=== PATIENT | male | born 1950 | race Caucasian/White ===

== ENCOUNTER 2018-10-15 18:02 | Emergency (ER) | payer OTHER ==
[2018-10-15 19:08] LABS: Absolute Lymphocytes (CBC) 0.5 K/uL (0.7-4.9); Absolute Monocytes 0.1 K/uL (0.1-1.3); Absolute Neutrophil 0.6 K/uL (1.8-8.0); Basophils % 0.6 % (0-1.3); Eosinophils % 4.4 % (0-4.4); Hematocrit 32.3 % (39.6-49.0); Lymphocytes % 41.2 % (15.3-44.8); MPV 9.1 fL (7.6-11.3); RBC Red Blood Cell Count 3.97 M/uL (4.33-5.43)
[2018-10-15 19:16] LABS: Potassium 4.8 mmol/L (3.5-5.1)
--- NOTE | 2018-10-15 20:25 | RAD REPORT ---
EXAM DESCRIPTION: CT - Chest Abdomen Pelvis W Cont - 10/15/2018 7:54 pm CLINICAL HISTORY: Chest and abdominal pain swallowed a toothpick COMPARISON: CT abdomen 2007 TECHNIQUE: Computed axial tomography of the chest, abdomen and pelvis was obtained. 100 cc Isovue-30 0 was administered intravenously. Oral contrast was given All CT scans are performed using dose optimization technique as appropriate and may include automated exposure control or mA/KV adjustment according to patient size. FINDINGS: The lungs are essentially clear. No mediastinal or hilar lymphadenopathy. A pleural effusion is not present. A pericardial effusion is not seen. Contrast is present throughout the thoracic esophagus. A cirrhotic liver with fatty infiltration The spleen measures 18 centimeters. Abdominal varices are present. The pancreas, adrenals and kidneys appear unremarkable. There is no evidence of diverticulitis. Small umbilical hernia contains fat A toothpick is not seen within the lungs. Evaluation for a toothpick within the the esophagus and sto mach is limited since each is opacified with contrast. Toothpick is not seen within duodenum or small bowel or colon Prostate gland moderately enlarged IMPRESSION: A toothpick is not visualized within the chest, abdomen or pelvis
[2018-10-15 20:40] LABS: Blood Morphology Comment NOTED (NOT SEEN); Ovalocytes 2+; Platelet Estimate DECR; Urine White Blood Cell Casts OK
--- NOTE | 2018-10-15 20:46 | ER ---
Nurse's Notes [facility] Name: Vasu Balderas Age: 68 yrs Sex: Male : 1950 Arrival Date: 10/15/2018 Time: 18:04 Bed 27 Private MD: Luis Ruiz Diagnosis: Unspecified cirrhosis of liver;Neutropenia Presentation: 10/15 18:07 Presenting complaint: Patient states: "I believe I swallowed a toothpick yesterday aa5 afternoon around 1pm". Pt states "I fell asleep and I woke up and I felt something going down my throat and I still have the sensation that something is stuck". Pt denies trouble swallowing. Transition of care: patient was not received from another setting of care. Onset of symptoms was October 2018. Risk Assessment: Do you want to hurt yourself or someone else? Patient reports no desire to harm self or others. Initial Sepsis Screen: Does the patient meet any 2 criteria? No. Patient's initial sepsis screen is negative. Does the patient have a suspected source of infection? No. Patient's initial sepsis screen is negative. Care prior to arrival: None. 18:07 Method Of Arrival: Ambulatory aa5 18:07 Acuity: MABEL 3 aa5 Historical: - Allergies: 18:10 No Known Allergies; aa5 - PMHx: 18:10 Asthma; Cirrhosis; Diabetes - NIDDM; Sinusitis; Sleep Apnea; Diverticulitis; prostate aa5 problems; - PSHx: 18:10 TURP; aa5 - Immunization history:: Adult Immunizations up to date. - Social history:: Smoking status: Patient/guardian denies using tobacco. - Ebola Screening: : No symptoms or risks identified at this time. Screenin:27 Abuse screen: Denies threats or abuse. Denies injuries from another. Nutritional mg2 screening: No deficits noted. Tuberculosis screening: No symptoms or risk factors identified. Fall Risk None identified. Assessment: 18:27 General: Appears in no apparent distress. comfortable, Behavior is calm, cooperative. mg2 Pain: Complains of pain in chest Pain does not radiate. Neuro: Level of Consciousness is awake, alert, obeys commands, Oriented to person, place, time, situation. Cardiovascular: Capillary refill < 3 seconds Patient's skin is warm and dry. Respiratory: Reports shortness of breath at rest Airway is patent Respiratory effort is even, unlabored, Respiratory pattern is regular, symmetrical. GI: No signs and/or symptoms were reported involving the gastrointestinal system. : No signs and/or symptoms were reported regarding the genitourinary system. EENT: No signs and/or symptoms were reported regarding the EENT system. Derm: Skin is intact, is healthy with good turgor, Skin is pink, warm \\T\\ dry. normal. Musculoskeletal: Circulation, motion, and sensation intact. Capillary refill < 3 seconds. 21:06 Reassessment: Patient denies pain at this time. mg2 Vital Signs: 18:10 BP 168 / 71; Pulse 84; Resp 16 S; Temp 98.6(TE); Pulse Ox 97% on R/A; Pain 0/10; aa5 20:10 BP 164 / 79; Pulse 86; Resp 18; Temp 98; Pulse Ox 98% on R/A; Pain 0/10; mg2 21:05 BP 145 / 78; Pulse 88; Resp 18; Temp 98; Pulse Ox 100% on R/A; Pain 0/10; mg2 ED Course: 18:04 Patient arrived in ED. mr 18:05 Luis Ruiz MD is Private Physician. mr 18:07 Arm band placed on. aa5 18:08 Triage completed. aa5 18:11 Taurus Taylor MD is Attending Physician. kdr 18:14 Zain Walker, ZI is Primary Nurse. mg2 18:27 No provider procedures requiring assistance completed. mg2 18:28 Patient has correct armband on for positive identification. mg2 18:31 Radiology exam delayed due to lab results not completed at this time. (BUN/Creatinine). vm2 18:50 Radiology exam delayed due to lab results not completed at this time. (BUN/Creatinine). vm2 18:59 Inserted saline lock: 20 gauge in right upper arm, using aseptic technique. Blood mg2 collected. 19:08 Attending Physician role handed off by Taurus Taylor MD [facility] 19:08 Anthony Peace MD is Attending Physician. naya 19:32 Notified ED physician of a critical lab result(s). WBCs of 1.2, Plt 39, Dr Peace bb notified. 19:54 Chest Abdomen Pelvis W Cont In Process Unspecified. EDMS 20:45 Luis Ruiz MD is Referral Physician. naya 20:45 Inocencio Malik MD is Referral Physician. naya 21:05 IV discontinued, intact, bleeding controlled, No redness/swelling at site. Pressure mg2 dressing applied. Administered Medications: No medications were administered Outcome: 20:45 Discharge ordered by . naya 21:06 Discharged to home ambulatory, with family. mg2 21:06 Condition: stable 21:06 Discharge instructions given to patient, family, Instructed on discharge instructions, follow up and referral plans. medication usage, Demonstrated understanding of instructions, follow-up care, medications, Prescriptions given X 1. 21:07 Patient left the ED. mg2 Signatures: Dispatcher [employer] EDMS Anthony Peace MD MD cha Rittger, Kevin, MD MD kdr Rivera, Mary mr Daphne Moss, RN RN Linsey Garcia RN RN aa5 Nelly Escobar [facility] Zain Walker RN RN mg2 Corrections: (The following items were deleted from the chart) 18:11 18:10 BP 168 / 71; Pulse 84bpm; Resp 16bpm; Spontaneous; Pulse Ox 97% RA; Temp 98.6F aa5 Temporal; aa5 18:59 18:27 Patient did not have IV access during this emergency room visit. mg2 mg2
--- NOTE | 2018-10-15 20:46 | EDPHYS ---
Physician Documentation [facility] Name: Vasu Balderas Age: 68 yrs Sex: Male : 1950 Arrival Date: 10/15/2018 Time: 18:04 Bed 27 Private MD: Luis Ruiz ED Physician Anthony Peace HPI: 10/15 18:28 This 68 yrs old Male presents to ER via Ambulatory with complaints of kdr Swallowed Foreign Body. 18:28 The patient or guardian reports the patient has a suspected foreign body, The reported kdr likely foreign body is a toothpick. Onset: The symptoms/episode began/occurred yesterday. Current symptoms: none, Has a "funny" feeling in his chest. Treatment Prior to Arrival: none. The patient has not experienced similar symptoms in the past. The patient has not recently seen a physician. Historical: - Allergies: 18:10 No Known Allergies; aa5 - PMHx: 18:10 Asthma; Cirrhosis; Diabetes - NIDDM; Sinusitis; Sleep Apnea; Diverticulitis; prostate aa5 problems; - PSHx: 18:10 TURP; aa5 - Immunization history:: Adult Immunizations up to date. - Social history:: Smoking status: Patient/guardian denies using tobacco. - Ebola Screening: : No symptoms or risks identified at this time. ROS: 18:28 Constitutional: Negative for fever, chills, and weight loss, Eyes: Negative for injury, kdr pain, redness, and discharge, ENT: Negative for injury, pain, and discharge, Neck: Negative for injury, pain, and swelling, Cardiovascular: Negative for chest pain, palpitations, and edema - he does have a "funny" feelin in his left upper chest Respiratory: Negative for shortness of breath, cough, wheezing, and pleuritic chest pain, Abdomen/GI: Negative for abdominal pain, nausea, vomiting, diarrhea, and constipation, Back: Negative for injury and pain, : Negative for injury, bleeding, discharge, and swelling, MS/Extremity: Negative for injury and deformity, Skin: Negative for injury, rash, and discoloration, Neuro: Negative for headache, weakness, numbness, tingling, and seizure activity. Psych: Negative for depression, anxiety, suicide ideation, homicidal ideation, and hallucinations, Allergy/Immunology: Negative for hives, rash, and allergies, Endocrine: Negative for neck swelling, polydipsia, polyuria, polyphagia, and marked weight changes, Hematologic/Lymphatic: Negative for swollen nodes, abnormal bleeding, and unusual bruising. Exam: 18:31 Constitutional: This is a well developed, well nourished patient who is awake, alert, kdr and in no acute distress. Head/Face: Normocephalic, atraumatic. Eyes: Pupils equal round and reactive to light, extra-ocular motions intact. Lids and lashes normal. Conjunctiva and sclera are non-icteric and not injected. Cornea within normal limits. Periorbital areas with no swelling, redness, or edema. Neck: Trachea midline, no thyromegaly or masses palpated, and no cervical lymphadenopathy. Supple, full range of motion without nuchal rigidity, or vertebral point tenderness. No Meningismus. Chest/axilla: Normal chest wall appearance and motion. Nontender with no deformity. No lesions are appreciated. Cardiovascular: Regular rate and rhythm with a normal S1 and S2. No gallops, murmurs, or rubs. Normal PMI, no JVD. No pulse deficits. Respiratory: Lungs have equal breath sounds bilaterally, clear to auscultation and percussion. No rales, rhonchi or wheezes noted. No increased work of breathing, no retractions or nasal flaring. Abdomen/GI: Soft, non-tender, with normal bowel sounds. No distension or tympany. No guarding or rebound. No evidence of tenderness throughout. Back: No spinal tenderness. No costovertebral tenderness. Full range of motion. Skin: Warm, dry with normal turgor. Normal color with no rashes, no lesions, and no evidence of cellulitis. MS/ Extremity: Pulses equal, no cyanosis. Neurovascular intact. Full, normal range of motion. Neuro: Awake and alert, GCS 15, oriented to person, place, time, and situation. Cranial nerves II-XII grossly intact. Motor strength 5/5 in all extremities. Sensory grossly intact. Cerebellar exam normal. Normal gait. Psych: Awake, alert, with orientation to person, place and time. Behavior, mood, and affect are within normal limits. Vital Signs: 18:10 BP 168 / 71; Pulse 84; Resp 16 S; Temp 98.6(TE); Pulse Ox 97% on R/A; Pain 0/10; aa5 20:10 BP 164 / 79; Pulse 86; Resp 18; Temp 98; Pulse Ox 98% on R/A; Pain 0/10; mg2 21:05 BP 145 / 78; Pulse 88; Resp 18; Temp 98; Pulse Ox 100% on R/A; Pain 0/10; mg2 MDM: 18:31 Data reviewed: vital signs, nurses notes, lab test result(s), EKG, radiologic studies. kdr Counseling: I had a detailed discussion with the patient and/or guardian regarding: the historical points, exam findings, and any diagnostic results supporting the discharge/admit diagnosis, lab results, radiology results, the need for outpatient follow up. 19:08 Patient medically screened. naya 10/15 18:28 Order name: CBC with Diff kdr 10/15 18:28 Order name: Chem 7; Complete Time: 19:49 kdr 10/15 18:29 Order name: CBC with Automated Diff; Complete Time: 20:44 EDMS 10/15 18:30 Order name: Troponin (emerg Dept Use Only); Complete Time: 19:49 kdr 10/15 19:27 Order name: CBC Smear Scan; Complete Time: 20:44 EDMS 10/15 18:30 Order name: EKG Strip; Complete Time: 18:57 kdr 10/15 19:46 Order name: Chest Abdomen Pelvis W Cont; Complete Time: 20:44 EDMS Administered Medications: No medications were administered Disposition: 10/15/18 20:45 Discharged to Home. Impression: Unspecified cirrhosis of liver, Neutropenia. - Condition is Stable. - Discharge Instructions: Diet and Hepatitis, Swallowed Foreign Body, Pediatric, Swallowed Foreign Body, Adult, [id number], Foreign Body. - Prescriptions for Protonix 40 mg Oral Tablet - take 1 tablet by ORAL route once daily; 30 tablet. - Medication Reconciliation Form, Thank You Letter, Antibiotic Education, Prescription Opioid Use form. - Follow up: Luis Ruiz; When: 1 - 2 days; Reason: Recheck today's complaints, Continuance of care, Re-evaluation by your physician. Follow up: Inocencio Malik; When: 2 - 3 days; Reason: Recheck today's complaints, Re-evaluation by your physician. - Problem is new. - Symptoms have improved. Signatures: Dispatcher [employer] EDMS Anthony Peace MD MD cha Rittger, Kevin, MD MD kdr Calderon, Audri, RN RN aa5 Zain Walker, RN RN mg2 Corrections: (The following items were deleted from the chart) 19:46 18:29 Abdomen Pelvis W Con+CT.RAD.BRZ ordered. [facility] 21:07 20:45 10/15/2018 20:45 Discharged to Home. Impression: Unspecified cirrhosis of liver; mg2 Neutropenia. Condition is Stable. Discharge Instructions: Diet and Hepatitis, Swallowed Foreign Body, Pediatric, Swallowed Foreign Body, Adult, [id number], Foreign Body. Prescriptions for Protonix 40 mg Oral Tablet - take 1 tablet by ORAL route once daily; 30 tablet. and Forms are Medication Reconciliation Form, Thank You Letter, Antibiotic Education, Prescription Opioid Use. Follow up: Luis Ruiz; When: 1 - 2 days; Reason: Recheck today's complaints, Continuance of care, Re-evaluation by your physician. Follow up: Inocencio Malik; When: 2 - 3 days; Reason: Recheck today's complaints, Re-evaluation by your physician. Problem is new. Symptoms have improved. naya
[2018-10-15 21:37] VITALS: TEMP 98
[2018-10-15 21:39] VITALS: BP 145/78; O2SAT 100
--- NOTE | 2018-10-16 08:08 | EKG ---
Test Date: 2018-10-15 Test Time: 18:55:38 Business Systems Advisor: MG MEASUREMENT RESULTS: Intervals: Rate: 81 MD: 170 QRSD: 78 QT: 380 QTc: 441 [place]: P: 66 MD: 170 QRS: 54 T: 52 INTERPRETIVE STATEMENTS: Normal sinus rhythm Normal ECG Compared to ECG 03/13/2014 10:58:47 No significant changes Electronically Signed On 10-16-18 08:07:06 CDT by Paul Linn
== END 2018-10-15 21:07 | disposition home or self-care (01) ==
LOC: ER 18:02
DX: D70.9 Neutropenia, unspecified (principal); K74.60 Unspecified cirrhosis of liver
CPT/HCPCS: 93005; 85025; 80048; 36415; 84484; 71260; 74177; 99284; Q9967

== ENCOUNTER 2019-03-17 09:36 | Emergency (ER) | payer OTHER ==
--- OUTSIDE RECORDS SUMMARY | 2019-03-17 09:38 | XMS REPORT ---
:1950 Author Organization e[employer] Care Team Providers Name Role Phone Olimpia Martinezh Provider Role Unavailable Allergies, Adverse Reactions, Alerts Substance Reaction Event Type Sulfa Info Not Available Drug Allergy Problems Problem Type Condition Code Onset Dates Condition Status Problem Erectile dysfunction, unspecified N52.9 Active erectile dysfunction type Problem Thrombocytopenia D69.6 Active Problem Kidney stones N20.0 Active Problem Body mass index (BMI) 30.0-30.9, Z68.30 Active adult Problem GERD without esophagitis K21.9 Active Problem Other obesity due to excess calories E66.09 Active Problem HTN, goal below 130/80 I10 Active Problem Type 2 diabetes mellitus with other E11.69 Active specified complication, unspecified whether intermediate teacher insulin use Problem Hypothyroidism, unspecified type E03.9 Active Problem Benign prostatic hyperplasia with N40.1 Active lower urinary tract symptoms, symptom details unspecified Assessment Thrombocytopenia D69.6 Active Assessment Erectile dysfunction, unspecified N52.9 Active erectile dysfunction type Assessment Body mass index (BMI) 30.0-30.9, Z68.30 Active adult Assessment Other obesity due to excess calories E66.09 Active Assessment Hypothyroidism, unspecified type E03.9 Active Assessment Type 2 diabetes mellitus with other E11.69 Active specified complication, unspecified whether intermediate teacher insulin use Assessment GERD without esophagitis K21.9 Active Assessment HTN, goal below 130/80 I10 Active Assessment Benign prostatic hyperplasia with N40.1 Active lower urinary tract symptoms, symptom details unspecified Medications Medication Code Code Instructions Start End Status Dosage System Date Date Terazosin HCl ND 17301342975 10 MG Orally Active 1 capsule Twice a day at bedtime Metformin HCl ND 19599165541 1000 MG Orally Active 1 tablet Twice a day with a meal Tamsulosin HCl ND 45784107219 0.4 MG Orally Jan 24, Mar 25, Active 1 capsule Once a day 2018 2018 Levothyroxine ND 88850788824 50 MCG Orally Active 1 tablet Sodium Once a day on an empty stomach in the morning Ramipril [facility] 94298447390 5 MG Orally Active 1 capsule Once a day Omeprazole [facility] 06796762073 40 MG Orally Active 1 capsule Once a day Results No Known Results Summary Purpose [employer] Submission
--- OUTSIDE RECORDS SUMMARY | 2019-03-17 09:39 | XMS REPORT ---
:1950 Author Organization [employer] Care Team Providers Name Role Phone Juan Diaz Provider Role Unavailable Allergies No Known Allergies Problems Problem Type Condition Code Onset Dates [...] other E11.69 Active specified complication, unspecified whether halfway insulin use Problem Hypothyroidism, unspecified type E03.9 Active Problem Benign prostatic hyperplasia with N40.1 Active lower urinary tract symptoms, symptom details unspecified Medications No Known Medications Results No Known Results Summary Purpose [employer] Submission
--- NOTE | 2019-03-17 10:49 | RAD REPORT ---
EXAM DESCRIPTION: RAD - Chest Single View - 03/17/2019 10:38 am CLINICAL HISTORY: CHEST PAIN Chest pain. COMPARISON: CHEST PA AND LAT 2 VIEW dated 06/16/2014; CHEST SINGLE VIEW dated 04/18/2014; CHEST PA AN D LAT 2 VIEW dated 05/24/2012; Chest Abdomen Pelvis W Cont dated 10/15/2018 FINDINGS: Portable technique limits examination quality. Emphysematous changes are present throughout the lungs. Vague focal opacity in the left lung base is noted, likely an area of scarring or atelectasis. The heart is normal in size. No displaced fractures .
[2019-03-17 11:00] LABS: Absolute Lymphocytes (CBC) 0.3 K/uL (0.7-4.9); Basophils % 1.1 % (0-1.3); Hematocrit 23.2 % (39.6-49.0); Lymphocytes % 30.6 % (15.3-44.8); MPV 8.2 fL (7.6-11.3); RBC Red Blood Cell Count 2.98 M/uL (4.33-5.43)
[2019-03-17 11:03] LABS: Protime INR 1.31
[2019-03-17 11:31] LABS: ALT/SGPT 20 U/L (12-78); AST/SGOT 17 U/L (15-37); Albumin 3.5 g/dL (3.4-5.0); Alkaline Phosphatase 79 U/L (45-117); BUN Blood Urea Nitrogen 16 mg/dL (7-18); Bicarbonate 24 mmol/L (21-32); Bilirubin Direct 0.2 mg/dL (0-0.2); Bilirubin Total 0.5 mg/dL (0.2-1.0); Glucose Level 194 mg/dL (74-106); Magnesium 1.6 mg/dL (1.8-2.4); NT PRO-BNP 96 pg/mL (<125); Potassium 5.5 mmol/L (3.5-5.1); Protein, Total 7.3 g/dL (6.4-8.2); Sodium Level 140 mmol/L (136-145); Troponin (Emerg Dept Use Only) < 0.02 ng/mL (0.0-0.045)
[2019-03-17 12:54] LABS: Anisocytosis 2+; Blood Morphology Comment NOTED (NOT SEEN); Elliptocytes 1+; Platelet Estimate DECR; Poikilocytosis 2+; Urine White Blood Cell Casts OK
[2019-03-17] MEDS ORDERED: SOD POLYSTYREN SUL 15 GM/60 ML UCUP ONE (13:14)
--- NOTE | 2019-03-17 13:15 | ER ---
Nurse's Notes [facility] Name: Vasu Balderas Age: 69 yrs Sex: Male : 1950 Arrival Date: 03/17/2019 Time: 09:38 Bed 19 Private MD: Diaz Martinez Diagnosis: Anemia, unspecified;Neutropenia, unspecified-chronic;Thrombocytopenia, unspecified-chronic Presentation: 03/17 10:06 Presenting complaint: Patient states: Sent by Dr Martinez for abnormal labs, states, " I'm ph not sure what they said but it was 3 things, something about platelets being low." Pt reports SOB, fatigue and chest pain when walking x "a few months". Transition of care: patient was not received from another setting of care. Onset of symptoms was March 17, 2019. Risk Assessment: Do you want to hurt yourself or someone else? Patient reports no desire to harm self or others. Initial Sepsis Screen: Does the patient meet any 2 criteria? No. Patient's initial sepsis screen is negative. Does the patient have a suspected source of infection? No. Patient's initial sepsis screen is negative. Care prior to arrival: None. 10:06 Method Of Arrival: Ambulatory ph 10:06 Acuity: MABEL 3 ph Historical: - Allergies: 10:16 Sulfa (Sulfonamide Antibiotics); ph - Home Meds: 10:16 metformin 1,000 mg Oral tab 1 tab 2 times per day [Active]; omeprazole 40 mg Oral cpDR ph 1 cap once daily [Active]; levothyroxine 50 mcg tab 1 tab once daily [Active]; ramipril 5 mg Oral cap 1 cap once daily [Active]; - PMHx: 10:16 Asthma; Cirrhosis; Diabetes - NIDDM; Diverticulitis; prostate problems; Sinusitis; ph Sleep Apnea; GERD; - PSHx: 10:16 TURP; Tonsillectomy; Appendectomy; ph - Immunization history:: Adult Immunizations unknown. - Social history:: Smoking status: Patient/guardian denies using tobacco. - Ebola Screening: : No symptoms or risks identified at this time. Screenin:16 Abuse screen: Denies threats or abuse. Denies injuries from another. Nutritional ph screening: No deficits noted. Tuberculosis screening: No symptoms or risk factors identified. Fall Risk None identified. Assessment: 10:18 General: Appears in no apparent distress. comfortable, well groomed, Behavior is calm, ph cooperative, appropriate for age, Reports fatigue for >3 days, Denies fever. Pain: Complains of pain in chest Pain does not radiate. Is intermittent. Neuro: Level of Consciousness is awake, alert, obeys commands, Oriented to person, place, time, situation. Cardiovascular: Reports chest pain, fatigue, lightheadedness, palpitations, shortness of breath, Denies nausea, vomiting, Capillary refill < 3 seconds in bilateral fingers Patient's skin is warm and dry. Rhythm is sinus rhythm Chest pain quality is pressure, is located in right left anterior chest wall episodes are intermittent is aggravated by activity. Respiratory: Reports shortness of breath on exertion Airway is patent Respiratory effort is even, unlabored, Respiratory pattern is regular, symmetrical. GI: Derm: Skin is intact, Skin is pale. Musculoskeletal: Circulation, motion, and sensation intact. Range of motion: intact in all extremities. 11:03 Reassessment: WBC 1, Hgb 7.4, Plt 41, ERP notified. 7 11:10 Reassessment: Patient appears in no apparent distress at this time. No changes from 7 previously documented assessment. Patient and/or family updated on plan of care and expected duration. Pain level reassessed. Patient is alert, oriented x 3, equal unlabored respirations, skin warm/dry/pink. 12:00 Reassessment: Patient appears in no apparent distress at this time. No changes from 7 previously documented assessment. Patient and/or family updated on plan of care and expected duration. Pain level reassessed. Patient is alert, oriented x 3, equal unlabored respirations, skin warm/dry/pink. 13:00 Reassessment: MASSIMO Hoang at bedside discussing results and POC. jl7 Vital Signs: 10:11 BP 138 / 54; Pulse 104; Resp 20; Temp 99.0(TE); Pulse Ox 100% on R/A; Weight 103.87 kg; ph Height 6 ft. 0 in. (182.88 cm); 11:00 BP 113 / 57; Pulse 91; Resp 16; Pulse Ox 100% ; Pain 0/10; jl7 13:00 BP 125 / 58; Pulse 89; Resp 16 S; Pulse Ox 98% on R/A; jl7 10:11 Body Mass Index 31.06 (103.87 kg, 182.88 cm) ph ED Course: 09:38 Patient arrived in ED. mr 09:38 Diaz Martinez DO is Private Physician. mr 09:51 Huyen Aguirre, ZI is Primary Nurse. ph 10:02 Viktor Gardner NP is PHCP. pm1 10:02 Taurus Taylor MD is Attending Physician. pm1 10:11 Triage completed. ph 10:16 Arm band placed on Patient placed in an exam room, on a stretcher, on cafeteria monitor, ph on pulse oximetry. 10:17 Patient has correct armband on for positive identification. Placed in gown. Bed in low ph position. Call light in reach. Side rails up X2. cafeteria monitor on. Pulse ox on. NIBP on. Door closed. Noise minimized. Warm blanket given. Head of bed elevated. 10:43 XRAY Chest (1 view) In Process Unspecified. EDMS 10:52 EKG done, by feed research technician. reviewed by Viktor Gardner NP. at1 13:12 Diaz Martinez DO is Referral Physician. pm1 13:14 Argentina Nelson MD is Referral Physician. pm1 13:15 Brooks Mason MD is Referral Physician. pm1 13:25 No provider procedures requiring assistance completed. IV discontinued, intact, jl7 bleeding controlled, No redness/swelling at site. Pressure dressing applied. Administered Medications: 13:22 Drug: Kayexalate 30 grams Route: PO; jl7 13:22 Follow up: Response: Medication administered at discharge. jl7 Outcome: 13:14 Discharge ordered by . pm1 13:25 Discharged to home ambulatory. jl7 13:25 Condition: stable 13:25 Discharge instructions given to patient, family, Instructed on discharge instructions, follow up and referral plans. Demonstrated understanding of instructions, follow-up care. 13:27 Patient left the ED. jl7 Signatures: Dispatcher [employer] TAINA JhonEkaterina mr Roddy Amanda, audio recording engineer EKG Tat1 Huyen Aguirre, ZI RN ph Viktor Gardner, MASSIMO TANKERMAN pm1 Edwin Ruiz RN RN jl7
--- NOTE | 2019-03-17 13:15 | EDPHYS ---
Physician Documentation [facility] Name: Vasu Balderas Age: 69 yrs Sex: Male : 1950 Arrival Date: 03/17/2019 Time: 09:38 Bed 19 Private MD: [facility] ED Physician Taurus Taylor HPI: 03/17 10:23 This 69 yrs old Male presents to ER via Ambulatory with complaints of pm1 Abnormal Lab Results. 10:23 Patient instructed to report the ER for evaluation of abnormal labs. Patient told that pm1 he has three abnormal lab results that he cannot recall. Thinks that one might be his platelets, has been in the low range for years. Had labs drawn yesterday at [facility] from his first visit with Dr. Martinez. The patient has been recently seen by a physician: the patient's primary care provider, Dr. Martinez yesterday. Patient reports fatigue for years , palpitations and chest pain with over exertion for the past 2-3 months. Walking his dog for at least half a block and he has to sit down to resolve his symptoms. Historical: - Allergies: 10:16 Sulfa (Sulfonamide Antibiotics); ph - Home Meds: 10:16 metformin 1,000 mg Oral tab 1 tab 2 times per day [Active]; omeprazole 40 mg Oral cpDR ph 1 cap once daily [Active]; levothyroxine 50 mcg tab 1 tab once daily [Active]; ramipril 5 mg Oral cap 1 cap once daily [Active]; - PMHx: 10:16 Asthma; Cirrhosis; Diabetes - NIDDM; Diverticulitis; prostate problems; Sinusitis; ph Sleep Apnea; GERD; - PSHx: 10:16 TURP; Tonsillectomy; Appendectomy; ph - Immunization history:: Adult Immunizations unknown. - Social history:: Smoking status: Patient/guardian denies using tobacco. - Ebola Screening: : No symptoms or risks identified at this time. ROS: 10:30 Constitutional: Negative for fever, chills, and weight loss, Eyes: Negative for injury, pm1 pain, redness, and discharge, ENT: Negative for injury, pain, and discharge, Neck: Negative for injury, pain, and swelling, Cardiovascular: Negative for chest pain, palpitations, and edema, Respiratory: Negative for shortness of breath, cough, wheezing, and pleuritic chest pain, Abdomen/GI: Negative for abdominal pain, nausea, vomiting, diarrhea, and constipation, Back: Negative for injury and pain, : Negative for injury, bleeding, discharge, and swelling, MS/Extremity: Negative for injury and deformity, Skin: Negative for injury, rash, and discoloration, Neuro: Negative for headache, weakness, numbness, tingling, and seizure. Exam: 10:30 Constitutional: This is a well developed, well nourished patient who is awake, alert, pm1 and in no acute distress. Head/Face: Normocephalic, atraumatic. Eyes: Pupils equal round and reactive to light, extra-ocular motions intact. Lids and lashes normal. Conjunctiva and sclera are non-icteric and not injected. Cornea within normal limits. Periorbital areas with no swelling, redness, or edema. ENT: Nares patent. No nasal discharge, no septal abnormalities noted. Tympanic membranes are normal and external auditory canals are clear. Oropharynx with no redness, swelling, or masses, exudates, or evidence of obstruction, uvula midline. Mucous membranes moist. Neck: Trachea midline, no thyromegaly or masses palpated, and no cervical lymphadenopathy. Supple, full range of motion without nuchal rigidity, or vertebral point tenderness. No Meningismus. Chest/axilla: Normal chest wall appearance and motion. Nontender with no deformity. No lesions are appreciated. Cardiovascular: Regular rate and rhythm with a normal S1 and S2. No gallops, murmurs, or rubs. Normal PMI, no JVD. No pulse deficits. Respiratory: Lungs have equal breath sounds bilaterally, clear to auscultation and percussion. No rales, rhonchi or wheezes noted. No increased work of breathing, no retractions or nasal flaring. Abdomen/GI: Soft, non-tender, with normal bowel sounds. No distension or tympany. No guarding or rebound. No evidence of tenderness throughout. Back: No spinal tenderness. No costovertebral tenderness. Full range of motion. Skin: Warm, dry with normal turgor. Normal color with no rashes, no lesions, and no evidence of cellulitis. MS/ Extremity: Pulses equal, no cyanosis. Neurovascular intact. Full, normal range of motion. 10:30 Neuro: Orientation: is normal, Motor: is normal, moves all fours. 13:00 Abdomen/GI: Rectal exam: rectal tone normal, Stool: normal, brown, skinner, guaiac pm1 negative, mass, is not appreciated, swelling, is not appreciated, tenderness, is not appreciated. Vital Signs: 10:11 BP 138 / 54; Pulse 104; Resp 20; Temp 99.0(TE); Pulse Ox 100% on R/A; Weight 103.87 kg; ph Height 6 ft. 0 in. (182.88 cm); 11:00 BP 113 / 57; Pulse 91; Resp 16; Pulse Ox 100% ; Pain 0/10; jl7 13:00 BP 125 / 58; Pulse 89; Resp 16 S; Pulse Ox 98% on R/A; jl7 10:11 Body Mass Index 31.06 (103.87 kg, 182.88 cm) ph MDM: 10:03 Patient medically screened. pm1 13:08 Physician consultation: [facility] Juan JAUREGUI was contacted at 13:05, regarding consult, pm1 patient's condition, since patient is hemodynamically stable can be discharged to home. has only seen the patient once so does not know the patient's lab history. Discussed lab results that I have from 2015 and his anemia is new and discussed possible cause of black tarry stool 1 month ago that lasted for 1 day and current negative stool guaiac. thrombocytopenia and leukopenia is chronic. Elevated K likely due to acei/arb. 13:09 Data reviewed: vital signs. Data interpreted: Pulse oximetry: on room air is 100 %. pm1 Interpretation: normal. 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 13:29 ED course: Patient instructed to stop salt substitute. Patient reports craving for pm1 mushrooms and has been putting substitute salt on substitute salt . 13:29 ED course: Patient's hyperkalemia likely due to heavy salt substitute ingestion. pm1 13:29 ED course: Has appointment with PCP in 5 days. pm1 03/17 10:10 Order name: Basic Metabolic Panel; Complete Time: 11:52 pm1 03/17 10:10 Order name: CBC with Diff; Complete Time: 13:11 pm1 03/17 10:10 Order name: LFT's; Complete Time: 11:52 pm1 03/17 10:10 Order name: Magnesium; Complete Time: 11:52 pm1 03/17 10:10 Order name: NT PRO-BNP; Complete Time: 11:52 pm1 03/17 10:10 Order name: PT-INR; Complete Time: 11:06 pm1 03/17 10:10 Order name: Troponin (emerg Dept Use Only); Complete Time: 11:52 pm1 03/17 10:10 Order name: XRAY Chest (1 view); Complete Time: 10:52 pm1 03/17 10:10 Order name: EKG; Complete Time: 10:11 pm1 03/17 10:10 Order name: Cardiac monitoring; Complete Time: 10:21 pm1 03/17 10:10 Order name: EKG - Nurse/Tech; Complete Time: 12:59 pm1 03/17 10:10 Order name: Type And Screen; Complete Time: 11:52 pm1 03/17 12:54 Order name: CBC Smear Scan; Complete Time: 13:11 EDMS 03/17 10:10 Order name: IV Saline Lock; Complete Time: 10:21 pm1 03/17 10:10 Order name: Labs collected and sent; Complete Time: 10:21 pm1 03/17 10:10 Order name: O2 Per Protocol; Complete Time: 10:21 pm1 03/17 10:10 Order name: O2 Sat Monitoring; Complete Time: 10:22 pm1 EC:52 Rate is 100 beats/min. Rhythm is regular, Normal Sinus Rhythm with No ectopy. No Q pm1 waves. T waves are Normal. No ST changes noted. Clinical impression: Normal ECG. Administered Medications: 13:22 Drug: Kayexalate 30 grams Route: PO; jl7 13:22 Follow up: Response: Medication administered at discharge. jl7 Disposition: 03/18 07:26 Co-signature as Attending Physician, Taurus Taylor MD I agree with the assessment and kdr plan of care. Disposition: 03/17/19 13:14 Discharged to Home. Impression: Anemia, unspecified, Neutropenia, unspecified - chronic, Thrombocytopenia, unspecified - chronic. - Condition is Stable. - Discharge Instructions: Anemia, Nonspecific, Thrombocytopenia, Neutropenia. - Medication Reconciliation Form, Thank You Letter, Antibiotic Education, Prescription Opioid Use form. - Follow up: Emergency Department; When: As needed; Reason: Worsening of condition. Follow up: Diaz Martinez DO; When: 5 - 6 days; Reason: Recheck today's complaints, Continuance of care, Re-evaluation by your physician. Follow up: Argentina Nelson MD; When: 2 - 3 days; Reason: Recheck today's complaints, Continuance of care, Re-evaluation by your physician. Follow up: Brooks Mason MD; When: 2 - 3 days; Reason: Recheck today's complaints, Continuance of care, Re-evaluation by your physician. - Problem is new. - Symptoms have improved. Signatures: Dispatcher [employer] EDMS Taurus Taylor MD MD [facility] Huyen Aguirre RN RN Viktor Gardner NP MOLD SANDER pm1 Edwin Ruiz RN RN jl7 Corrections: (The following items were deleted from the chart) 03/17 13:15 13:14 03/17/2019 13:14 Discharged to Home. Impression: Anemia, unspecified; pm1 Neutropenia, unspecified - chronic; Thrombocytopenia, unspecified - chronic. Condition is Stable. Forms are Medication Reconciliation Form, Thank You Letter, Antibiotic Education, Prescription Opioid Use. Follow up: Emergency Department; When: As needed; Reason: Worsening of condition. Follow up: Diaz Martinez; When: 5 - 6 days; Reason: Recheck today's complaints, Continuance of care, Re-evaluation by your physician. Problem is new. Symptoms have improved. pm1 13:27 13:15 03/17/2019 13:14 Discharged to Home. Impression: Anemia, unspecified; jl7 Neutropenia, unspecified - chronic; Thrombocytopenia, unspecified - chronic. Condition is Stable. Discharge Instructions: Anemia, Nonspecific, Thrombocytopenia, Neutropenia. Forms are Medication Reconciliation Form, Thank You Letter, Antibiotic Education, Prescription Opioid Use. Follow up: Emergency Department; When: As needed; Reason: Worsening of condition. Follow up: Diaz Martinez; When: 5 - 6 days; Reason: Recheck today's complaints, Continuance of care, Re-evaluation by your physician. Follow up: Argentina Kolb; When: 2 - 3 days; Reason: Recheck today's complaints, Continuance of care, Re-evaluation by your physician. Follow up: Brooks Mason; When: 2 - 3 days; Reason: Recheck today's complaints, Continuance of care, Re-evaluation by your physician. Problem is new. Symptoms have improved. pm1
--- NOTE | 2019-03-17 14:31 | EKG ---
Test Date: 2019-03-17 Test Time: 10:47:39 Parimutuel Ticket Cashier: RIO MEASUREMENT RESULTS: Intervals: Rate: 100 DC: 166 QRSD: 78 QT: 336 QTc: 433 [place]: P: 73 DC: 166 QRS: 64 T: 68 INTERPRETIVE STATEMENTS: Normal sinus rhythm Normal ECG Compared to ECG 10/15/2018 18:55:38 No significant changes Electronically Signed On 03-17-19 14:30:01 SOCIAL SECRETARY by Jamal Navarro
[2019-03-17 15:53] VITALS: TEMP 99
[2019-03-17 15:56] VITALS: BP 125/58; O2SAT 98
== END 2019-03-17 13:27 | disposition home or self-care (01) ==
LOC: ER 09:36
DX: D64.9 Anemia, unspecified (principal); D70.9 Neutropenia, unspecified; D69.6 Thrombocytopenia, unspecified; E11.9 Type 2 diabetes mellitus without complications; Z88.2 Allergy status to sulfonamides
CPT/HCPCS: 36415; 71045; 80048; 80076; 83735; 83880; 84484; 85025; 85610; 86850; 86900; 86901; 93005; 99284

== ENCOUNTER 2019-08-23 10:26 | Observation (INO) | payer OTHER ==
[2019-08-23 15:07] VITALS: BMI 31.8
[2019-08-24 10:09] VITALS: O2SAT 97
[2019-08-24 16:05] VITALS: BP 149/72; TEMP 98.6
== END 2019-08-24 17:20 | disposition home or self-care (01) ==
LOC: ER 10:26 → ERHOLD 12:57 → 2ND 14:17
PROVIDERS: ADMIT Family Medicine; ATTEND Family Medicine
PROC: 30233R1 Transfusion of Nonautologous Platelets into Peripheral Vein, Percutaneous Approach (ICD-10-PCS; principal; 2019-08-23)
PROC: 30233N1 Transfusion of Nonautologous Red Blood Cells into Peripheral Vein, Percutaneous Approach (ICD-10-PCS; 2019-08-24)
DX: K92.1 Melena (principal); D61.818 Other pancytopenia; K25.9 Gastric ulcer, unspecified as acute or chronic, without hemorrhage or perforation; J45.909 Unspecified asthma, uncomplicated; E11.9 Type 2 diabetes mellitus without complications; K21.9 Gastro-esophageal reflux disease without esophagitis; K74.60 Unspecified cirrhosis of liver; G47.33 Obstructive sleep apnea (adult) (pediatric); D69.6 Thrombocytopenia, unspecified; E03.9 Hypothyroidism, unspecified; E87.5 Hyperkalemia; N40.0 Benign prostatic hyperplasia without lower urinary tract symptoms
CPT/HCPCS: 36415; 36430; 80048; 80053; 82272; 82947; 83735; 85014; 85018; 85025; 85610; 85730; 86850; 86900; 86901; 93005; 96361; 96374; 99285; C9113; G0378; J1940; J2405; J3475; J7030; P9016; P9035

== ENCOUNTER 2021-07-23 07:26 | Day surgery (SDC) | payer OTHER ==
[2021-07-23 08:07] VITALS: TEMP 98.8; BMI 31.6
[2021-07-23 08:27] LABS: Absolute Lymphocytes (CBC) 0.3 K/uL (0.7-4.9); Hematocrit 30.4 % (39.6-49.0); Lymphocytes % 29.1 % (15.3-44.8); MPV 7.8 fL (7.6-11.3); RBC Red Blood Cell Count 3.43 M/uL (4.33-5.43)
[2021-07-23 08:45] LABS: Ferritin 37.9 ng/mL (26-388)
[2021-07-23] MEDS ORDERED: NA CHLORIDE 0.9% 250 ML ONE (08:58)
[2021-07-23 11:44] VITALS: BP 151/73; O2SAT 98
[2021-07-23 11:53] LABS: Absolute Lymphocytes (CBC) 0.4 K/uL (0.7-4.9); Hematocrit 29.6 % (39.6-49.0); Lymphocytes % 27.5 % (15.3-44.8); MPV 7.7 fL (7.6-11.3); RBC Red Blood Cell Count 3.35 M/uL (4.33-5.43)
== END 2021-07-23 11:46 | disposition home or self-care (01) ==
LOC: DS 07:26
PROVIDERS: ATTEND Internal Medicine Gastroenterology
DX: D50.9 Iron deficiency anemia, unspecified (principal); K74.60 Unspecified cirrhosis of liver; K31.7 Polyp of stomach and duodenum; R16.1 Splenomegaly, not elsewhere classified; K31.811 Angiodysplasia of stomach and duodenum with bleeding; D69.6 Thrombocytopenia, unspecified; D70.9 Neutropenia, unspecified
CPT/HCPCS: 85025 ×2; 36415; 86900; 86850; 86901; 82728; 83540; 84466; 36430; P9035; J7050; P9100

== ENCOUNTER 2021-08-01 07:25 | Day surgery (SDC) | payer OTHER ==
[2021-08-01] MEDS ORDERED: NA CHLORIDE 0.9% 250 ML ONE (07:41)
[2021-08-01 07:49] LABS: MPV 7.5 fL (7.6-11.3)
[2021-08-01] MEDS ORDERED: NA CHLORIDE 0.9% 500 ML ONE ×2 (08:00→09:34)
[2021-08-01 09:19] VITALS: BMI 31.6
[2021-08-01] MEDS ORDERED: ONDANSETRON 4 MG/2 ML VIAL ONE (09:53)
[2021-08-01 10:06] LABS: MPV 7.1 fL (7.6-11.3)
[2021-08-01 13:05] VITALS: TEMP 99
[2021-08-01 13:24] VITALS: BP 194/87; O2SAT 94
== END 2021-08-01 09:57 | disposition still patient (30) ==
LOC: DS 07:25
PROVIDERS: ATTEND Internal Medicine Gastroenterology
DX: D50.9 Iron deficiency anemia, unspecified (principal); K74.60 Unspecified cirrhosis of liver; D61.818 Other pancytopenia; K31.811 Angiodysplasia of stomach and duodenum with bleeding
CPT/HCPCS: 36415; 86900; 86850; 85049 ×2; 86901; 82947; 36430; P9035; J7050 ×2; J7040; J2405; P9100; P9073 ×2

== ENCOUNTER 2021-08-01 10:16 | Observation (INO) | payer OTHER ==
--- OUTSIDE RECORDS SUMMARY | 2021-08-01 10:19 | XMS REPORT | Continuity of Care Document ---
:1950 Author Organization [facility] t Address [address] Patel [address] [place] [id number] Care Team Providers Name Role Phone Guanaco Malik Attending Clinician Unavailable Guanaco Martinez Attending Clinician Unavailable Guanaco Martinez Admitting Clinician Unavailable Sara Admitting Clinician Unavailable Payers Payer Name Policy Type Policy Number Effective Date Expiration Date S ource Problems This patient has no known problems. Allergies, Adverse Reactions, Alerts Allergy Allergy Status Severity Reaction(s) Onset Inactive Treating Comm ents Source Name Type Date Date Clinician No Known DA Active [facility]ie 3-21 [place] [facility] 00:00: d 00 [facility] Sulfa Adverse Active Info Not [facility] Reaction Available [facility] ent [facility] Medications Ordered Filled Start Stop Current Ordering Indication Dosage Frequency Signature Comments Components Source Medication Medication Date Date Medication? Clinician (SIG) Name Name Albuterol Albuterol 2018-05 Yes Diaz [address] [facility] Sulfate HFA Sulfate HFA 2-16 Martinez needed [facility] Terazosin Terazosin Yes Diaz [address] [facility] HCl HCl Martinez at bed[facility] ent Clinics Levothyroxi Levothyroxi Yes Diaz [address] [facility] ne Sodium ne Sodium Martinez on an Silke es - empty [facility] stomach in l the Outpati morning ent Clinics Tamsulosin Tamsulosin Yes Diaz [address] [facility] HCl HCl [facility] Ramipril Ramipril Yes Diaz [address] [facility] Pantoprazol Pantoprazol Yes Diaz [address] [facility] e Sodium e Sodium Martinez [facility] Tab-A-Albert/ Tab-A-Albert/ Yes Diaz [address] [facility] Iron Iron [facility] Omeprazole Omeprazole Yes Diaz [address] [facility] Metformin Metformin Yes Diaz [address] [facility] HCl HCl Martinez with a [facility] GlipiZIDE GlipiZIDE Yes Diaz [address] [facility] XL XL Martinez with food [facility] Ramipril Ramipril Yes Diaz [address] [facility] GlipiZIDE GlipiZIDE Yes Diaz [address] [facility] XL XL Martinez with food [facility] Metformin Metformin Yes Diaz [address] [facility] HCl HCl Martinez with a [facility] Omeprazole Omeprazole Yes Diaz TAKE [address] [facility] Martinez CAPSULE BY [facility] EVERY DAY l [facility]pat[facility] ent Clinics Terazosin Terazosin Yes Diaz TAKE [address] HCl HCl Martinez CAPSULE BY [facility] TWICE A l DAY (ONE Outpati DOSE AT ent BEDTIME) Clinics Procedures This patient has no known procedures. Encounters Start End Encounter Admission Attending Care Care Encounter Source Date/Time Date/Time Type Type Clinicians Facility Department ID 2021-08-02 Inpatient Inocencio [facility] [id number] [facility] 08:15:00 [id number] [facility] 2021-07-24 Inpatient Inocencio Garcia [facility] ENDO [id number] [facility] 08:45:00 [id number] [facility] 2021-07-19 Inpatient Inocencio Garcia [facility] [id number] [facility] 15:00:00 [id number] [facility] 2021-07-02 Outpatient Martinez, [facility] [id number] [facility] [address] 11:29[facility]00 [facility] 2021-05-31 Outpatient Martinez, [facility] [id number] [facility] 09:24:01 Diaz [id number] [facility] 2021-05-29 Outpatient Martinez, [facility] [id number] [facility] 14:27:43 Diaz [id number] [facility] 2021-05-29 [facility] [id number] [facility] 14:16:37 Diaz [id number] [facility] 2021-05-29 Outpatient Martinez, [place] [id number] [facility] [address] 14:14:16 Diaz [id number] [facility] 2021-05-29 Outpatient Martinez, [place] [id number] [facility] [address] 13:55:59 Diaz [id number] [facility] 2021-05-29 Outpatient Martinez, [facility] [id number] [facility] 13:17:39 Diaz [id number] [facility] 2021-05-29 Outpatient Martinez, [facility] 13:17:10 Diaz [id number] [facility] 2021-05-29 Outpatient Martinez, [place] [id number] [facility] [address] 12:42:19 Diaz [id number] [facility] 2021-05-29 Outpatient Martinez, [facility] [id number] [facility] 12:40:06 Diaz [id number] [facility] 2021-05-29 Outpatient Martinez, [facility] [id number] [facility] 12:16:45 Diaz [id number] [facility] 2021-05-29 Outpatient Martinez, [facility] [id number] 12:04:48 Diaz [id number] [facility] 2021-05-29 Outpatient Martinez, [facility] [id number] [facility] [address] 11:16:20 Diaz 11025 [facility] 2021-05-29 Outpatient Martinez, [facility] [id number] 11:07:13 Diaz [id number] [facility] 2021-05-29 Outpatient Martinez, [facility] [id number] [facility] [address] 11:02:23 Diaz [id number] [facility] 2021-07-02 2021-07-02 ambulatory [facility] [id number] [facility] 2021-06-12 2021-06-12 ambulatory [facility] [id number] [facility] 2021-06-11 2021-06-11 ambulatory [facility] [id number] [facility] 2021-06-03 2021-06-03 ambulatory [facility] [id number] [facility] 2021-05-30 2021-05-30 ambulatory [facility] [id number] [facility] 2021-05-30 2021-05-30 ambulatory [facility] [id number] [facility] 2021-03-25 2021-03-25 ambulatory [facility] [id number] [facility] 2021-03-22 2021-03-22 ambulatory [facility] [id number] [facility] 2021-03-08 2021-03-08 ambulatory [facility] [id number] [facility] 2021-02-04 2021-02-04 Outpatient [facility] [id number] [facility] 2021-02-04 2021-02-04 Outpatient [facility] [id number] [facility] 2021-01-23 2021-01-23 Outpatient [facility] [id number] [facility] 2021-01-18 2021-01-18 Outpatient [facility] [id number] [facility] 2020-12-06 2020-12-06 Outpatient [facility] [id number] [facility] 2020-11-13 2020-11-13 Outpatient [facility] [id number] [facility] 2020-10-29 2020-10-29 Outpatient [facility] [id number] [facility] 2020-10-29 2020-10-29 Outpatient [facility] [id number] [facility] 2020-10-23 2020-10-23 Outpatient [facility] [id number] [facility] 2020-10-22 2020-10-22 Outpatient [facility] [id number] [facility] 2020-10-16 2020-10-16 Outpatient [facility] [id number] [facility] 2020-10-15 2020-10-15 Outpatient [facility] [id number] [facility] 2020-09-13 2020-09-13 Outpatient [facility] [id number] [facility] 2020-08-07 2020-08-07 Outpatient [facility] [id number] [facility] 2020-07-23 2020-07-23 Outpatient [facility] [id number] [facility] 2020-07-17 2020-07-17 Outpatient [facility] [id number] [facility] 2020-05-28 2020-05-28 Outpatient [facility] [id number] [facility] 2020-05-16 2020-05-16 Outpatient [facility] [id number] [facility] 2020-05-15 2020-05-15 Outpatient [facility] [id number] [facility] 2020-05-09 2020-05-09 Outpatient [facility] [id number] [facility] 2020-04-18 2020-04-18 Outpatient [facility] [id number] [facility] 2020-04-12 2020-04-12 Outpatient [facility] [id number] [facility] 2020-03-20 2020-03-20 Outpatient [facility] [id number] [facility] 2020-03-15 2020-03-15 Outpatient [facility] [id number] [facility] 2020-03-14 2020-03-14 Outpatient [facility] [id number] [facility] 2020-02-27 2020-02-27 Outpatient [facility] [id number] [facility] 2020-01-18 2020-01-18 [facility] [id number] [facility] 14:40:00 14:40:00 [facility] [employer] [facility] l Medicine Outpat[facility] ent Clinics 2020-01-11 2020-01-11 [facility] [id number] [facility] 15:38:00 15:38:00 [facility] [employer] [facility] Medicine l Medicine Outpati ent Clinics 2019-10-18 2019-10-18 [facility] [id number] [facility] 15:00:00 15:00:00 [facility] [employer] [facility] Medicine l Medicine Outpati ent Clinics 2019-09-29 2019-09-29 [facility] [id number] [facility] 08:15:00 08:15:00 t [facility] Medicine l Medicine Outpati ent Clinics 2019-08-26 2019-08-26 [facility] [id number] [facility] 10:43:00 10:43:00 t [employer] [facility] Medicine l Medicine Outpati ent Clinics 2019-07-06 2019-07-06 [facility] [id number] [facility] 14:45:00 14:45:00 t [employer] [facility] - [facility] Medicine l Medicine Outpati ent Clinics 2019-07-06 2019-07-06 [facility] [id number] [facility] 14:00:00 14:00:00 t [place] [facility] - [facility] Medicine l Medicine Outpati ent Clinics 2019-04-18 2019-04-18 [facility] [id number] [address] 11:56:00 11:56:00 [place] - Drive [facility] l Medicine Outpati ent Clinics 2019-03-24 2019-03-24 [facility] [id number] 15:21:00 15:21:00 [place] - Drive [facility] Medicine Outpati ent Clinics 2019-03-24 2019-03-24 [facility] [id number] 15:11:00 15:11:00 [place] - Drive [facility] Medicine Outpati ent Clinics 2019-03-23 2019-03-23 [facility] [id number] 14:29:00 14:29:00 t [place] - Drive [facility] Medicine Outpati ent Clinics 2019-03-22 2019-03-22 [facility] [id number] 16:20:00 16:20:00 [place] - Drive [facility] Medicine Outpati ent Clinics 2019-03-22 2019-03-22 [facility] [id number] [facility] 14:45:00 14:45:00 t [place] - Drive [facility] Medicine Outpati ent Clinics 2019-03-17 2019-03-17 [facility] [id number] [facility] 14:00:00 14:00:00 t Specialty/U Corinne kes - Specialty rology [facility] a [facility] l Clinic Outpati ent Clinics 2019-03-17 2019-03-17 [facility] [id number] 08:44:00 08:44:00 [place] - Drive [facility] Medicine Outpati ent Clinics 2019-03-04 2019-03-04 [facility] [id number] 09:01:00 09:01:00 [place] - Drive [facility] Medicine Outpati ent Clinics 2019-02-21 2019-02-21 [facility] [id number] [facility] 14:30:00 14:30:00 t [place] [facility] Medicine Medicine Outpati ent Clinics Results This patient has no known results.
[2021-08-01] MEDS ORDERED: ONDANSETRON 4 MG/2 ML VIAL ONE (10:40)
[2021-08-01 10:47] LABS: Absolute Lymphocytes (CBC) 0.1 K/uL (0.7-4.9); Lymphocytes % 18.9 % (15.3-44.8); RBC Red Blood Cell Count 3.67 M/uL (4.33-5.43)
[2021-08-01] MEDS ORDERED: MORPHINE 2 MG/ML SYR ONE (11:03)
[2021-08-01 11:23] LABS: Blood Morphology Comment NOT SEEN (NOT SEEN); Platelet Estimate DECR; White Blood Cell Scan OK (OK)
[2021-08-01] MEDS ORDERED: METOCLOPRAMIDE 10 MG/2mL INJ ONE (11:27)
[2021-08-01] MEDS ORDERED: NA CHLORIDE 0.9% 50 ML ONE ×2 (11:27→13:58)
[2021-08-01] MEDS ORDERED: DIPHENHYDRAMINE 50 MG/ML VIAL ONE (11:27)
[2021-08-01] MEDS ORDERED: FAMOTIDINE 20 MG/2 ML VIAL IV ONE (11:27)
--- NOTE | 2021-08-01 11:44 | RAD REPORT ---
EXAM DESCRIPTION: CT - Angio Aorta For Dissection - 08/01/2021 11:26 am CLINICAL HISTORY: . Chest and abd pain COMPARISON: 2019 TECHNIQUE: Computed tomography angiography of the chest, abdomen pelvis were obtained. 100 cc Isovue 370 was administered intravenously. Coronal and sagittal reconstruction were performed. MIP 3D reconstruction was performed All CT scans are performed using dose optimization technique as appropriate and may include automated exposure control or mA/KV adjustment according to patient size. FINDINGS: The examination is limited as the patient had difficulty breathing and difficulty lying s till. An aortic dissection is not seen. An aortic aneurysm is not displayed. Mild plaque within the celiac and SMA. MOE is patent A lung consolidation is not present. A pericardial effusion is not seen. A pleural effusion is not no yvette. The spleen measures 24 centimeters. Gallbladder is distended. A cirrhotic liver with varices No bowel obstruction. No diverticulitis. Small right inguinal hernia contains fat. IMPRESSION: Negative for an aortic aneurysm No gross aortic dissection Marked splenomegaly Gallbladder distention
[2021-08-01] MEDS ORDERED: LABETALOL 20 MG/4ML SYRINGE IV ONE (11:47)
[2021-08-01 11:59] LABS: Potassium 4.2 mmol/L (3.5-5.1); Troponin High Sensitivity 8.2 pg/mL (<58.9)
--- NOTE | 2021-08-01 12:00 | RAD REPORT ---
EXAM DESCRIPTION: Rohit Single View3 10:54 am CLINICAL HISTORY: sob COMPARISON: 2019 FINDINGS: Mild bilateral pulmonary opacities. The heart is normal size IMPRESSION: Mild bilateral pulmonary opacities may represent mild interstitial pulmonary edema
[2021-08-01] MEDS ORDERED: METHYLPREDNISOLONE 125 MG INJ ONE (12:42)
[2021-08-01] MEDS ORDERED: FUROSEMIDE 20 MG/ 2ML VIAL ONE (12:59)
--- NOTE | 2021-08-01 13:17 | EDPHYS ---
Physician Documentation [facility] Name: Vasu Balderas Age: 71 yrs Sex: Male : 1950 Arrival Date: 08/01/2021 Time: 10:11 Bed 8 Private MD: ED Physician Jung Parra HPI: 08/01 10:11 This 71 yrs old Male presents to ER via Stretcher with complaints of jmm Breathing Difficulty. 10:11 The patient has shortness of breath at rest. Onset: The symptoms/episode began/occurred jmm acutely, just prior to arrival. Duration: The symptoms are continuous. The patient's shortness of breath is aggravated by nothing, is alleviated by nothing. Associated signs and symptoms: Pertinent negatives: chest pain. This is a 71-year-old male with a history of asthma, cirrhosis, diabetes mellitus, diverticulitis the presents emerged department with complaints of shortness of breath which began soon after receiving a platelet infusion of the same day surgery. Patient currently denies any chest pain, abdominal pain. States having some swelling to the right leg along with shortness of breath. Denies history of pulmonary embolism.. Historical: - Allergies: 10:15 Sulfa (Sulfonamide Antibiotics); ph - Home Meds: 18:08 omeprazole 40 mg Oral cpDR 1 cap once daily [Active]; levothyroxine 50 mcg tab 1 tab ph once daily [Active]; metformin 1,000 mg Oral tab 1 tab 2 times per day [Active]; ramipril 5 mg Oral cap 1 cap once daily [Active]; - PMHx: 10:15 Asthma; Cirrhosis; Diabetes - NIDDM; Diverticulitis; GERD; prostate problems; ph Sinusitis; Sleep Apnea; - Immunization history:: Adult Immunizations unknown. - Social history:: Smoking status: unknown. ROS: 10:11 Constitutional: Negative for fever, chills, and weight loss, Cardiovascular: Negative jmm for chest pain, palpitations, and edema. 10:11 Respiratory: Positive for shortness of breath. 10:11 All other systems are negative. Exam: 10:11 Constitutional: This is a well developed, well nourished patient who is awake, alert, jmm and in no acute distress. Head/Face: atraumatic. Eyes: EOMI, no conjunctival erythema appreciated Neck: Trachea midline, Supple Chest/axilla: Normal chest wall appearance and motion. 10:11 Back: Normal ROM Skin: General appearance color normal MS/ Extremity: Moves all extremities, no obvious deformities appreciated, no edema noted to the lower extremities Neuro: Awake and alert Psych: Behavior is normal, Mood is normal, Patient is cooperative and pleasant 10:11 Cardiovascular: Rate: tachycardic. 10:11 Respiratory: Respirations: normal, Breath sounds: are clear throughout. 10:11 Abdomen/GI: Inspection: distension, Bowel sounds: normal, Palpation: soft, in all quadrants. 10:11 Musculoskeletal/extremity: right lower leg pedal edema appreciated. 10:11 Skin: Appearance: Color: normal in color. 10:11 Neuro: Motor: is normal. 10:11 Psych: Behavior/mood is pleasant, cooperative. Vital Signs: 10:11 BP 142 / 47; Pulse 126; Resp 32; Temp 98.3; Pulse Ox 88% on R/A; Weight 105.69 kg; ph 11:29 BP 199 / 89; Pulse 135; Resp 27; Pulse Ox 95% on 15% Non-rebreather mask; vg1 11:59 BP 161 / 80; Pulse 115; Resp 28; Pulse Ox 99% on Non-rebreather mask; ph 12:58 BP 124 / 71; Pulse 123; Resp 24; Pulse Ox 97% on Non-rebreather mask; ph 13:08 BP 150 / 75; Pulse 124; Resp 24; Pulse Ox 94% on 4 lpm NC; vg1 13:17 Temp 102.5(O); ph 14:07 BP 128 / 78; Pulse 122; Resp 20; Pulse Ox 94% on 5 lpm NC; ph 15:20 BP 98 / 64; Pulse 111; Resp 22; Temp 99.6; Pulse Ox 96% on 100% Venturi mask; ph 16:48 BP 124 / 72; Pulse 102; Resp 18; Pulse Ox 96% on Venturi mask; ph 18:05 BP 119 / 73; Pulse 105; Resp 22; Pulse Ox 97% on Venturi mask; ph 22:00 BP 124 / 71; Pulse 91; Resp 17 S; Pulse Ox 93% on 2 lpm NC; as6 08/02 00:00 BP 141 / 62; Pulse 102; Resp 17 S; Temp 97.1(TE); Pulse Ox 95% on 3 lpm NC; as6 02:00 BP 121 / 75; Pulse 95; Resp 18 S; Pulse Ox 97% on 2 lpm NC; as6 04:00 BP 132 / 73; Pulse 102; Resp 17; Pulse Ox 96% on 2 lpm NC; as6 06:00 BP 138 / 75; Pulse 100; Resp 13 S; Pulse Ox 97% on 2 lpm NC; as6 MDM: 08/01 10:11 Patient medically screened. [facility] 13:14 Data reviewed: vital signs, nurses notes. Counseling: I had a detailed discussion with gordo the patient and/or guardian regarding: the historical points, exam findings, and any diagnostic results supporting the discharge/admit diagnosis, lab results, radiology results, the need for further work-up and treatment in the hospital. ED course: I discussed the patient with Dr. Ramsey whom accepted the patient to his service. . 08/01 10:12 Order name: Basic Metabolic Panel; Complete Time: 12:02 [facility] 08/01 10:12 Order name: CBC with Diff; Complete Time: 11:24 [facility] 08/01 10:12 Order name: Troponin HS; Complete Time: 12:02 [facility] 08/01 11:16 Order name: SARS-COV-2 RT PCR (Document "Date of Onset" if Symptomatic); Complete Time: [facility] 12:46 08/01 11:24 Order name: CBC Smear Scan; Complete Time: 11:24 [facility] 08/01 11:47 Order name: CREATININE WHOLE BLOOD; Complete Time: 11:47 [facility] 08/01 11:47 Order name: Procalcitonin; Complete Time: 13:36 [facility] 08/01 11:47 Order name: Lactate; Complete Time: 13:17 [facility] 08/01 11:47 Order name: Blood Culture Adult (2) [facility] 08/01 15:59 Order name: CBC with Automated Diff [facility] 08/01 15:59 Order name: CBC with Automated Diff [facility] 08/01 15:59 Order name: Comprehensive Metabolic Panel [facility] 08/01 15:59 Order name: Comprehensive Metabolic Panel [facility] 08/01 16:06 Order name: Lactate Sepsis 2 HR Follow-up; Complete Time: 16:16 [facility] 08/01 10:12 Order name: XRAY Chest (1 view); Complete Time: 12:02 [facility] 08/01 10:45 Order name: CT Aorta for Dissection; Complete Time: 11:47 [facility] 08/02 05:21 Order name: CBC Smear Scan [facility] 08/02 08:39 Order name: Glucose, Ancillary Testing [facility] 08/02 09:02 Order name: CBC without Diff [facility] 08/02 09:19 Order name: Basic Metabolic Panel [facility] 08/02 09:23 Order name: Troponin High Sensitivity [facility] 08/02 10:16 Order name: RAD [facility] 08/02 12:27 Order name: Glucose, Ancillary Testing [facility] 08/01 10:12 Order name: EKG; Complete Time: 10:17 [facility] 08/01 10:12 Order name: Cardiac monitoring; Complete Time: 10:13 [facility] 08/01 10:12 Order name: EKG - Nurse/Tech; Complete Time: 10:19 [facility] 08/01 10:12 Order name: IV Saline Lock; Complete Time: 10:19 [facility] 08/01 10:12 Order name: Labs collected and sent; Complete Time: 10:43 [facility] 08/01 10:12 Order name: O2 Per Protocol; Complete Time: 10:14 [facility] 08/01 10:12 Order name: O2 Sat Monitoring; Complete Time: 10:14 [facility] 08/01 11:47 Order name: EKG - Nurse/Tech; Complete Time: 13:21 [facility] 08/01 15:59 Order name: Heart Healthy [facility] Administered Medications: 10:36 Drug: Zofran (Ondansetron) 4 mg Route: IVP; Site: left hand; ph 19:32 Follow up: Response: No adverse reaction ph 11:01 Drug: morphine 2 mg Route: IVP; Site: left hand; vg1 11:30 Follow up: Response: No adverse reaction; Pain is decreased ph 11:34 Drug: diphenhydrAMINE 25 mg Route: IVP; Site: left hand; ph 19:32 Follow up: Response: No adverse reaction ph 11:34 Drug: Pepcid (famotidine) 20 mg Route: IVP; Site: left hand; ph 19:31 Follow up: Response: No adverse reaction ph 11:34 Drug: Reglan (metoCLOPramide) 10 mg Route: IVP; Site: left hand; ph 19:31 Follow up: Response: No adverse reaction; Vomiting decreased ph 11:48 Drug: Labetalol 5 mg Route: IVP; Site: left hand; ph 12:00 Follow up: Response: No adverse reaction; Blood pressure is lowered ph 13:00 Drug: SOLU-Medrol (methylPrednisoLONE) 125 mg Route: IVP; Site: left hand; vg1 19:31 Follow up: Response: No adverse reaction ph 13:02 Drug: Lasix (furosemide) 20 mg Route: IVP; Site: left hand; vg1 19:31 Follow up: Response: No adverse reaction ph 13:25 Drug: Tylenol 1000 mg Route: PO; vg1 14:00 Follow up: Response: No adverse reaction; Temperature is decreased ph 14:08 Drug: Rocephin (cefTRIAXone) 1 grams Route: IV; Rate: calculated rate; Site: left hand; ph 14:35 Follow up: IV Status: Completed infusion ph Disposition: 08/02 16:31 Co-signature as Attending Physician, Jung Parra MD. rn Disposition Summary: 08/01/21 13:16 Hospitalization Ordered Hospitalization Status: Inpatient Admission [facility] Provider: Jovita Ramsey Condition: Stable jm Problem: new jmm Symptoms: have improved jm Bed/Room Type: Standard [facility] Location: [facility] ER HOLD(08/01/21 19:56) Room Assignment: ERHOLD-(08/01/21 19:56) Diagnosis - Acute respiratory distress syndrome [facility] Forms: - Medication Reconciliation Form jm - SBAR form [facility] Signatures: Dispatcher [employer] EDMS Dickson Castro PA PA danellem Jung Parra MD MD rn Hall, Patricia, RN RN Laly Sanchez RN RN Nelly Sanchez RN RN vg1 Corrections: (The following items were deleted from the chart) 08/01 10:48 10:17 Chest For PE Angio+CT.RAD.BRZ ordered. [facility] 19:56 13:16 Intensive Care Unit [facility] 19:56 13:16 [facility]
--- NOTE | 2021-08-01 13:17 | ER ---
Nurse's Notes [facility] Name: Vasu Balderas Age: 71 yrs Sex: Male : 1950 Arrival Date: 08/01/2021 Time: 10:11 Bed 8 Private MD: Diagnosis: Acute respiratory distress syndrome Presentation: 08/01 10:11 Chief complaint: Day surgery nurse reports that pt was receiving a platelet transfusion ph of 3 units, after transfusion pt became tachypneic and SOB, room air Spo2 88%, also c/o low back pain. Arrived to ED w/ NRB in place, Spo2 95%, denies hx of CHF or heart problems, has had platelet transfusion in the past w/ no issues. Coronavirus screen:. Ebola Screen: No symptoms or risks identified at this time. Initial Sepsis Screen: Does the patient meet any 2 criteria? RR > 20 per min. HR > 90 bpm. Does the patient have a suspected source of infection? No. Patient's initial sepsis screen is negative. Risk Assessment: Do you want to hurt yourself or someone else? Patient reports no desire to harm self or others. Onset of symptoms was August 01, 2021. 10:11 Method Of Arrival: Stretcher ph 10:11 Acuity: MABEL 2 ph Triage Assessment: 10:16 General: Appears uncomfortable, Behavior is cooperative, appropriate for age. Pain: ph Complains of pain in low back area. Neuro: Level of Consciousness is awake, alert, obeys commands, Oriented to person, place, time, situation. Cardiovascular: Reports shortness of breath, Capillary refill < 3 seconds in bilateral fingers Patient's skin is warm and dry. Edema is 1+ to right midcalf and right ankle Rhythm is sinus tachycardia. Respiratory: Reports shortness of breath at rest Airway is patent Respiratory effort is labored, Respiratory pattern is tachypnea Onset: The symptoms/episode began/occurred suddenly, the patient has moderate shortness of breath. GI: No signs and/or symptoms were reported involving the gastrointestinal system. Abdomen is distended. Derm: Skin is fragile, is thin, Skin is pink, warm \\T\\ dry. Musculoskeletal: Circulation, motion, and sensation intact. Historical: - Allergies: 10:15 Sulfa (Sulfonamide Antibiotics); ph - Home Meds: 18:08 omeprazole 40 mg Oral cpDR 1 cap once daily [Active]; levothyroxine 50 mcg tab 1 tab ph once daily [Active]; metformin 1,000 mg Oral tab 1 tab 2 times per day [Active]; ramipril 5 mg Oral cap 1 cap once daily [Active]; - PMHx: 10:15 Asthma; Cirrhosis; Diabetes - NIDDM; Diverticulitis; GERD; prostate problems; ph Sinusitis; Sleep Apnea; - Immunization history:: Adult Immunizations unknown. - Social history:: Smoking status: unknown. Screenin:16 Abuse screen: Denies threats or abuse. Denies injuries from another. Nutritional ph screening: No deficits noted. Tuberculosis screening: No symptoms or risk factors identified. Fall Risk None identified. Assessment: 10:20 General: SEE TRIAGE ASSESSMENT. ph 10:41 Reassessment: Pt actively vomiting, ERP notified, Zofran given, Xray at bedside for CXR.ph 11:08 Reassessment: Patient and/or family updated on plan of care and expected duration. Pain ph level reassessed. Pt taken to CT via stretcher, on monitor, accompanied by ZI Nagy. 11:26 Reassessment: Pt back from CT; pt tolerated CT poorly; pt c/o back pain and vomited vg1 during procedure. 11:28 Reassessment: Pt states, " I feel like this is making my asthma worse." Reports SOB, ph Spo2 98% on NRB. 14:06 Reassessment: Patient appears in no apparent distress at this time. Patient and/or ph family updated on plan of care and expected duration. Pain level reassessed. Patient is alert, oriented x 3, equal unlabored respirations, skin warm/dry/pink. Pt awake and alert, sitting up in bed eating ice chips, reports that he is feeling better than when he arrived to ED, family at bedside. 15:04 Reassessment: Patient appears in no apparent distress at this time. Patient and/or ph family updated on plan of care and expected duration. Pain level reassessed. Pt asleep w/ equal and unlabored respirations, Spo2 low at 88% on 5L NC, pt placed on venti-mask at 15L, Hospitalist at bedside to speak w/ pt, pt awakens easily. 16:00 Reassessment: Patient appears in no apparent distress at this time. Patient and/or ph family updated on plan of care and expected duration. Pain level reassessed. Pt asleep w/ equal and unlabored respirations, venturi mask remains in place. 16:47 Reassessment: Patient appears in no apparent distress at this time. Patient and/or ph family updated on plan of care and expected duration. Pain level reassessed. 17:30 Reassessment: Patient appears in no apparent distress at this time. Patient and/or ph family updated on plan of care and expected duration. Pain level reassessed. Patient is alert, oriented x 3, equal unlabored respirations, skin warm/dry/pink. Pt sitting up in bed eating, placed on NC at 4L, tolerating well w/ Spo2 maintained >93%, no reports of nausea. Vital Signs: 10:11 BP 142 / 47; Pulse 126; Resp 32; Temp 98.3; Pulse Ox 88% on R/A; Weight 105.69 kg; ph 11:29 BP 199 / 89; Pulse 135; Resp 27; Pulse Ox 95% on 15% Non-rebreather mask; vg1 11:59 BP 161 / 80; Pulse 115; Resp 28; Pulse Ox 99% on Non-rebreather mask; ph 12:58 BP 124 / 71; Pulse 123; Resp 24; Pulse Ox 97% on Non-rebreather mask; ph 13:08 BP 150 / 75; Pulse 124; Resp 24; Pulse Ox 94% on 4 lpm NC; vg1 13:17 Temp 102.5(O); ph 14:07 BP 128 / 78; Pulse 122; Resp 20; Pulse Ox 94% on 5 lpm NC; ph 15:20 BP 98 / 64; Pulse 111; Resp 22; Temp 99.6; Pulse Ox 96% on 100% Venturi mask; ph 16:48 BP 124 / 72; Pulse 102; Resp 18; Pulse Ox 96% on Venturi mask; ph 18:05 BP 119 / 73; Pulse 105; Resp 22; Pulse Ox 97% on Venturi mask; ph 22:00 BP 124 / 71; Pulse 91; Resp 17 S; Pulse Ox 93% on 2 lpm NC; as6 04 00:00 BP 141 / 62; Pulse 102; Resp 17 S; Temp 97.1(TE); Pulse Ox 95% on 3 lpm NC; as6 02:00 BP 121 / 75; Pulse 95; Resp 18 S; Pulse Ox 97% on 2 lpm NC; as6 04:00 BP 132 / 73; Pulse 102; Resp 17; Pulse Ox 96% on 2 lpm NC; as6 06:00 BP 138 / 75; Pulse 100; Resp 13 S; Pulse Ox 97% on 2 lpm NC; as6 ED Course: 08/01 10:11 Patient arrived in ED. ph 10:11 Dickson Castro PA is PHCP. jmm 10:11 Jung Parra MD is Attending Physician. jmm 10:15 Triage completed. ph 10:15 Arm band placed on Patient placed in an exam room, on a stretcher, on oxygen, on ph secured entrance monitor, on pulse oximetry. 10:16 Patient has correct armband on for positive identification. Placed in gown. Bed in low ph position. Call light in reach. cafeteria monitor on. Pulse ox on. NIBP on. Door closed. Noise minimized. Pillow given. 10:19 Huyen Aguirre, RN is Primary Nurse. ph 10:30 Initial lab(s) drawn, by pr, sent to lab. Inserted saline lock: 20 gauge in left iw antecubital area, using aseptic technique. Blood collected. 10:51 Maintain EMS IV. Dressing intact. Good blood return noted. Site clean \\T\\ dry. Gauge \\T\\ iw site: 20 left hand. 10:56 XRAY Chest (1 view) In Process Unspecified. EDMS 11:28 CT Aorta for Dissection In Process Unspecified. EDMS 12:26 First set of blood cultures drawn. wm 12:37 Lactate Sent. wm 12:37 Procalcitonin Sent. wm 12:37 Blood Culture Adult (2) Sent. wm 13:15 Jovita Ramsey MD is Hospitalizing Provider. jmm 13:17 Notified Nurse Practitioner and/or Physician [facility] [employer] of a critical lab result(s), ph lactate 5.6. 13:28 Second set of blood cultures drawn. kj1 16:52 No provider procedures requiring assistance completed. Patient admitted, IV remains in ph place. Administered Medications: 10:36 Drug: Zofran (Ondansetron) 4 mg Route: IVP; Site: left hand; ph 19:32 Follow up: Response: No adverse reaction ph 11:01 Drug: morphine 2 mg Route: IVP; Site: left hand; vg1 11:30 Follow up: Response: No adverse reaction; Pain is decreased ph 11:34 Drug: diphenhydrAMINE 25 mg Route: IVP; Site: left hand; ph 19:32 Follow up: Response: No adverse reaction ph 11:34 Drug: Pepcid (famotidine) 20 mg Route: IVP; Site: left hand; ph 19:31 Follow up: Response: No adverse reaction ph 11:34 Drug: Reglan (metoCLOPramide) 10 mg Route: IVP; Site: left hand; ph 19:31 Follow up: Response: No adverse reaction; Vomiting decreased ph 11:48 Drug: Labetalol 5 mg Route: IVP; Site: left hand; ph 12:00 Follow up: Response: No adverse reaction; Blood pressure is lowered ph 13:00 Drug: SOLU-Medrol (methylPrednisoLONE) 125 mg Route: IVP; Site: left hand; vg1 19:31 Follow up: Response: No adverse reaction ph 13:02 Drug: Lasix (furosemide) 20 mg Route: IVP; Site: left hand; vg1 19:31 Follow up: Response: No adverse reaction ph 13:25 Drug: Tylenol 1000 mg Route: PO; vg1 14:00 Follow up: Response: No adverse reaction; Temperature is decreased ph 14:08 Drug: Rocephin (cefTRIAXone) 1 grams Route: IV; Rate: calculated rate; Site: left hand; ph 14:35 Follow up: IV Status: Completed infusion ph Outcome: 13:16 Decision to Hospitalize by Provider. [facility] 19:30 Admitted to ER Hold. Please see [facility] for further documentation. ph 19:30 Condition: stable 19:30 Instructed on the need for admit. 08/02 12:53 Patient left the ED. [email or web address] Signatures: Dispatcher [employer] EDMS Dickson Castro PA PA jmm Williams, Irene, RN RN iw Hall, Patricia, RN RN ph Leal, Jahala, RN RN jl7 Jackson, Kandis kj1 Garcia, Victoria, RN RN vg1 Blank Olivares Ashby, RN RN as6 Corrections: (The following items were deleted from the chart) 08/01 10:18 10:16 Cardiovascular: Reports shortness of breath, Capillary refill < 3 seconds in ph bilateral fingers Patient's skin is warm and dry. Rhythm is sinus tachycardia ph
[2021-08-01] MEDS ORDERED: ACETAMINOPHEN 500 MG TAB ONE (13:25)
[2021-08-01] MEDS ORDERED: CEFTRIAXONE 1000 MG/VIAL ONE (13:58)
--- NOTE | 2021-08-01 15:51 | P.HP ---
Certification for Inpatient With expected LOS: >2 Midnights Patient will require the following post-hospital care: None Practitioner: I am a practitioner with admitting privileges, knowledge of patient current condition, hospital course, and medical plan of care. Services: Services provided to patient in accordance with Admission requirements found in Title 42 Section 412.3 of the Code of Federal Regulations Patient History Date of Service: 08/01/21 Reason for admission: Shortness of breath History of Present Illness: 71-year-old male with history of liver cirrhosisdue to JORDAN, pancytopenia, diabetes mellitus, on regular every 6 months PRBC and platelet transfusion admitted from the transfusion unit after developing shortness of breath while undergoing 3 unit platelet transfusion today. Patient denies any chest pain. He was noted with wheezing on arrival in the ED his O2 sat was in the low 80s requiring supplemental oxygen with gradual escalation to facemask. He is satting at 94% now on 10 L nonrebreather mask. His blood pressure was initially elevated at 190s but have trended down to the low 90s now. states his blood pressure normally runs in the low 100s. Patient feels much better now he denies any headache dizziness. He denies any cough. He denies any previous similar reactions in the past. He admits to intermittent lower extremity swelling but states he has been worked up for heart failure in the past and work-up was negative. He has been admitted for presumed platelet transfusion reaction Allergies Sulfa (Sulfonamide Antibiotics) Allergy (Verified 07/23/21 07:42) Nausea/Vomiting Home Medications: Glipizide [Glipizide ER] 10 mg PO DAILY 03/13/14 Metformin HCl [Glucophage] 1,000 mg PO BID 03/13/14 Terazosin HCl [Hytrin] 10 mg PO BID 03/13/14 ramipriL [Altace*] 5 mg PO DAILY WITH BREAKFAST 03/13/14 Levothyroxine [Synthroid*] 50 mcg PO [id number] 08/23/19 Albuterol Sulfate [Proair Respiclick] 1 inh PO DAILY 07/23/21 Ferrous Sulfate [Iron] 1 tab PO DAILY 07/23/21 Fluticasone/Vilanterol [Breo Ellipta 200-25 Mcg INH] 1 inh PO DAILY 07/23/21 Omeprazole [Prilosec] 40 mg PO BID 07/23/21 - Past Medical/Surgical History Diabetic: Yes -: Diabetes mellitus type 2 [id number] -: Obstructive sleep apnea -: GERD with gastric varices -: Liver cirrhosis -: BPH -: Hypertension -: Ankle surgery -: Appendectomy -: Tonsillectomy -: TURP Psychosocial/ Personal History: Patient lives at home. He has a girlfriend. - Family History Sister -: Diabetes - Social History Smoking Status: Never smoker Alcohol use: No CD- Drugs: No Caffeine use: No Place of Residence: Home Review of Systems 10-point ROS is otherwise unremarkable Physical Examination - Physical Exam General: Alert, In no apparent distress, Oriented x3, Obese HEENT: Atraumatic, Normocephalic, PERRLA Neck: Supple, 2+ carotid pulse no bruit, JVD not distended Respiratory: Clear to auscultation bilaterally, Diminished Cardiovascular: No edema, Regular rate/rhythm, Normal S1 S2 Capillary refill: <2 Seconds Gastrointestinal: Normal bowel sounds, Soft and benign, Non-distended Musculoskeletal: No clubbing, No swelling Integumentary: No rashes, No breakdown, No significant lesion Neurological: Normal speech, Normal strength at 5/5 x4 extr, Sensation intact, Cranial nerves 3-12 intact - Studies Laboratory Data (last 24 hrs) 08/01/21 10:30: WBC 0.7 L* D, Hgb 10.8 L, Hct 32.0 L, Plt Count 63 L 08/01/21 10:30: Sodium 141, Potassium 4.2, BUN 17, Creatinine 1.29, Glucose 187 H Assessment and Plan - Problems (Diagnosis) (1) Transfusion reaction due to platelet antibody Current Visit: Yes Status: Acute - Plan Platelet transfusion reaction with acute lung injury History of pancytopenia Diabetes mellitus Hypertension Liver cirrhosis History of asthma/sleep apnea Plan We will admit patient to the ICU Continue supplemental oxygen, will increase if worsening shortness of breath on BiPAP possible intubation if needed Start IV Solu-Medrol every 6 Dose antihistamine now Monitor vitals closely Hold further transfusion We do low-dose Lasix to keep him volume depleted state although pulmonary edema not due to fluid overload Might benefit from echocardiogram prior to discharge SCDs for DVT prophylaxis No heparin given significant thrombocytopenia Advance directivediscussed with patientfull code Start PPI Discharge Plan: Home Plan to discharge in: 48 Hours - Advance Directives Does patient have a Living Will: Yes Does patient have a Durable POA for Healthcare: Yes - Code Status/Comfort Care Code Status Assessed: No Code Status: Full Code Physician Review: Patient Assessed, Agree with Above Assessment and Plan Time Spent Managing Pts Care (In Minutes): 60
[2021-08-01] MEDS ORDERED: ALBUTEROL 2.5 MG/3 ML NEB SOL NEB PRN (15:52)
[2021-08-01] MEDS ORDERED: ACETAMINOPHEN 500 MG TAB PO PRN (15:52)
[2021-08-01] MEDS ORDERED: MORPHINE 2 MG/ML SYR IV PRN (15:52)
[2021-08-01] MEDS ORDERED: ONDANSETRON 4 MG/2 ML VIAL IV PRN (15:52)
[2021-08-01] MEDS ORDERED: HYDRALAZINE HCL 20 MG/ML VIAL IV PRN (15:56)
[2021-08-01] MEDS ORDERED: guaiFENesin 100 MG/5 ML UCUP PO PRN (15:56)
[2021-08-01] MEDS ORDERED: BENZONATATE 100 MG CAP PO PRN (15:56)
[2021-08-01] MEDS: INSULIN -REGULAR HUMAN 50 UNIT/0.5 ML ML SQ SCH ×2 (16:30→21:00)
[2021-08-01] MEDS: FUROSEMIDE 40 MG TABLET PO SCH (17:00)
[2021-08-01] MEDS: METHYLPREDNISOLONE 125 MG INJ IV SCH (18:00)
[2021-08-01] MEDS ORDERED: IPRATROPIUM BROM 0.5MG/2.5ML ONE (20:00)
[2021-08-01] MEDS: IPRATROPIUM BROM 0.5MG/2.5ML NEB SCH (20:32)
[2021-08-01] MEDS: FAMOTIDINE 20 MG TAB PO SCH (21:00)
[2021-08-01] MEDS: INSULIN GLARGINE 100 UNIT/ML SQ SCH (21:00)
[2021-08-01 22:14] VITALS: O2SAT 98
[2021-08-02] MEDS ORDERED: IPRATROPIUM BROM 0.5MG/2.5ML ONE ×2 (01:00→08:47)
[2021-08-02] MEDS: IPRATROPIUM BROM 0.5MG/2.5ML NEB SCH ×2 (01:20→09:04)
[2021-08-02 03:57] LABS: Absolute Lymphocytes (CBC) 0.2 K/uL (0.7-4.9); Hematocrit 33.5 % (39.6-49.0); Lymphocytes % 4.9 % (15.3-44.8); MPV 8.6 fL (7.6-11.3); RBC Red Blood Cell Count 3.76 M/uL (4.33-5.43)
[2021-08-02 04:22] LABS: Albumin 3.1 g/dL (3.4-5.0); Bilirubin Total 1.1 mg/dL (0.2-1.0); Potassium 5.4 mmol/L (3.5-5.1)
[2021-08-02 05:21] LABS: Blood Morphology Comment NOT SEEN (NOT SEEN); Platelet Estimate DECR; Platelets, Giant OCC; White Blood Cell Scan OK (OK)
[2021-08-02] MEDS: METHYLPREDNISOLONE 125 MG INJ IV SCH ×2 (06:00)
[2021-08-02] MEDS: INSULIN -REGULAR HUMAN 50 UNIT/0.5 ML ML SQ SCH ×2 (07:30→11:30)
[2021-08-02] MEDS ORDERED: FUROSEMIDE 40 MG TABLET ONE (08:41)
[2021-08-02] MEDS ORDERED: ZINC SULFATE 220 MG CAP ONE (08:41)
[2021-08-02] MEDS ORDERED: FAMOTIDINE 20 MG TAB ONE (08:41)
[2021-08-02] MEDS ORDERED: INSULIN -REGULAR HUMAN 50 UNIT/0.5 ML ML ONE ×2 (08:42→12:33)
[2021-08-02 08:58] LABS: Hematocrit 32.1 % (39.6-49.0); MPV 8.2 fL (7.6-11.3); RBC Red Blood Cell Count 3.66 M/uL (4.33-5.43)
[2021-08-02] MEDS ORDERED: ZINC SULFATE 220 MG CAP PO SCH (09:00)
[2021-08-02] MEDS: FAMOTIDINE 20 MG TAB PO SCH (09:00)
[2021-08-02] MEDS: FUROSEMIDE 40 MG TABLET PO SCH (09:00)
[2021-08-02] MEDS: INSULIN GLARGINE 100 UNIT/ML SQ SCH (09:00)
[2021-08-02 09:19] LABS: Potassium 4.8 mmol/L (3.5-5.1)
[2021-08-02 10:06] VITALS: BP 126/88
--- NOTE | 2021-08-02 10:16 | RAD REPORT ---
EXAM DESCRIPTION: Rohit Single View4 10:07 am CLINICAL HISTORY: Shortness of breath COMPARISON: August 01, 2020 FINDINGS: The lungs appear clear of acute infiltrate. The heart is normal size IMPRESSION: No acute abnormalities displayed
[2021-08-02 11:08] VITALS: BMI 31.6
[2021-08-02 11:10] VITALS: TEMP 97.8
--- NOTE | 2021-08-02 12:07 | P.DS ---
Admission Date: 08/01/21 (Hospitalist discharge) Discharge Date: 08/02/21 Disposition: ROUTINE DISCHARGE Discharge Condition: FAIR Reason for Admission: Shortness of breath Brief History of Present Illness: Patient is 71 years of age with chronic liver disease thrombocytopenia but after platelet transfusion reaction is admitted with shortness of breath Hospital Course: Patient did well during the course of his stay at the time of discharge alert oriented responsive cooperative vitals all stable EKG showed right bundle branch block compared to last year discussed with Dr. Guillaume cardiology No intervention needed at this point patient has chronic thrombocytopenia aspirated count is 32,[address] Smith is stable to be discharged oxygenation satisfactory room air sat is 98% no change in medication CT dissection of the chest and the chest x-ray did not show any acute changes Vital Signs/Physical Exam: Temp Pulse Resp BP Pulse Ox 97.8 F 98 H 126/88 94 08/02/21 08:00 08/02/21 09:00 08/02/21 09:00 08/02/21 08:00 Laboratory Data at Discharge: WBC 2.9 K/uL (4.3-10.9) L D 08/02/21 08:28 Hgb 10.8 g/dL (13.6-17.9) L 08/02/21 08:28 Hct 32.1 % (39.6-49.0) L 08/02/21 08:28 Plt Count 32 K/uL (152-406) L* 08/02/21 08:28 Sodium 134 mmol/L (136-145) L 08/02/21 08:28 Potassium 4.8 mmol/L (3.5-5.1) 08/02/21 08:28 BUN 30 mg/dL (7-18) H 08/02/21 08:28 Creatinine 1.92 mg/dL (0.55-1.3) H 08/02/21 08:28 Glucose 206 mg/dL (74-106) H 08/02/21 08:28 Total Bilirubin 1.1 mg/dL (0.2-1.0) H 08/02/21 03:15 AST 30 U/L (15-37) 08/02/21 03:15 ALT 28 U/L (12-78) 08/02/21 03:15 Alkaline Phosphatase 56 U/L (45-117) 08/02/21 03:15 Home Medications: Glipizide [Glipizide ER] 10 mg PO DAILY 03/13/14 Metformin HCl [Glucophage] 1,000 mg PO BID 03/13/14 Terazosin HCl [Hytrin] 10 mg PO BID 03/13/14 ramipriL [Altace*] 5 mg PO DAILY WITH BREAKFAST 03/13/14 Levothyroxine [Synthroid*] 50 mcg PO [id number] 08/23/19 Albuterol Sulfate [Proair Respiclick] 1 inh PO DAILY 07/23/21 Ferrous Sulfate [Iron] 1 tab PO DAILY 07/23/21 Fluticasone/Vilanterol [Breo Ellipta 200-25 Mcg INH] 1 inh PO DAILY 07/23/21 Omeprazole [Prilosec] 40 mg PO BID 07/23/21 Physician Discharge Instructions: Patient to follow-up with Dr. Malik Diet: Regular Followup: CORTNEY BARR [Primary Care Provider] -
[2021-08-02] MEDS ORDERED: INSULIN GLARGINE 100 UNIT/ML SQ ONE (12:33)
--- NOTE | 2021-08-05 11:25 | EKG ---
Test Date: 2021-08-01 Test Time: 13:18:48 Glass Vial Filler: LAMINE MEASUREMENT RESULTS: Intervals: Rate: 125 IN: 132 QRSD: 116 QT: 326 QTc: 470 Moore: P: 41 IN: 132 QRS: 140 T: 52 INTERPRETIVE STATEMENTS: Sinus tachycardia Right bundle branch block Abnormal ECG Compared to ECG 08/01/2021 10:19:30 No significant changes Electronically Signed On 08-05-21 11:14:09 CDT by Jamal Navarro
--- NOTE | 2021-08-05 11:26 | EKG ---
Test Date: 2021-08-01 Test Time: 08:40:18 Car Customizer: SANDRITAOT MEASUREMENT RESULTS: Intervals: Rate: 124 NC: 144 QRSD: 120 QT: 372 QTc: 534 Smoot: P: 75 NC: 144 QRS: 109 T: 62 INTERPRETIVE STATEMENTS: Sinus tachycardia Right bundle branch block Abnormal ECG Compared to ECG 08/23/2019 12:20:00 Right bundle-branch block now present Sinus rhythm no longer present Electronically Signed On 08-05-21 11:14:19 CDT by Jamal Navarro
--- NOTE | 2021-08-06 08:35 | EKG ---
Test Date: 2021-08-01 Test Time: 10:19:30 Bender Machine: LAMINE MEASUREMENT RESULTS: Intervals: Rate: 123 AK: 136 QRSD: 116 QT: 336 QTc: 481 Gamerco: P: 75 AK: 136 QRS: 110 T: 47 INTERPRETIVE STATEMENTS: Sinus tachycardia Right bundle branch block Abnormal ECG Compared to ECG 08/01/2021 08:40:18 No significant changes Electronically Signed On 08-06-21 08:28:37 CDT by Jamal Navarro
== END 2021-08-02 12:55 | disposition home health service (06) ==
LOC: ER 10:16 → ERHOLD 15:53 → INTOOBSV 15:53
PROVIDERS: ADMIT Internal Medicine; ATTEND Internal Medicine
DX: T80.89XA Other complications following infusion, transfusion and therapeutic injection, initial encounter (principal); R06.02 Shortness of breath; J95.84 Transfusion-related acute lung injury (TRALI); E11.9 Type 2 diabetes mellitus without complications; K21.9 Gastro-esophageal reflux disease without esophagitis; G47.33 Obstructive sleep apnea (adult) (pediatric); N40.0 Benign prostatic hyperplasia without lower urinary tract symptoms; Z88.2 Allergy status to sulfonamides; Z20.822 Contact with and (suspected) exposure to COVID-19
CPT/HCPCS: 96365; 93005 ×2; 87040 ×2; 85025 ×2; 80048 ×2; 36415; 87205; 82565; 82947 ×2; 83605 ×2; 85027; 84484 ×2; 80053; 84145; 71275; 74175; 71045 ×2; 94640; 94760 ×2; 96375; 99285; U0003; Q9967; J1940; J2765; J1200; J2270; J2930; J2405; G0378 ×3

== ENCOUNTER 2021-10-02 19:16 | Inpatient (IN) | payer OTHER ==
--- OUTSIDE RECORDS SUMMARY | 2021-10-02 19:20 | XMS REPORT | Continuity of Care Document ---
:1950 Author Organization [facility] t Address [address] Patel [address] [place] [id number] Care Team Providers Name Role Phone Guanaco Martinez Attending Clinician Unavailable Guanaco Malik Attending Clinician Unavailable Sara Admitting Clinician Unavailable Guanaco Martinez Admitting Clinician Unavailable Payers Payer Name Policy Type Policy Number Effective Date Expiration Date S ource Problems This patient has no known problems. Allergies, Adverse Reactions, Alerts Allergy Allergy Status Severity Reaction(s) Onset Inactive Treating Comm ents Source Name Type Date Date Clinician No Known DA Active U [facility] Allergie 3-21 [facility] s 00:00: d 00 [facility] Sulfa Adverse Active Info Not Common Reaction Available Spiri t [facility] Medications Ordered Filled Start Stop Current Ordering Indication Dosage Frequency Signature Comments Components Source Medication Medication Date Date Medication? Clinician (SIG) Name Name Albuterol Albuterol 2019 Yes Idaz 2 puffs as Common Sulfate HFA Sulfate HFA 2-16 Martinez needed Spirit 00:00: - [facility] 00 [facility] Terazosin Terazosin Yes Diaz 1 capsule Common HCl HCl Martinez at bedtime [facility] Levothyroxi Levothyroxi Yes Diaz 1 tablet Common ne Sodium ne Sodium Martinez on an Spi rit empty - [facility] stomach in [facility] Tamsulosin Tamsulosin Yes Diaz 1 capsule Common HCl HCl Martinez [facility] Ramipril Ramipril Yes Diaz 1 capsule Common Martinez [facility] Pantoprazol Pantoprazol Yes Diaz 1 tablet Common e Sodium e Sodium Martinez [facility] Tab-A-Albert/ Tab-A-Albert/ Yes Diaz 1 tablet Common Iron Iron Martinez [facility] Omeprazole Omeprazole Yes Diaz 1 capsule Common Martinez [facility] Metformin Metformin Yes Diaz 1 tablet Common HCl HCl Martinez with a Spirit meal [facility] GlipiZIDE GlipiZIDE Yes Diaz 1 tablet Common XL XL Martinez with food [facility] Ramipril Ramipril Yes Diaz 1 capsule Common Martinez [facility] GlipiZIDE GlipiZIDE Yes Diaz 1 tablet Common XL XL Martinez with food [facility] Metformin Metformin Yes Diaz 1 tablet Common HCl HCl Martinez with a Spirit meal [facility] Omeprazole Omeprazole Yes Diaz TAKE 1 Common Martinez CAPSULE BY Spirit MOUTH - [facility] EVERY DAY [facility] Terazosin Terazosin Yes Diaz TAKE 1 C ommon HCl HCl Martinez CAPSULE BY [facility] MOUTH - [facility] TW[facility] BED[facility] Center Procedures This patient has no known procedures. Encounters Start End Encounter Admission Attending Care Care Encounter Source Date/Time Date/Time Type Type Clinicians Facility Department ID 2021-08-[address] [facility] [id number] Common 14:09:01 Diaz [facility] 2021-07-24 Inpatient Inocencio Garcia [facility] [id number] [facility] 08:45:00 [id number] [facility] 2021-07-19 Inpatient Inocencio Garcia [facility] [id number] [facility] 15:00:00 [id number] [facility] 2021-07-02 [facility] [id number] Common 11:29:00 Diaz [facility] 2021-05-31 Outpatient Martinez, STLMLC STLMLC [id number] Common 09:24:01 Diaz 28842 [facility] 2021-05-29 Outpatient Martinez, STLMLC STLMLC [id number] Common 14:27:43 Diaz 25148 [facility] 2021-05-29 Outpatient Martinez, STLMLC STLMLC [id number] Common 14:16:37 Diaz 98574 [facility] 2021-05-29 Outpatient Martinez, STLMLC STLMLC [id number] Common 14:14:16 Diaz 44150 [facility] 2021-05-29 Outpatient Martinez, STLMLC STLMLC [id number] Common 13:55:59 Diaz 88035 [facility] 2021-05-29 Outpatient Martinez, STLMLC STLMLC [id number] Common 13:17:39 Diaz 17464 [facility] 2021-05-29 Outpatient Martinez, STLMLC STLMLC [id number] Common 13:17:10 Diaz 68580 [facility] 2021-05-29 Outpatient Martinez, STLMLC STLMLC [id number] Common 12:42:19 Diaz 74107 [facility] 2021-05-29 Outpatient Martinez, STLMLC STLMLC [id number] Common 12:40:06 Diaz 28660 [facility] 2021-05-29 Outpatient Martinez, STLMLC STLMLC [id number] Common 12:16:45 Diaz [id number] [facility] 2021-05-29 Outpatient Martinez, STLMLC STLMLC [id number] Common 12:04:48 Diaz 68857 [facility] 2021-05-29 Outpatient Martinez, STLMLC STLMLC [id number] Common 11:16:20 Diaz 12028 [facility] 2021-05-29 Outpatient Martinez, STLMLC STLMLC [id number] Common 11:07:13 Diaz 32073 [facility] 2021-05-29 Outpatient Martinez, STLMLC STLMLC [id number] Common 11:02:23 [facility] 9[address]69 [facility] 2021-08-22 2021-08-22 ambulatory STLMLC STLMLC [id number] Common 00:00:00 00:00:00 [facility] 2021-08-19 2021-08-19 ambulatory STLMLC STLMLC [id number] Common 00:00:00 00:00:00 [facility] 2021-08-02 2021-08-02 ambulatory STLMLC STLMLC [id number] Common 00:00:00 00:00:00 [facility] 2021-08-02 2021-08-02 ambulatory STLMLC STLMLC [id number] Common 00:00:00 00:00:00 [facility] 2021-08-02 2021-08-02 ambulatory STLMLC STLMLC [id number] Common 00:00:00 00:00:00 [facility] 2021-07-02 2021-07-02 ambulatory STLMLC STLMLC [id number] Common 00:00:00 00:00:00 [facility] 2021-06-12 2021-06-12 ambulatory STLMLC STLMLC [id number] Common 00:00:00 00:00:00 [facility] 2021-06-11 2021-06-11 ambulatory STLMLC STLMLC [id number] Common 00:00:00 00:00:00 [facility] 2021-06-03 2021-06-03 ambulatory STLMLC STLMLC [id number] Common 00:00:00 00:00:00 [facility] 2021-05-30 2021-05-30 ambulatory STLMLC STLMLC [id number] Common 00:00:00 00:00:00 [facility] 2021-05-30 2021-05-30 ambulatory STLMLC STLMLC [id number] Common 00:00:00 00:00:00 [facility] 2021-03-25 2021-03-25 ambulatory STLMLC STLMLC [id number] Common 00:00:00 00:00:00 [facility] 2021-03-22 2021-03-22 ambulatory STLMLC STLMLC [id number] Common 00:00:00 00:00:00 [facility] 2021-03-08 2021-03-08 ambulatory STLMLC STLMLC [id number] Common 00:00:00 00:00:00 [facility] 2021-02-04 2021-02-04 Outpatient STLMLC STLMLC [id number] Common 00:00:00 00:00:00 [facility] 2021-02-04 2021-02-04 Outpatient STLMLC STLMLC [id number] Common 00:00:00 00:00:00 [facility] 2021-01-23 2021-01-23 Outpatient STLMLC STLMLC [id number] Common 00:00:00 00:00:00 [facility] 2021-01-18 2021-01-18 Outpatient STLMLC STLMLC [id number] Common 00:00:00 00:00:00 [facility] 2020-12-06 2020-12-06 Outpatient STLMLC STLMLC [id number] Common 00:00:00 00:00:00 [facility] 2020-11-13 2020-11-13 Outpatient STLMLC STLMLC [id number] Common 00:00:00 00:00:00 [facility] 2020-10-29 2020-10-29 Outpatient STLMLC STLMLC [id number] Common 00:00:00 00:00:00 [facility] 2020-10-29 2020-10-29 Outpatient STLMLC STLMLC [id number] Common 00:00:00 00:00:00 [facility] 2020-10-23 2020-10-23 Outpatient STLMLC STLMLC [id number] Common 00:00:00 00:00:00 [facility] 2020-10-22 2020-10-22 Outpatient STLMLC STLMLC [id number] Common 00:00:00 00:00:00 [facility] 2020-10-16 2020-10-16 Outpatient STLMLC STLMLC [id number] Common 00:00:00 00:00:00 [facility] 2020-10-15 2020-10-15 Outpatient STLMLC STLMLC [id number] Common 00:00:00 00:00:00 [facility] 2020-09-13 2020-09-13 Outpatient STLMLC STLMLC [id number] Common 00:00:00 00:00:00 [facility] 2020-08-07 2020-08-07 Outpatient STLMLC STLMLC [id number] Common 00:00:00 00:00:00 [facility] 2020-07-23 2020-07-23 Outpatient STLMLC STLMLC [id number] Common 00:00:00 00:00:00 [facility] 2020-07-17 2020-07-17 Outpatient STLMLC STLMLC [id number] Common 00:00:00 00:00:00 [facility] 2020-05-28 2020-05-28 Outpatient STLMLC STLMLC [id number] Common 00:00:00 00:00:00 [facility] 2020-05-16 2020-05-16 Outpatient STLMLC STLMLC [id number] Common 00:00:00 00:00:00 [facility] 2020-05-15 2020-05-15 Outpatient STLMLC STLMLC [id number] Common 00:00:00 00:00:00 [facility] 2020-05-09 2020-05-09 Outpatient STLMLC STLMLC [id number] Common 00:00:00 00:00:00 [facility] 2020-04-18 2020-04-18 Outpatient STLMLC STLMLC [id number] Common 00:00:00 00:00:00 [facility] 2020-04-12 2020-04-12 Outpatient STLMLC STLMLC [id number] Common 00:00:00 00:00:00 [facility] 2020-03-20 2020-03-20 Outpatient STLMLC STLMLC [id number] Common 00:00:00 00:00:00 [facility] 2020-03-15 2020-03-15 Outpatient STLMLC STLMLC [id number] Common 00:00:00 00:00:00 [facility] 2020-03-14 2020-03-14 Outpatient STLMLC STLMLC [id number] Common 00:00:00 00:00:00 [facility] 2020-02-27 2020-02-27 Outpatient STLMLC STLMLC [id number] Common 00:00:00 00:00:00 [facility] 2020-01-18 2020-01-18 [facility] [id number] Common 14:40:00 14:40:[address] [facility] 2020-01-11 2020-01-11 [facility] [id number] Common 15:38:00 15:38:[address] [facility] 2019-10-18 2019-10-18 [facility] [id number] Common 15:00:00 15:00:[address] [facility] 2019-09-29 2019-09-29 [facility] [id number] Common 08:15:00 08:15:00 [facility] [address] [facility] 2019-08-26 2019-08-26 [facility] [id number] Common 10:43:00 10:43:[address] [facility] 2019-07-06 2019-07-06 [facility] [id number] Common 14:45:00 14:45:[address] [facility] 2019-07-06 2019-07-06 [facility] [id number] Common 14:00:00 14:00:[address] [facility] 2019-04-18 2019-04-18 [facility] [id number] Common 11:56:00 11:56:[address] [facility] 2019-03-24 2019-03-24 [facility] [id number] Common 15:21:00 15:21:[address] [facility] 2019-03-24 2019-03-24 [facility] [id number] Common 15:11:00 15:11:[address] [facility] 2019-03-23 2019-03-23 [facility] [id number] Common 14:29:00 14:29:[address] [facility] 2019-03-22 2019-03-22 [facility] [id number] Common 16:20:00 16:20:[address] [facility] 2019-03-22 2019-03-22 [facility] [id number] Common 14:45:00 14:45:[address] [facility] 2019-03-17 2019-03-17 [facility] [id number] Common 14:00:00 14:00:00 t Specialty/U Sp silvia Specialty rology - [facility] 2019-03-17 2019-03-17 [facility] [id number] Common 08:44:00 08:44:[address] [facility] 2019-03-04 2019-03-04 [facility] [id number] Common 09:01:00 09:01:[address] [facility] 2019-02-21 2019-02-21 [facility] [id number] Common 14:30:00 14:30:[address] [facility] Results This patient has no known results.
[2021-10-02 20:18] LABS: Urine Blood 3+ (Negative); Urine Glucose Negative (Negative); Urine Protein 3+ (Negative); Urine Specific Gravity >=1.030 (1.005-1.030); Urine pH 5.5 (5.0-7.0)
[2021-10-02] MEDS ORDERED: ONDANSETRON 4 MG/2 ML VIAL ONE (20:25)
[2021-10-02 20:44] LABS: Absolute Lymphocytes (CBC) 0.3 K/uL (0.7-4.9); Hematocrit 38.6 % (39.6-49.0); Lymphocytes % 11.1 % (15.3-44.8); MPV 8.2 fL (7.6-11.3); RBC Red Blood Cell Count 4.31 M/uL (4.33-5.43)
[2021-10-02 20:55] LABS: Urine Bacteria <20 /HPF (NONE SEEN)
[2021-10-02 20:56] LABS: Urine Mucus 2+ /HPF (NONE SEEN)
[2021-10-02 21:02] LABS: Bilirubin Total 2.4 mg/dL (0.2-1.0)
[2021-10-02 21:03] LABS: Albumin 3.4 g/dL (3.4-5.0); Protein, Total 7.7 g/dL (6.4-8.2)
[2021-10-02] MEDS ORDERED: NA CHLORIDE 0.9% 100 ML ONE (22:44)
[2021-10-02] MEDS ORDERED: CLINDAMYCIN 600MG/D5W 600 MG/50 ML BAG IV ONE (22:44)
[2021-10-02] MEDS ORDERED: CEFTRIAXONE 1000 MG/VIAL ONE (22:44)
[2021-10-02] MEDS ORDERED: NA CHLORIDE 0.9% 1,000 ML ONE (23:20)
[2021-10-03] MEDS ORDERED: NA CHLORIDE 0.9% 1,000 ML ONE ×2 (00:57→03:43)
--- NOTE | 2021-10-03 01:41 | EDPHYS ---
Physician Documentation [facility] Name: Vasu Balderas Age: 71 yrs Sex: Male : 1950 Arrival Date: 10/02/2021 Time: 19:20 Bed 18 Private MD: ED Physician Luis Hatfield HPI: 10/02 22:00 This 71 yrs old Male presents to ER via Ambulatory with complaints of Vomiting, Fever. mh7 22:00 The patient presents to the emergency department with nausea, that is moderate, mh7 vomiting, that is intermittent, described as clear fluid, abdominal pain, of the right lower quadrant and left lower quadrant, described as intermittent, vague,\\E\\ waxing and waning, and does not radiate, right foot redness, pain, swelling. Onset: The symptoms/episode began/occurred yesterday. Possible causes: unknown. The symptoms are aggravated by nothing. The symptoms are alleviated by nothing. Associated signs and symptoms: Pertinent positives: fever, Pertinent negatives: anorexia, belching, constipation, diarrhea, dysuria, flatulence, GI bleeding, hematuria. Severity of symptoms: At their worst the symptoms were moderate last night, in the emergency department the symptoms are unchanged. Historical: - Allergies: 19:45 Sulfa (Sulfonamide Antibiotics); ld1 - PMHx: 19:45 Asthma; Cirrhosis; Diabetes - NIDDM; Diverticulitis; GERD; prostate problems; ld1 Sinusitis; Sleep Apnea; - PSHx: 19:45 Appendectomy; Tonsillectomy; ld1 - Immunization history:: Adult Immunizations up to date, Client reports receiving the 2nd dose of the Covid vaccine. - Social history:: Smoking status: Patient denies any tobacco usage or history of. Patient/guardian denies using alcohol. ROS: 22:00 Eyes: Negative for injury, pain, redness, and discharge, ENT: Negative for injury, mh7 pain, and discharge, Neck: Negative for injury, pain, and swelling, Cardiovascular: Negative for chest pain, palpitations, and edema, Respiratory: Negative for shortness of breath, cough, wheezing, and pleuritic chest pain, Back: Negative for injury and pain, : Negative for injury, bleeding, discharge, and swelling, Neuro: Negative for headache, weakness, numbness, tingling, and seizure, Psych: Negative for depression, anxiety, suicide ideation, homicidal ideation, and hallucinations, Allergy/Immunology: Negative for hives, rash, and allergies, Endocrine: Negative for neck swelling, polydipsia, polyuria, polyphagia, and marked weight changes, Hematologic/Lymphatic: Negative for swollen nodes, abnormal bleeding, and unusual bruising. Exam: 22:00 Head/Face: Normocephalic, atraumatic. Eyes: Pupils equal round and reactive to light, mh7 extra-ocular motions intact. Lids and lashes normal. Conjunctiva and sclera are non-icteric and not injected. Cornea within normal limits. Periorbital areas with no swelling, redness, or edema. Neck: Trachea midline, no thyromegaly or masses palpated, and no cervical lymphadenopathy. Supple, full range of motion without nuchal rigidity, or vertebral point tenderness. No Meningismus. Chest/axilla: Normal chest wall appearance and motion. Nontender with no deformity. No lesions are appreciated. 22:00 Respiratory: Lungs have equal breath sounds bilaterally, clear to auscultation and percussion. No rales, rhonchi or wheezes noted. No increased work of breathing, no retractions or nasal flaring. Back: No spinal tenderness. No costovertebral tenderness. Full range of motion. Neuro: Awake and alert, GCS 15, oriented to person, place, time, and situation. Cranial nerves II-XII grossly intact. Motor strength 5/5 in all extremities. Sensory grossly intact. Cerebellar exam normal. Normal gait. Psych: Awake, alert, with orientation to person, place and time. Behavior, mood, and affect are within normal limits. 22:00 Constitutional: The patient appears in no acute distress, alert, awake, uncomfortable. 22:00 Cardiovascular: Rate: tachycardic, Rhythm: regular, Pulses: no pulse deficits are appreciated, Heart sounds: normal, normal S1and S2, Edema: is not appreciated, JVD: is not appreciated. Vital Signs: 19:44 BP 135 / 63; Pulse 113; Resp 18; Temp 99.0(O); Pulse Ox 96% on R/A; Weight 105.69 kg; ld1 Height 6 ft. 0 in. (182.88 cm); Pain 6/10; 21:51 BP 106 / 50; Pulse 114; Resp 19; Temp 98.8; Pulse Ox 94% on R/A; lj 23:04 BP 113 / 49; Pulse 118; Resp 18; Temp 99.1; Pulse Ox 98% on R/A; lj 23:43 BP 115 / 42; Pulse 116; Resp 18; Temp 98.8; Pulse Ox 97% on R/A; lj 10/03 00:43 BP 120 / 48; Pulse 118; Resp 20; Temp 98.8; Pulse Ox 97% on R/A; lj 01:23 BP 106 / 55; Pulse 116; Resp 20; Pulse Ox 95% on R/A; lj 10/02 19:44 Body Mass Index 31.60 (105.69 kg, 182.88 cm) ld1 MDM: 01:37 Differential diagnosis: Nonspecific abd pain, appendicitis, diverticulitis, viral mh7 gastroenteritis. Data reviewed: vital signs, nurses notes, lab test result(s), CBC, electrolytes, Flu: negative urinalysis, EKG, radiologic studies, CT scan, plain films, ultrasound. Data interpreted: Pulse oximetry: on room air is 95 %. Interpretation: normal. Counseling: I had a detailed discussion with the patient and/or guardian regarding: the historical points, exam findings, and any diagnostic results supporting the discharge/admit diagnosis, lab results, radiology results, the need for further work-up and treatment in the hospital. Response to treatment: the patient's symptoms have mildly improved after treatment. 01:41 Patient medically screened. [facility] 10/02 19:42 Order name: COVID-19 SARS RT PCR (Document "Date of Onset" if Symptomatic); Complete ld1 Time: 20:50 10/02 19:42 Order name: Flu; Complete Time: 20:50 1 10/02 19:43 Order name: CBC with Diff; Complete Time: 20:50 [facility] 10/02 19:43 Order name: CMP; Complete Time: 22:20 [facility] 10/02 19:43 Order name: Lipase; Complete Time: 22:20 1 10/02 19:51 Order name: Urine Microscopic Only; Complete Time: 22:20 ld1 10/02 19:51 Order name: Urine Culture [facility] 10/02 20:19 Order name: Urine Dipstick-Ancillary; Complete Time: 20:50 [facility] 10/02 20:20 Order name: Urine Dipstick-Ancillary [facility] 10/02 22:21 Order name: Blood Culture Adult (2) [facility] 10/02 22:21 Order name: Lactate; Complete Time: 00:48 [facility] 10/03 03:25 Order name: Lactate Sepsis 2 HR Follow-up; Complete Time: 08:55 [facility] 10/03 07:31 Order name: Glucose, Ancillary Testing; Complete Time: 08:55 [facility] 10/03 11:42 Order name: Glucose, Ancillary Testing [facility] 10/02 19:43 Order name: IV Saline Lock; Complete Time: 20:22 [facility] 10/02 19:43 Order name: Labs collected and sent; Complete Time: 20:22 [facility] 10/02 19:51 Order name: Urine Dipstick-Ancillary (obtain specimen); Complete Time: 20:22 [facility] 10/02 22:21 Order name: US Extremity Venous Unilateral Ltd [facility] 10/02 22:21 Order name: Chest Single View XRAY [facility] 10/02 22:21 Order name: Foot Right 3 View XRAY [facility] 10/02 23:07 Order name: CT Abd/Pelvis - Without Contrast [facility] 10/02 23:18 Order name: EKG; Complete Time: 23:18 [facility] 10/02 23:18 Order name: EKG - Nurse/Tech; Complete Time: 23:23 [facility] Administered Medications: 10/02 20:22 Drug: Zofran (Ondansetron) 4 mg Route: IVP; Site: left antecubital; ld1 22:51 Drug: Rocephin (cefTRIAXone) 1 grams Route: IV; Rate: per protocol; Site: left lj antecubital; 23:39 Follow up: Response: No adverse reaction; IV Status: Completed infusion; IV Intake: lj 100ml 23:23 Drug: NS 0.9% 1000 ml Route: IV; Rate: 1000 ml; Site: left antecubital; 10/03 01:44 Follow up: IV Status: Completed infusion; IV Intake: 1000ml 10/02 23:40 Drug: Clindamycin 600 mg Route: IVPB; Infused Over: 30 mins; Site: left antecubital; 10/03 01:45 Follow up: Response: No adverse reaction; IV Status: Completed infusion lj 01:45 Follow up: Response: No adverse reaction; IV Status: Completed infusion lj 01:44 Drug: NS 0.9% 1000 ml Route: IV; Rate: 1000 ml; Site: left antecubital; lj Disposition Summary: 10/03/21 01:41 Hospitalization Ordered Hospitalization Status: Inpatient Admission [facility] Provider: Lisa Jeong Condition: Stable [facility] Problem: new mh7 Symptoms: have improved mh7 Bed/Room Type: Standard [facility] Location: Telemetry/MedSurg (Inpatient)(10/03/21 12:11) dw Room Assignment: [facility](10/03/21 12:11) Diagnosis - Pyelonephritis acute 7 - Cellulitis, Right Foot 7 - Sepsis, unspecified organism [facility] Forms: - Medication Reconciliation Form mh7 - SBAR form 7 Signatures: Dispatcher [employer] EDCheri Plata RN RN Laly Barr RN RN Viktor Sherwood, DIRECTOR OF CATERING SALES DIRECTOR OF CATERING SALES pm1 Luis Hatfield MD MD mh7 Dibbern, Lauren, RN RN ld1 Daphne Chi RN RN bo Brown, Sophia, PA PA sb3 Krista Lara, SINGER AND UNLOADER SINGER AND UNLOADER 7 Corrections: (The following items were deleted from the chart) 01:52 01:41 Telemetry/MedSurg (Inpatient) 7 cg 01:52 01:41 mh7 cg 12:11 01:52 [facility] dw 12:11 01:52 ERHOLD- cg dw
--- NOTE | 2021-10-03 01:41 | ER ---
Nurse's Notes [facility] Name: Vasu Balderas Age: 71 yrs Sex: Male : 1950 Arrival Date: 10/02/2021 Time: 19:20 Bed 18 Private MD: Diagnosis: Pyelonephritis acute;Cellulitis, Right Foot;Sepsis, unspecified organism Presentation: 10/02 19:44 Chief complaint: Patient states: N/V/ABD pain X 2 days. Right foot pain - swollen and ld1 painful (last time I needed a diuretic). Urine is extremely dark. Coronavirus screen: At this time, the client does not indicate any symptoms associated with coronavirus-19. Ebola Screen: No symptoms or risks identified at this time. Initial Sepsis Screen: Does the patient meet any 2 criteria? No. Patient's initial sepsis screen is negative. Does the patient have a suspected source of infection? No. Patient's initial sepsis screen is negative. Risk Assessment: Do you want to hurt yourself or someone else? Patient reports no desire to harm self or others. Onset of symptoms was October 02, 2021. 19:44 Method Of Arrival: Ambulatory ld1 19:44 Acuity: MABEL 3 ld1 Triage Assessment: 19:45 General: Appears in no apparent distress. comfortable, Behavior is calm, cooperative, ld1 appropriate for age. Pain: Complains of pain in right foot Pain does not radiate. Pain currently is 8 out of 10 on a pain scale. Quality of pain is described as throbbing. EENT: No signs and/or symptoms were reported regarding the EENT system. Neuro: Level of Consciousness is awake, alert, obeys commands, Oriented to person, place, time, situation, Appropriate for age. Cardiovascular: Capillary refill < 3 seconds Patient's skin is warm and dry. Respiratory: Airway is patent Respiratory effort is even, unlabored. GI: Abdomen is round non-distended, Reports lower abdominal pain, upper abdominal pain, nausea, vomiting. : Reports Dark urine. Historical: - Allergies: 19:45 Sulfa (Sulfonamide Antibiotics); ld1 - PMHx: 19:45 Asthma; Cirrhosis; Diabetes - NIDDM; Diverticulitis; GERD; prostate problems; ld1 Sinusitis; Sleep Apnea; - PSHx: 19:45 Appendectomy; Tonsillectomy; ld1 - Immunization history:: Adult Immunizations up to date, Client reports receiving the 2nd dose of the Covid vaccine. - Social history:: Smoking status: Patient denies any tobacco usage or history of. Patient/guardian denies using alcohol. Screenin:53 Abuse screen: Denies threats or abuse. Denies injuries from another. Nutritional lj screening: No deficits noted. Tuberculosis screening: No symptoms or risk factors identified. Fall Risk None identified. Assessment: 21:35 Reassessment: The pt was brought back via , with his , at this time. I have him jl still sitting in the , outside the room, as the housekeeper cleaning cooking just mopped and the floor is very wet. He is in NAD. 21:54 Reassessment: Patient appears in no apparent distress at this time. No changes from lj previously documented assessment. The pt was recv'd to the room \\T\\2145 and placed on the monitor. He reports that he had a fever yesterday, but not today and was found to be afebrile, as well. His left foot is swollen and he has a hx of the same, but oddly, reports that he was told that unilateral swelling may be CHF. The pt is obese, but is able to transfer from the to the bed, without assist. 21:57 Reassessment: It should be noted that swabs were sent, blood drawn and sent, as well lj as, urine, prior to coming to the room. The pt reports that they did not do an EKG. 23:04 Reassessment: US is at bedside performing the exam. lj 10/03 00:05 Reassessment: The additional labs were sent. The x-ray has been done. lj 00:17 Reassessment: The pt was taken to CT via . lj 00:40 Reassessment: It should be noted, the entry at 2154, states "left foot", but it is his lj right foot. 00:42 Reassessment: The pt's lactate is 5.2, as I read in the results section. is aware. lj 01:46 Reassessment: The pt is to be admitted and his is heading home. The pt is sleeping lj with clear, even breaths and he remains on the bedside monitor. Vital Signs: 10/02 19:44 BP 135 / 63; Pulse 113; Resp 18; Temp 99.0(O); Pulse Ox 96% on R/A; Weight 105.69 kg; ld1 Height 6 ft. 0 in. (182.88 cm); Pain 6/10; 21:51 BP 106 / 50; Pulse 114; Resp 19; Temp 98.8; Pulse Ox 94% on R/A; lj 23:04 BP 113 / 49; Pulse 118; Resp 18; Temp 99.1; Pulse Ox 98% on R/A; lj 23:43 BP 115 / 42; Pulse 116; Resp 18; Temp 98.8; Pulse Ox 97% on R/A; lj 10/03 00:43 BP 120 / 48; Pulse 118; Resp 20; Temp 98.8; Pulse Ox 97% on R/A; lj 01:23 BP 106 / 55; Pulse 116; Resp 20; Pulse Ox 95% on R/A; lj 10/02 19:44 Body Mass Index 31.60 (105.69 kg, 182.88 cm) ld1 ED Course: 10/02 19:20 Patient arrived in ED. ag3 19:45 Triage completed. ld1 19:45 Arm band placed on right wrist. ld1 19:50 COVID-19 SARS RT PCR (Document "Date of Onset" if Symptomatic) Sent. ld1 19:50 Flu Sent. ld1 20:22 Urine Microscopic Only Sent. ld1 20:22 Urine Culture Sent. ld1 20:22 COVID-19 SARS RT PCR (Document "Date of Onset" if Symptomatic) Sent. ld1 20:22 Flu Sent. ld1 20:22 Inserted saline lock: 20 gauge in left antecubital area, using aseptic technique. Blood ld1 collected. 20:49 Notified ED physician of a critical lab result(s). plat [id number]. tw5 21:35 Daphne Chi, ZI is Primary Nurse. lj 21:42 Luis Hatfield MD is Attending Physician. 7 21:53 Bed in low position. Call light in reach. Adult w/ patient. campus monitor on. Pulse lj ox on. NIBP on. Warm blanket given. 21:53 No provider procedures requiring assistance completed. lj 22:12 Client placed on continuous cardiac and pulse oximetry monitoring. NIBP monitoring wm applied. 22:12 EKG done, by ED staff, reviewed by Luis Hatfield MD. wm 22:33 Urine Culture Sent. lj 22:33 Urine Dipstick-Ancillary Sent. lj 23:21 US Extremity Venous Unilateral Ltd In Process Unspecified. EDMS 23:59 Chest Single View XRAY In Process Unspecified. EDMS 23:59 Foot Right 3 View XRAY In Process Unspecified. EDMS 0602 00:05 Blood Culture Adult (2) Sent. lj 00:05 Lactate Sent. lj 00:09 Blood Culture Adult (2) Sent. lj 00:34 CT Abd/Pelvis - Without Contrast In Process Unspecified. EDMS 01:38 Lisa Jeong MD is Hospitalizing Provider. mh7 01:47 Patient admitted, IV remains in place. lj Administered Medications: 10/02 20:22 Drug: Zofran (Ondansetron) 4 mg Route: IVP; Site: left antecubital; ld1 22:51 Drug: Rocephin (cefTRIAXone) 1 grams Route: IV; Rate: per protocol; Site: left lj antecubital; 23:39 Follow up: Response: No adverse reaction; IV Status: Completed infusion; IV Intake: lj 100ml 23:23 Drug: NS 0.9% 1000 ml Route: IV; Rate: 1000 ml; Site: left antecubital; lj 10/03 01:44 Follow up: IV Status: Completed infusion; IV Intake: 1000ml lj 10/02 23:40 Drug: Clindamycin 600 mg Route: IVPB; Infused Over: 30 mins; Site: left antecubital; lj 10/03 01:45 Follow up: Response: No adverse reaction; IV Status: Completed infusion lj 01:45 Follow up: Response: No adverse reaction; IV Status: Completed infusion lj 01:44 Drug: NS 0.9% 1000 ml Route: IV; Rate: 1000 ml; Site: left antecubital; lj Medication: 10/02 21:54 VIS not applicable for this client. lj Intake: 23:39 IV: 100ml; Total: 100ml. lj 10/03 01:44 IV: 1000ml; Total: 1100ml. lj Outcome: 10/02 21:53 Condition: stable lj 10/03 01:41 Decision to Hospitalize by Provider. mh7 01:47 Admitted to ER Hold. Please see [facility] for further documentation. lj 13:41 Patient left the ED. jd3 Signatures: Dispatcher [employer] Joe Barragan RN RN jd3 Kay Hernandez 3 Luis Hatfield MD MD mh7 Erica Serrano RN RN oral1 Blank Olivares Tiffany tw5 Daphne Chi RN RN lj
[2021-10-03] MEDS ORDERED: MORPHINE 2 MG/ML SYR IV PRN (02:23)
--- NOTE | 2021-10-03 02:23 | P.HP ---
Certification for Inpatient Patient admitted to: Inpatient With expected LOS: <2 Midnights Patient will require the following post-hospital care: None Practitioner: I am a practitioner with admitting privileges, knowledge of patient current condition, hospital course, and medical plan of care. Services: Services provided to patient in accordance with Admission requirements found in Title 42 Section 412.3 of the Code of Federal Regulations Patient History Date of Service: 10/03/21 Reason for admission: Pyelo, Sepsis, Cellulitus RLE History of Present Illness: Patient is a 71-year-old male with past medical history of liver cirrhosisdue to JORDAN, NIDDM, pancytopenia (on regular every 6 months PRBC and platelet transfusion) who presented to the ED with complaints of nausea, vomiting, and generalized abdominal pain for 2 days along with dark urine. He also reports swelling and pain to his right foot that began about 24 hours ago (he denies trauma). Work-up in the ED revealed WBC 3, hemoglobin 12.6, RBC 4, platelets 24, sodium 132, creatinine 1.48, BUN 21, lactic acid 5.2, urine positive for UTI. CT abdomen pelvis showed moderate perinephric stranding bilaterally suggesting pyelonephritis. Foot x-ray and venous ultrasound negative. Chest x- ray showed mildly prominent interstitial markings without consolidation. He was given Rocephin, clindamycin, and 2 L of fluid in the ED. upon my assessment, patient states that his pain has improved but is feeling nauseous. He is tachycardic. He reports that his baseline platelet count is around 30-50. Per chart review, last transfusion was 2 months ago and patient had a reaction requiring hospitalization. He sees Dr. Latif, will consult and admit patient for further evaluation and treatment. Allergies Sulfa (Sulfonamide Antibiotics) Allergy (Verified 07/23/21 07:42) Nausea/Vomiting Home Medications: Glipizide [Glipizide ER] 10 mg PO DAILY 03/13/14 Metformin HCl [Glucophage] 1,000 mg PO BID 03/13/14 Terazosin HCl [Hytrin] 10 mg PO BID 03/13/14 ramipriL [Altace*] 5 mg PO DAILY WITH BREAKFAST 03/13/14 Levothyroxine [Synthroid*] 50 mcg PO [id number] 08/23/19 Albuterol Sulfate [Proair Respiclick] 1 inh PO DAILY 07/23/21 Ferrous Sulfate [Iron] 1 tab PO DAILY 07/23/21 Fluticasone/Vilanterol [Breo Ellipta 200-25 Mcg INH] 1 inh PO DAILY 07/23/21 Omeprazole [Prilosec] 40 mg PO BID 07/23/21 - Past Medical/Surgical History Diabetic: Yes -: Diabetes mellitus type 2 [id number] -: Obstructive sleep apnea -: GERD with gastric varices -: Liver cirrhosis -: BPH -: Hypertension -: Pancytopenia -: Ankle surgery -: Appendectomy -: Tonsillectomy -: TURP Psychosocial/ Personal History: Patient lives at home. He has a girlfriend. - Family History Sister -: Diabetes - Social History Smoking Status: Never smoker Alcohol use: No CD- Drugs: No Caffeine use: No Place of Residence: Home Review of Systems General: Fever Gastrointestinal: Nausea, Vomiting, Abdominal Pain Musculoskeletal: Foot Pain Physical Examination - Physical Exam General: Alert, In no apparent distress HEENT: Atraumatic, PERRLA, EOMI, Sclerae nonicteric Neck: Supple, 2+ carotid pulse no bruit, No LAD, Without JVD or thyroid abnormality Respiratory: Clear to auscultation bilaterally, Normal air movement Cardiovascular: Regular rate/rhythm, Normal S1 S2 Gastrointestinal: Normal bowel sounds, No tenderness Musculoskeletal: No tenderness Integumentary: Tenderness/swelling, Warmth, Other (Cellulitis right foot and ankle, no abscess) Neurological: Normal gait, Normal speech, Normal strength at 5/5 x4 extr, Normal affect - Studies Laboratory Data (last 24 hrs) 10/02/21 20:21: Sodium 132 L, Potassium 4.0, BUN 21 H, Creatinine 1.48 H, Glucose 185 H, Total Bilirubin 2.4 H, AST 24, ALT 25, Alkaline Phosphatase 63, Lipase 108 10/02/21 20:21: WBC 3.0 L, Hgb 12.6 L, Hct 38.6 L, Plt Count 24 L* Microbiology Data (last 24 hrs): 10/02/21 19:48 Nasopharnyx Influenza Type A Antigen Screen - Final 10/02/21 19:48 Nasopharnyx Influenza Type B Antigen Screen - Final Assessment and Plan - Problems (Diagnosis) (1) Pancytopenia Current Visit: Yes Status: Chronic (2) Pyelonephritis Current Visit: Yes Status: Acute (3) Cellulitis of foot without toes, right Current Visit: Yes Status: Acute (4) Sepsis Current Visit: Yes Status: Acute Qualifiers: Sepsis type: sepsis due to unspecified organism Sepsis acute organ dysfunction status: without acute organ dysfunction Qualified Code(s): A41.9 - Sepsis, unspecified organism (5) Cirrhosis Current Visit: No Status: Chronic Qualifiers: Hepatic cirrhosis type: unspecified hepatic cirrhosis Ascites presence: without ascites Qualified Code(s): K74.60 - Unspecified cirrhosis of liver (6) Type 2 diabetes mellitus Current Visit: Yes Status: Chronic Qualifiers: 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 2 hour repeat pending. Patient is tachycardic and states he had a fever of 103F at home but is 99F here. Given 2L fluid in ED. Cont IVF. Blood cultures drawn. Pyelonephritis: Continue rocephin and IVF. Morphine PRN pain Cellulitus RLE: Continue clindamycin. US negative for DVT. Xray negative for osteomyelitis. Pancytopenia: Patient requires PRBC and platelet transfusion every 6 months, managed by Dr. Latif. Last transfusion 2 months ago was stopped prematurely because of transfusion reaction. Lowest recorded platelet count of [address] Latif for further recommendation Type 2 Diabetes: ACHS accu checks with mild sliding scale insulin and diabetic diet VTE ppx: SCDs Full Code Discharge Plan: Home Plan to discharge in: 48 Hours - Advance Directives Does patient have a Living Will: Yes Does patient have a Durable POA for Healthcare: Yes - Code Status/Comfort Care Code Status Assessed: Yes (Full) Critical Care: No Time Spent Managing Pts Care (In Minutes): 70
[2021-10-03 02:51] VITALS: BMI 30.2
[2021-10-03] MEDS: NA CHLORIDE 0.9% 1,000 ML IV SCH ×2 (03:40→17:49)
[2021-10-03] MEDS: INSULIN -REGULAR HUMAN 50 UNIT/0.5 ML ML SQ SCH ×4 (07:20→20:44)
[2021-10-03] MEDS ORDERED: CEFTRIAXONE 1000 MG/VIAL ONE (08:33)
[2021-10-03] MEDS ORDERED: NA CHLORIDE 0.9% 50 ML ONE (08:33)
[2021-10-03] MEDS: CEFTRIAXONE 1,000 MG in NA CHLORIDE 0.9% 50 ML IVPB SCH (08:38)
[2021-10-03] MEDS: CLINDAMYCIN INJ 600 MG in NA CHLORIDE 0.9% 50 ML IV SCH ×2 (09:18→17:50)
--- NOTE | 2021-10-03 12:12 | RAD REPORT ---
EXAM DESCRIPTION: RAD - Foot Right 3 View - 10/02/2021 11:57 pm CLINICAL HISTORY: 71 years Male, Pain COMPARISON: None. FINDINGS: No evidence of acute fracture. No dislocation. Hallux valgus demonstrated. There are erosi ve changes involving the medial base of the first proximal phalanx. Subcortical cystic change within the medial head of the first metatarsal noted. Surrounding soft tissues are unremarkable. IMPRESSION: 1. No evidence of an acute fracture of the right foot. 2. Hallux valgus. Erosive changes involving the medial base of the first proximal phalanx. Electronically signed by: Danie Brooks MD 10/03/2021 12:13 AM CDT Due to temporary technical issues with the PACS/Fluency reporting system, reports are being signed by the in house radiologist without review as a courtesy to ensure prompt reporting. The interpreting r adiologist is fully responsible for the content of the report.
--- NOTE | 2021-10-03 12:15 | RAD REPORT ---
EXAM DESCRIPTION: RAD - Chest Single View - 10/02/2021 11:57 pm CLINICAL HISTORY: The patient is 71 years old and is Male; FEVER TECHNIQUE: Frontal view of the chest. COMPARISON: No relevant prior studies available. FINDINGS: Lungs: Mildly prominent interstitial markings. No consolidation. Pleural space: Unremarkable. No pneumothorax. Heart: Unremarkable. Mediastinum: Unremarkable. Bones/joints: Unremarkable. IMPRESSION: Mildly prominent interstitial markings. No consolidation. Electronically signed by: Chi Brice MD 10/03/2021 12:07 AM CDT Due to temporary technical issues with the PACS/Fluency reporting system, reports are being signed by the in house radiologist without review as a courtesy to ensure prompt reporting. The interpreting r adiologist is fully responsible for the content of the report.
--- NOTE | 2021-10-03 12:18 | RAD REPORT ---
EXAM DESCRIPTION: US - Extremity Venous Uni Ltd - 10/02/2021 11:57 pm CLINICAL HISTORY: Pain. COMPARISON: None. TECHNIQUE: Survey ultrasound imaging of the deep venous system of the right lower extremity was perf ormed including color and spectral Doppler evaluation with sales representative graphic art images obtained. Segmental venous compression and calf vein augmentation were performed. FINDINGS: Common femoral vein: Patent without thrombus. Normal respiratory phasicity is indirect e vidence of central patency. Cephalad greater saphenous vein: Patent without thrombus. Femoral vein: Patent without thrombus. Popliteal vein: Patent without thrombus. Normal response to augmentation. Calf veins: Patent without thrombus. IMPRESSION: Negative for right lower extremity deep venous thrombosis. Electronically signed by: Donna Mccormick MD 10/02/2021 11:35 PM CDT Due to temporary technical issues with the PACS/Fluency reporting system, reports are being signed by the in house radiologist without review as a courtesy to ensure prompt reporting. The interpreting r adiologist is fully responsible for the content of the report.
--- NOTE | 2021-10-03 12:34 | RAD REPORT ---
EXAM DESCRIPTION: CT - Abdomen Pelvis Wo Contrast - 10/03/2021 6:39 am CLINICAL HISTORY: 71 years Male Abdominal pain, acute, nonlocalized COMPARISON: None TECHNIQUE: Images were obtained in axial, sagittal, and coronal planes. Intravenous contrast was adm inistered. This exam was performed according to our departmental dose-optimization program which includes use of Automated Exposure Control, adjustment of the mA and/or kV according to patient size and/or use of i terative reconstruction technique. FINDINGS: Mildly nodular hepatic contour indicating cirrhotic change. Spleen is enlarged measuring 2 3 cm in anterior posterior dimension. Varices epigastric region, portal region, left upper abdomen, l eft retroperitoneum and left inguinal region. Recanalization umbilical vein. Unremarkable pancreas, g allbladder, and adrenal glands bilaterally. No obstructing renal or ureteral calculi bilaterally. No hydronephrosis bilaterally. Unremarkable jose alejandro dder. Moderate perinephric stranding bilaterally. Mildly enlarged prostate gland. Appendix not well identified however no secondary signs for appendicitis. No bowel obstruction, perfo ration, or inflammation. Calcification abdominal aorta with no dilatation seen. No abnormal fluid collections seen. Evaluation for adenopathy limited in the absence of intravenous contrast. Small periumbilical hernia which cont ains mesenteric fat and likely vascular structure. No abnormalities lower lungs bilaterally. No acute osseous abnormality. IMPRESSION: Cirrhotic change involving the liver. Marked splenomegaly. Extensive varices. No ascites . Moderate perinephric stranding bilaterally possibly inflammatory change. Electronically signed by: Alba Geller MD 10/03/2021 12:53 AM CDT Due to temporary technical issues with the PACS/Fluency reporting system, reports are being signed by the in house radiologist without review as a courtesy to ensure prompt reporting. The interpreting r adiologist is fully responsible for the content of the report.
--- NOTE | 2021-10-03 13:44 | P.PN ---
Date of Service: 10/03/21 Patient seen and examined. He is complaining of nausea and vomiting. No recorded fever. Diagnosis: UTI Cellulitis Sepsis Pancytopenia with thrombocytopenia and leukopenia. Acute renal failure Plan: High risk for immunosuppression Aggressive antibiotics-currently on IV Rocephin and clindamycin. We will monitor for response to antibiotics. Supportive measures-pain management as needed, antiemetics. Follow blood cultures and urine culture. Monitor CBC to follow leukopenia and thrombocytopenia. IV hydration and monitor renal function.
--- NOTE | 2021-10-03 13:45 | EKG ---
Test Date: 2021-10-02 Test Time: 22:04:50 Contact Centre Supervisor: MEASUREMENT RESULTS: Intervals: Rate: 115 CT: 142 QRSD: 130 QT: 372 QTc: 514 [place]: P: 74 CT: 142 QRS: 230 T: 59 INTERPRETIVE STATEMENTS: Sinus tachycardia Right bundle branch block Abnormal ECG Compared to ECG 08/01/2021 13:18:48 No significant changes Electronically Signed On 10-03-21 13:44:37 CDT by Nadeem Mojica
--- NOTE | 2021-10-03 13:45 | EKG ---
Test Date: 2021-10-02 Test Time: 22:05:26 Eyelet Riveter: MEASUREMENT RESULTS: Intervals: Rate: 116 UT: 142 QRSD: 128 QT: 372 QTc: 517 [place]: P: 74 UT: 142 QRS: 227 T: 61 INTERPRETIVE STATEMENTS: Sinus tachycardia Right bundle branch block Abnormal ECG Electronically Signed On 10-03-21 13:44:31 CDT by Nadeem Mojica
[2021-10-03] MEDS: ONDANSETRON 4 MG/2 ML VIAL IV PRN (17:19)
[2021-10-03] MEDS ORDERED: ALBUTEROL 2.5 MG/3 ML NEB SOL NEB PRN (20:27)
[2021-10-03] MEDS: TERAZOSIN HCL 5 MG CAP PO SCH (20:49)
[2021-10-03] MEDS: METFORMIN HCL 500 MG TAB PO SCH (20:57)
[2021-10-04] MEDS: CLINDAMYCIN INJ 600 MG in NA CHLORIDE 0.9% 50 ML IV SCH ×2 (00:34→08:49)
[2021-10-04 04:14] LABS: Absolute Lymphocytes (CBC) 0.4 K/uL (0.7-4.9); Hematocrit 30.1 % (39.6-49.0); Lymphocytes % 17.8 % (15.3-44.8); MPV 7.8 fL (7.6-11.3); RBC Red Blood Cell Count 3.39 M/uL (4.33-5.43)
[2021-10-04 04:37] LABS: Albumin 2.6 g/dL (3.4-5.0); Phosphorus 2.1 mg/dL (2.5-4.9); Potassium 3.6 mmol/L (3.5-5.1); Protein, Total 6.3 g/dL (6.4-8.2)
[2021-10-04 04:39] LABS: Magnesium 1.3 mg/dL (1.8-2.4)
[2021-10-04] MEDS ORDERED: Magnesium Sulfate 2gm IVPB 2 G/50 ML BAG IV ONE (04:51)
[2021-10-04] MEDS: NA CHLORIDE 0.9% 1,000 ML IV SCH ×2 (05:02→16:59)
[2021-10-04] MEDS: LEVOTHYROXINE SOD 0.05 MG TABLET PO SCH (05:04)
[2021-10-04] MEDS: PANTOPRAZOLE 40MG TABLET PO SCH (05:30)
[2021-10-04] MEDS: INSULIN -REGULAR HUMAN 50 UNIT/0.5 ML ML SQ SCH ×4 (07:30→20:38)
[2021-10-04] MEDS ORDERED: GLIPIZIDE S.A. 5 MG TAB PO SCH (08:00)
[2021-10-04] MEDS: METFORMIN HCL 500 MG TAB PO SCH ×2 (08:50→20:38)
[2021-10-04] MEDS: CEFTRIAXONE 1,000 MG in NA CHLORIDE 0.9% 50 ML IVPB SCH (08:50)
[2021-10-04] MEDS: ACETAMINOPHEN 500 MG TAB PO PRN (08:53)
[2021-10-04] MEDS: TERAZOSIN HCL 5 MG CAP PO SCH ×2 (08:56→20:38)
--- NOTE | 2021-10-04 11:44 | P.PN ---
Subjective Date of Service: 10/04/21 Chief Complaint: Pyelo, Sepsis, Cellulitus RLE Patient complaining of persistent pain in the left foot and leg. The foot is still significantly swollen and tender. The erythema has improved 2 out of 4 blood culture bottles, 1 from each set growing gram-positive cocci. Patient has been afebrile. Physical Examination - Vital Signs Temperature: 98.4 F Blood Pressure: 119/70 Pulse: 90 Respirations: 20 Pulse Ox (%): 97 - Physical Exam General: Alert, In no apparent distress, Oriented x3 HEENT: Mucous membr. moist/pink Neck: Supple, JVD not distended Respiratory: Clear to auscultation bilaterally, Normal air movement Cardiovascular: Regular rate/rhythm, Normal S1 S2 Gastrointestinal: Normal bowel sounds, Soft and benign, Non-distended Musculoskeletal: Swelling (Right foot and leg), Tenderness (Right foot) Integumentary: Erythema (Right foot) Neurological: Normal strength at 5/5 x4 extr, Cranial nerves 3-12 intact Assessment And Plan - Current Problems (Diagnosis) (1) Cellulitis of foot without toes, right Current Visit: Yes Status: Acute (2) Sepsis Current Visit: Yes Status: Acute Qualifiers: Sepsis type: sepsis due to unspecified organism Sepsis acute organ dysfunction status: without acute organ dysfunction Qualified Code(s): A41.9 - Sepsis, unspecified organism (3) Pancytopenia Current Visit: Yes Status: Chronic (4) Type 2 diabetes mellitus Current Visit: Yes Status: Chronic Qualifiers: 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 Discontinue clindamycin. Keep right lower extremity elevated. Pain management as needed. Repeat blood cultures. PICC line for outpatient IV antibiotics. Consult infectious disease. Diet as tolerated Pain management. Insulin sliding scale for glucose management. Hold glipizide. Resume metformin today.
[2021-10-04] MEDS: Levofloxacin 750mg IV 750 MG/150 ML BAG IV SCH (12:58)
[2021-10-04] MEDS ORDERED: VANCOMYCIN 2.5 GM in NA CHLORIDE 0.9% 500 ML IVPB ONE (13:00)
[2021-10-04] MEDS: HYDROCODONE/APAP 5/325 MG TAB PO PRN (20:37)
[2021-10-05] MEDS: NA CHLORIDE 0.9% 1,000 ML IV SCH ×2 (05:47→21:40)
[2021-10-05] MEDS: ACETAMINOPHEN 500 MG TAB PO PRN ×3 (05:50→21:19)
[2021-10-05] MEDS: LEVOTHYROXINE SOD 0.05 MG TABLET PO SCH (05:50)
[2021-10-05] MEDS: PANTOPRAZOLE 40MG TABLET PO SCH (05:50)
[2021-10-05 06:13] LABS: Absolute Lymphocytes (CBC) 0.3 K/uL (0.7-4.9); Hematocrit 30.2 % (39.6-49.0); Lymphocytes % 21.9 % (15.3-44.8); MPV 8.3 fL (7.6-11.3); RBC Red Blood Cell Count 3.41 M/uL (4.33-5.43)
[2021-10-05 06:28] LABS: Albumin 2.5 g/dL (3.4-5.0); Bilirubin Total 0.9 mg/dL (0.2-1.0); Potassium 3.9 mmol/L (3.5-5.1); Protein, Total 6.3 g/dL (6.4-8.2)
[2021-10-05] MEDS: INSULIN -REGULAR HUMAN 50 UNIT/0.5 ML ML SQ SCH ×4 (07:30→21:14)
[2021-10-05] MEDS: TERAZOSIN HCL 5 MG CAP PO SCH ×2 (08:18→21:14)
[2021-10-05] MEDS: METFORMIN HCL 500 MG TAB PO SCH (08:19)
[2021-10-05] MEDS: Levofloxacin 750mg IV 750 MG/150 ML BAG IV SCH (12:18)
--- NOTE | 2021-10-05 12:59 | P.PN ---
Subjective Date of Service: 10/05/21 Chief Complaint: Pyelo, Sepsis, Cellulitus RLE Patient complaining of persistent pain and swelling in the left foot and leg. He is also complaining of abdominal distention. He reports melena. 2 out of 4 blood culture bottles, 1 from each set growing coagulase-negative staph. Patient has been afebrile. He stated he is eating better today. Physical Examination - Vital Signs Temperature: 98.4 F Blood Pressure: 146/71 Pulse: 93 Respirations: 16 Pulse Ox (%): 97 - Physical Exam General: Alert, In no apparent distress, Oriented x3 HEENT: Mucous membr. moist/pink Neck: Supple, JVD not distended Respiratory: Clear to auscultation bilaterally, Normal air movement Cardiovascular: Regular rate/rhythm, Normal S1 S2, Edema (Right leg) Gastrointestinal: Normal bowel sounds, No tenderness, Distended Musculoskeletal: Swelling (Right leg) Integumentary: Erythema (Right foot) Neurological: Normal strength at 5/5 x4 extr - Studies Microbiology Data (last 24 hrs): 10/02/21 20:15 Clean Catch Urine [place] Count - Final BETWEEN 10,000 & 100,000 CFU/ML 10/02/21 20:15 Clean Catch Urine - Final MIXED ZACHARY. 10/02/21 23:30 Blood - Blood Blood Culture Gram Stain - Final 10/02/21 23:30 Blood - Blood Gram Stain - Final Assessment And Plan - Current Problems (Diagnosis) (1) Cellulitis of foot without toes, right Current Visit: Yes Status: Acute (2) Sepsis Current Visit: Yes Status: Acute Qualifiers: Sepsis type: sepsis due to unspecified organism Sepsis acute organ dysfunction status: without acute organ dysfunction Qualified Code(s): A41.9 - Sepsis, unspecified organism (3) Pancytopenia Current Visit: Yes Status: Chronic (4) Type 2 diabetes mellitus Current Visit: Yes Status: Chronic Qualifiers: Diabetes mellitus resizer operator insulin use: without resizer operator use Diabetes mellitus complication status: with kidney complications Diabetes mellitus complication detail: with chronic kidney disease Chronic kidney disease stage 3 subtype: stage 3a (GFR 45-59) (5) Pyelonephritis Current Visit: Yes Status: Acute - Plan Repeat blood culture shows no growth. Coagulase-negative staph could be a skin contaminant but patient has neutropenia and therefore likely immunosuppressed making staph bacteremia and high possibility. Continue IV Rocephin to vancomycin and add IV Levaquin. Infectious disease consulted Keep right lower extremity elevated. Pain management as needed. PICC line for outpatient IV antibiotics contraindicated given significant thrombocytopenia. I suspect patient now has ascites. He also has melena. History of gastric varices. Hemoglobin has been stable since yesterday. Continue to monitor. Start nadolol/propranolol for portal hypertension IV Protonix. IV Lasix and Aldactone for ascites. Diet as tolerated Pain management. Insulin sliding scale for glucose management. Hold glipizide. Hold metformin.
[2021-10-05] MEDS ORDERED: SODIUM CHLORIDE 0.9% 10ML INJ IV PRN (13:03)
[2021-10-05] MEDS: VANCOMYCIN 1.75 GM in NA CHLORIDE 0.9% 500 ML IVPB SCH (14:12)
[2021-10-05] MEDS: FUROSEMIDE 40 MG/4 ML VIAL IV SCH (16:53)
[2021-10-05] MEDS: PANTOPRAZOLE 40 MG INJ IVP SCH (21:14)
[2021-10-05] MEDS ORDERED: VANCOMYCIN 500 MG/VIAL ONE (21:43)
[2021-10-05] MEDS ORDERED: VANCOMYCIN 1 GM/VIAL ONE (21:43)
[2021-10-05] MEDS ORDERED: NA CHLORIDE 0.9% 0 ML ONE (21:43)
[2021-10-06 04:01] LABS: Absolute Lymphocytes (CBC) 0.3 K/uL (0.7-4.9); Hematocrit 28.2 % (39.6-49.0); Lymphocytes % 27.4 % (15.3-44.8); MPV 8.5 fL (7.6-11.3); RBC Red Blood Cell Count 3.22 M/uL (4.33-5.43)
[2021-10-06 04:13] LABS: Albumin 2.6 g/dL (3.4-5.0); Potassium 3.6 mmol/L (3.5-5.1); Protein, Total 6.3 g/dL (6.4-8.2)
[2021-10-06 04:54] LABS: Blood Morphology Comment NOT SEEN (NOT SEEN); Platelet Estimate DECR
[2021-10-06] MEDS: LEVOTHYROXINE SOD 0.05 MG TABLET PO SCH (05:54)
[2021-10-06] MEDS: INSULIN -REGULAR HUMAN 50 UNIT/0.5 ML ML SQ SCH ×4 (07:30→20:09)
[2021-10-06] MEDS: ACETAMINOPHEN 500 MG TAB PO PRN ×2 (08:16→21:52)
[2021-10-06] MEDS: TERAZOSIN HCL 5 MG CAP PO SCH ×2 (08:16→20:09)
[2021-10-06] MEDS: SPIRONOLACTONE 25 MG TABLET PO SCH (08:17)
[2021-10-06] MEDS: PANTOPRAZOLE 40 MG INJ IVP SCH ×2 (08:17→20:09)
[2021-10-06] MEDS: FUROSEMIDE 40 MG/4 ML VIAL IV SCH ×2 (08:17→17:14)
[2021-10-06] MEDS: nadoloL 40 MG TAB PO SCH (08:28)
[2021-10-06] MEDS: Levofloxacin 750mg IV 750 MG/150 ML BAG IV SCH (11:58)
--- NOTE | 2021-10-06 13:28 | P.PN ---
Subjective Date of Service: 10/06/21 Chief Complaint: Pyelo, Sepsis, Cellulitus RLE Patient complaining of persistent pain and swelling in the left foot and leg. No major change in the foot from yesterday. His abdominal distention is better. No melena today. Physical Examination - Vital Signs Temperature: 98 F Blood Pressure: 125/57 Pulse: 73 Respirations: 20 Pulse Ox (%): 97 - Physical Exam General: Alert, In no apparent distress, Oriented x3 HEENT: Mucous membr. moist/pink Neck: Supple, JVD not distended Respiratory: Clear to auscultation bilaterally, Normal air movement Cardiovascular: Regular rate/rhythm, Normal S1 S2, Edema (Right leg) Gastrointestinal: Normal bowel sounds, Soft and benign, Distended Musculoskeletal: Swelling (Right leg and foot) Integumentary: Erythema (Right ankle) Neurological: Normal strength at 5/5 x4 extr Assessment And Plan - Current Problems (Diagnosis) (1) Cellulitis of foot without toes, right Current Visit: Yes Status: Acute (2) Sepsis Current Visit: Yes Status: Acute Qualifiers: Sepsis type: sepsis due to unspecified organism Sepsis acute organ dysfunction status: without acute organ dysfunction Qualified Code(s): A41.9 - Sepsis, unspecified organism (3) Pancytopenia Current Visit: Yes Status: Chronic (4) Type 2 diabetes mellitus Current Visit: Yes Status: Chronic Qualifiers: Diabetes mellitus senior care insulin use: without senior care use Diabetes mellitus complication status: with kidney complications Diabetes mellitus complication detail: with chronic kidney disease Chronic kidney disease stage 3 subtype: stage 3a (GFR 45-59) (5) Pyelonephritis Current Visit: Yes Status: Acute - Plan Repeat blood culture shows no growth. Coagulase-negative staph could be a skin contaminant but patient has neutropenia and therefore likely immunosuppressed making staph bacteremia a high possibility. IV Levaquin and vancomycin Infectious disease consulted Keep right lower extremity elevated. Pain management as needed. PICC line for outpatient IV antibiotics contraindicated given significant thrombocytopenia. Ascites improving with IV Lasix and Aldactone. Not much improvement in right lower extremity edema. He also has melena. History of gastric varices. Hemoglobin has been stable since yesterday. Continue to monitor. Continue nadolol/propranolol for portal hypertension IV Protonix. Continue IV Lasix and Aldactone for ascites. Diet as tolerated Pain management. Insulin sliding scale for glucose management. Metformin and glipizide on hold.
[2021-10-06] MEDS: VANCOMYCIN 1.75 GM in NA CHLORIDE 0.9% 500 ML IVPB SCH (13:40)
[2021-10-06 17:30] LABS: Hematocrit 30.6 % (39.6-49.0)
[2021-10-07 05:51] LABS: Absolute Lymphocytes (CBC) 0.4 K/uL (0.7-4.9); Hematocrit 29.1 % (39.6-49.0); Lymphocytes % 23.7 % (15.3-44.8); MPV 8.5 fL (7.6-11.3); RBC Red Blood Cell Count 3.36 M/uL (4.33-5.43)
[2021-10-07] MEDS: LEVOTHYROXINE SOD 0.05 MG TABLET PO SCH (05:55)
[2021-10-07 06:03] LABS: Potassium 3.5 mmol/L (3.5-5.1)
[2021-10-07] MEDS: HYDROCODONE/APAP 5/325 MG TAB PO PRN (06:26)
[2021-10-07] MEDS: INSULIN -REGULAR HUMAN 50 UNIT/0.5 ML ML SQ SCH ×4 (07:30→21:48)
[2021-10-07] MEDS: nadoloL 40 MG TAB PO SCH (08:59)
[2021-10-07] MEDS: SPIRONOLACTONE 25 MG TABLET PO SCH (09:01)
[2021-10-07] MEDS: TERAZOSIN HCL 5 MG CAP PO SCH ×2 (09:01→21:47)
[2021-10-07] MEDS: FUROSEMIDE 40 MG/4 ML VIAL IV SCH ×2 (09:02→17:50)
[2021-10-07] MEDS: PANTOPRAZOLE 40 MG INJ IVP SCH ×2 (09:03→21:47)
[2021-10-07] MEDS: ACETAMINOPHEN 500 MG TAB PO PRN ×2 (12:16→23:10)
[2021-10-07] MEDS: Levofloxacin 750mg IV 750 MG/150 ML BAG IV SCH (12:19)
[2021-10-07] MEDS: VANCOMYCIN 1.75 GM in NA CHLORIDE 0.9% 500 ML IVPB SCH (13:40)
--- NOTE | 2021-10-07 16:35 | P.PN ---
Subjective Date of Service: 10/07/21 Chief Complaint: Pyelo, Sepsis, Cellulitus RLE Patient states his abdominal distention is better but no change in the right foot swelling or erythema. He denies melena. He is tolerating food. Physical Examination - Vital Signs Temperature: 97.1 F Blood Pressure: 133/66 Pulse: 72 Respirations: 18 Pulse Ox (%): 98 - Physical Exam General: Alert, In no apparent distress, Obese HEENT: Sclerae nonicteric Neck: Supple, JVD not distended Respiratory: Clear to auscultation bilaterally, Normal air movement Cardiovascular: Regular rate/rhythm, Normal S1 S2, Edema (More edema on the right.) Gastrointestinal: Normal bowel sounds, Soft and benign, No tenderness, Distended Musculoskeletal: Swelling (Right leg) Integumentary: Erythema (Right foot and ankle) Neurological: Normal strength at 5/5 x4 extr - Studies Microbiology Data (last 24 hrs): 10/02/21 23:45 Blood - Blood Aerobic Blood Culture - Final Staph Epidermidis 10/02/21 23:45 Blood - Blood Blood Culture Gram Stain - Final 10/02/21 23:45 Blood - Blood Anaerobic Blood Culture - Final Staph Epidermidis 10/02/21 23:45 Blood - Blood Gram Stain - Final 10/02/21 23:30 Blood - Blood Aerobic Blood Culture - Final Staphylococcus Capitis 10/02/21 23:30 Blood - Blood Blood Culture Gram Stain - Final 10/02/21 23:30 Blood - Blood Anaerobic Blood Culture - Final Staphylococcus Capitis 10/02/21 23:30 Blood - Blood Gram Stain - Final Assessment And Plan - Current Problems (Diagnosis) (1) Cellulitis of foot without toes, right Current Visit: Yes Status: Acute (2) Sepsis Current Visit: Yes Status: Acute Qualifiers: Sepsis type: sepsis due to unspecified organism Sepsis acute organ dysfunction status: without acute organ dysfunction Qualified Code(s): A41.9 - Sepsis, unspecified organism (3) Pancytopenia Current Visit: Yes Status: Chronic (4) Type 2 diabetes mellitus Current Visit: Yes Status: Chronic Qualifiers: Diabetes mellitus intermission coordinator insulin use: without senior care use Diabetes mellitus complication status: with kidney complications Diabetes mellitus complication detail: with chronic kidney disease Chronic kidney disease stage 3 subtype: stage 3a (GFR 45-59) (5) Pyelonephritis Current Visit: Yes Status: Acute - Plan Repeat blood culture shows no growth. Staph capitis and staph epidermidis could be a skin contaminant but patient has neutropenia and therefore likely immunosuppressed making staph bacteremia a high possibility. No significant response of cellulitis to antibiotics. Continue vancomycin. Change IV Levaquin to IV Rocephin Infectious disease consulted Keep right lower extremity elevated. Pain management as needed. PICC line for outpatient IV antibiotics contraindicated given significant thrombocytopenia. Ascites improving with IV Lasix and Aldactone. Not much improvement in right lower extremity edema. He also has melena. History of gastric varices. Hemoglobin has been stable since yesterday. Continue to monitor. Continue nadolol/propranolol for portal hypertension IV Protonix. Continue IV Lasix and Aldactone for ascites. Diet as tolerated Pain management. Insulin sliding scale for glucose management. Metformin and glipizide on hold. Outpatient antibiotics recommendation per infectious disease.
[2021-10-08] MEDS: LEVOTHYROXINE SOD 0.05 MG TABLET PO SCH (05:08)
[2021-10-08 06:08] LABS: Absolute Lymphocytes (CBC) 0.4 K/uL (0.7-4.9); Hematocrit 31.9 % (39.6-49.0); Lymphocytes % 21.1 % (15.3-44.8); MPV 8.1 fL (7.6-11.3); RBC Red Blood Cell Count 3.67 M/uL (4.33-5.43)
--- NOTE | 2021-10-08 06:19 | P.PN ---
Date of Service: 10/08/21 Subjective: feeling better with exception of R foot - less swollen, but still painful and red no new symptoms ROS: 10 point ROS as noted above, otherwise negative Physical exam GEN: Alert, oriented, NAD HEENT: Normal conjunctiva, sclera anicteric CV: Regular rate and rhythm, RLE: 2+ edema Pulm: Nonlabored respirations on room air ABD: Soft, nontender, nondistended Integumentary: R dorsum of foot / ankle: erythema, tender, warm Neuro: Normal speech, normal affect Problem List Sepsis secondary to pyelonephritis R foot Cellulitis GPC bacteremia leukopenia, thrombocytopenia, chronic NIDDM2 h/o liver cirrhosis staph capitis and epidermidis on blood cultures; possible skin contaminant, possible true infection; pt with neutropenia /immunosuppressed No significant change of right foot cellulitis Continue vancomycin, Rocephin (switched from levaquin) ID consulted PICC line - will need plt > 50k; transfuse today, plan for PICC tomorrow pt will need to be premedicated, had transfusion reaction last time, likely related to speed of transfusion/possible reaction to protein continue diuresis, edema improving h/o gastric varices and melena, improved, hgb stable continue BB for portal hypertension IV protonix Pain meds PRN Premedicate with 25 mg IV Benadryl and 50 mg IV Solu-Cortef 30 minutes prior to platelet Code: full Dispo: would likely benefit most from SNF, given IV antibiotics, cellulitis, pyelonephritis patient agreeable Time Spent Managing Pts Care (In Minutes): 35
[2021-10-08 06:21] LABS: Potassium 3.4 mmol/L (3.5-5.1)
[2021-10-08] MEDS: INSULIN -REGULAR HUMAN 50 UNIT/0.5 ML ML SQ SCH ×4 (07:30→22:27)
[2021-10-08] MEDS ORDERED: CEFTRIAXONE 2,000 MG in NA CHLORIDE 0.9% 100 ML IV SCH (09:00)
[2021-10-08] MEDS: PANTOPRAZOLE 40 MG INJ IVP SCH ×2 (09:40→22:30)
[2021-10-08] MEDS: FUROSEMIDE 40 MG/4 ML VIAL IV SCH ×2 (09:40→17:21)
[2021-10-08] MEDS: nadoloL 40 MG TAB PO SCH (09:41)
[2021-10-08] MEDS: TERAZOSIN HCL 5 MG CAP PO SCH ×2 (09:41→22:27)
[2021-10-08] MEDS: SPIRONOLACTONE 25 MG TABLET PO SCH (09:42)
[2021-10-08] MEDS: ACETAMINOPHEN 500 MG TAB PO PRN (10:03)
--- NOTE | 2021-10-08 13:26 | P.CNS ---
Date of Consult: 10/08/21 Chief Complaint: Pyelo, Sepsis, Cellulitus RLE History of Present Illness: The patient is a 71-year-old male with a past medical history of liver cirrhosis secondary to nonalcoholic fatty liver disease, diabetes, and pancytopenia who receives packed red blood cells and platelets every 6 months per chart review who presented to the emergency department due to nausea, vomiting, chills, subjective fevers, abdominal pain with dark urine, and pain/swelling/erythema/purple discoloration to right foot/ankle. Patient states his symptoms began approximately 24 hours prior to admission. Denies any recent trauma to his right foot. Blood cultures obtained on 10/02 grew staph capitis in 2 out of 2 bottles, and staph epidermis in 2 out of 2 bottles. Repeat blood cultures obtained on 10/31 are pending. Urine analysis nitrite positive, leukoesterase positive, back. Positive. Urine culture showed mixed temo. CT abdomen and pelvis showed bilateral perinephritic stranding concerning for pyelonephritis. Venous Doppler negative for DVT. Chest x-ray showed interstitial markings with no consolidation. CT foot pending. Patient was empirically placed on Levaquin and vancomycin. Antibiotics switched to monotherapy with IV Rocephin based off blood culture susceptibility reports. Allergies Sulfa (Sulfonamide Antibiotics) Allergy (Verified 07/23/21 07:42) Nausea/Vomiting Home Medications: Glipizide [Glipizide ER] 10 mg PO DAILY 03/13/14 Metformin HCl [Glucophage] 1,000 mg PO BID 03/13/14 Terazosin HCl [Hytrin] 10 mg PO BID 03/13/14 ramipriL [Altace*] 5 mg PO DAILY WITH BREAKFAST 03/13/14 Levothyroxine [Synthroid*] 50 mcg PO [id number] 08/23/19 Albuterol Sulfate [Proair Respiclick] 1 inh PO DAILY 07/23/21 Fluticasone/Vilanterol [Breo Ellipta 200-25 Mcg INH] 1 inh PO DAILY 07/23/21 Omeprazole [Prilosec] 40 mg PO DAILY 07/23/21 - Past Medical/Surgical History Diabetic: Yes -: Diabetes mellitus type 2 [id number] -: Obstructive sleep apnea -: GERD with gastric varices -: Liver cirrhosis -: BPH -: Hypertension -: Pancytopenia -: Ankle surgery -: Appendectomy -: Tonsillectomy -: TURP Psychosocial/ Personal History: Patient lives at home. He has a girlfriend. - Family History Sister Medical History: Diabetes - Social History Smoking Status: Former smoker Alcohol use: No CD- Drugs: No Caffeine use: No Place of Residence: Home Review of Systems 10-point ROS is otherwise unremarkable Physical Examination Temp Pulse Resp BP Pulse Ox 98.8 F 71 16 133/61 94 10/08/21 12:00 10/08/21 12:00 10/08/21 12:00 10/08/21 12:00 10/08/21 12:00 General: Alert, Obese HEENT: Atraumatic, Normocephalic Neck: Supple, 2+ carotid pulse no bruit Respiratory: Clear to auscultation bilaterally, Normal air movement Cardiovascular: Normal pulses, Regular rate/rhythm Capillary refill: <2 Seconds Gastrointestinal: Normal bowel sounds, Distended Musculoskeletal: No clubbing Integumentary: Other (Right foot/ankle cellulitis: 4+ pedal edema, purple/red discoloration centered around ankle. No obvious signs of trauma such as open skin lesions/cuts.) Conclusions/Impression: Antibiotics: Rocephin: 7current Vancomycin: Levaquin: 10/04-10/07 Assessment/plan Bilateral pyelonephritis CT abdomen pelvis showed bilateral para Fendick stranding concerning for pyelonephritis Urine analysis nitrite, urine culture showed mixed temo. Recommend continuing with Rocephin to complete a 14-day course CoNs bacteremia -Blood cultures obtained on 10/02 grew staph capitis in 2 out of 2 bottles and staph epi in 2 out of 2 bottles Repeat blood cultures pending Recommend continuing with Rocephin at this time Right foot/ankle cellulitis Recommend continuing Rocephin, venous Doppler negative for DVT. CT pending. Diabetes Continue sliding scale insulin Pancytopenia Heme-onc consult in place -continue to monitor closely Liver cirrhosis -Medical management per primary team Plan of care discussed Dr. Harris Thank you for consultation
--- NOTE | 2021-10-08 14:34 | RAD REPORT ---
EXAM DESCRIPTION: CT - Foot Right Wo Con - 10/08/2021 2:20 pm CLINICAL HISTORY: cellulitis Pain swelling, cellulitis COMPARISON: No comparisons FINDINGS: Moderate soft tissue swelling, skin thickening and subcutaneous edema is seen involving th e foot and ankle. No subcutaneous gas or localized fluid collection evident. No CT osteomyelitis find ings seen. Large calcaneal spurs. IMPRESSION: Cellulitis findings seen throughout the foot and ankle without osteomyelitis identified.
[2021-10-08] MEDS ORDERED: NA CHLORIDE 0.9% 250 ML IV SCH (16:00)
[2021-10-08] MEDS ORDERED: HYDROCORTISONE SUC 100 MG INJ IV ONE (17:00)
[2021-10-08] MEDS ORDERED: DIPHENHYDRAMINE 50 MG/ML VIAL IV ONE (17:00)
[2021-10-08] MEDS ORDERED: CEFAZOLIN 2 GM in NA CHLORIDE 0.9% 100 ML IVPB SCH (17:00)
[2021-10-08] MEDS ORDERED: WATER FOR INJ,STERILE 10 ML IV SCH (17:00)
[2021-10-09] MEDS: ACETAMINOPHEN 500 MG TAB PO PRN ×2 (01:37→20:32)
[2021-10-09] MEDS: LEVOTHYROXINE SOD 0.05 MG TABLET PO SCH (05:30)
[2021-10-09 05:57] LABS: MPV 8.1 fL (7.6-11.3); RBC Red Blood Cell Count 3.51 M/uL (4.33-5.43)
[2021-10-09 06:21] LABS: Albumin 2.8 g/dL (3.4-5.0); Bilirubin Total 0.7 mg/dL (0.2-1.0); Potassium 4.3 mmol/L (3.5-5.1); Protein, Total 6.9 g/dL (6.4-8.2)
[2021-10-09 06:23] LABS: Magnesium 1.4 mg/dL (1.8-2.4)
[2021-10-09] MEDS ORDERED: Magnesium Sulfate 2gm IVPB 2 G/50 ML BAG IV ONE (06:36)
[2021-10-09] MEDS: SPIRONOLACTONE 25 MG TABLET PO SCH (08:19)
[2021-10-09] MEDS: nadoloL 40 MG TAB PO SCH (08:19)
[2021-10-09] MEDS: CEFTRIAXONE 2,000 MG in NA CHLORIDE 0.9% 100 ML IV SCH (08:20)
[2021-10-09] MEDS: LACTOBACILLUS/ACIDOPHILUS TAB PO SCH ×2 (08:20→20:33)
[2021-10-09] MEDS: FUROSEMIDE 40 MG/4 ML VIAL IV SCH ×2 (08:20→18:07)
[2021-10-09] MEDS: TERAZOSIN HCL 5 MG CAP PO SCH ×2 (08:20→20:50)
[2021-10-09] MEDS: PANTOPRAZOLE 40 MG INJ IVP SCH ×2 (08:20→20:35)
[2021-10-09] MEDS: INSULIN GLARGINE 100 UNIT/ML SQ SCH (08:21)
[2021-10-09] MEDS: INSULIN -REGULAR HUMAN 50 UNIT/0.5 ML ML SQ SCH ×4 (08:21→20:34)
[2021-10-09 16:08] LABS: UR PROTEIN 9.5 mg/dL (<11.9); Urine Protein/Creatinine Ratio 0.5 ratio (<0.15)
[2021-10-09] MEDS ORDERED: DIPHENHYDRAMINE 50 MG/ML VIAL IV ONE (17:00)
[2021-10-09] MEDS ORDERED: NA CHLORIDE 0.9% 250 ML IV SCH (17:00)
[2021-10-09] MEDS ORDERED: HYDROCORTISONE SUC 100 MG INJ IV ONE (17:00)
--- NOTE | 2021-10-09 17:11 | P.PN ---
Subjective Date of Service: 10/09/21 Chief Complaint: Pyelo, Sepsis, Cellulitus RLE Patient seen and examined at bedside, states pain to right lower extremity is improving. Per nursing staff, the patient states that he had about 6 watery bowel movements. Stool sample was collected, C. difficile test pending. Review of Systems 10-point ROS is otherwise unremarkable Physical Examination - Vital Signs Temperature: 98.3 F Blood Pressure: 139/63 Pulse: 76 Respirations: 16 Pulse Ox (%): 96 - Studies Laboratory Last Values WBC 3.0 K/uL (4.3-10.9) L 10/02/21 20:21 RBC 4.31 M/uL (4.33-5.43) L 10/02/21 20:21 Hgb 12.6 g/dL (13.6-17.9) L 10/02/21 20:21 Hct 38.6 % (39.6-49.0) L 10/02/21 20:21 MCV 89.5 fL (80-100) 10/02/21 20:21 MCH 29.2 pg (27.0-35.0) 10/02/21 20:21 MCHC 32.6 g/dL (32.0-36.0) 10/02/21 20:21 RDW 17.9 % (12.1-15.2) H 10/02/21 20:21 Plt Count 24 K/uL (152-406) L* 10/02/21 20:21 MPV 8.2 fL (7.6-11.3) 10/02/21 20:21 Neutrophils % 82.7 % (41.7-73.7) H 10/02/21 20:21 Lymphocytes % 11.1 % (15.3-44.8) L 10/02/21 20:21 Monocytes % 5.9 % (3.3-12.3) 10/02/21 20:21 Eosinophils % 0.1 % (0-4.4) 10/02/21 20:21 Basophils % 0.2 % (0-1.3) 10/02/21 20:21 Absolute Neutrophils 2.5 K/uL (1.8-8.0) 10/02/21 20:21 Absolute Lymphocytes 0.3 K/uL (0.7-4.9) L 10/02/21 20:21 Absolute Monocytes 0.2 K/uL (0.1-1.3) 10/02/21 20:21 Absolute Eosinophils 0.0 K/uL (0-0.5) 10/02/21 20:21 Absolute Basophils 0.0 K/uL (0-0.5) 10/02/21 20:21 Sodium 132 mmol/L (136-145) L 10/02/21 20:21 Potassium 4.0 mmol/L (3.5-5.1) 10/02/21 20:21 Chloride 99 mmol/L (98-107) 10/02/21 20:21 Carbon Dioxide 24 mmol/L (21-32) 10/02/21 20:21 Anion Gap 13.0 mEq/L (5.0-15.0) 10/02/21 20:21 BUN 21 mg/dL (7-18) H 10/02/21 20:21 Creatinine 1.48 mg/dL (0.55-1.3) H 10/02/21 20:21 Est GFR (CKD-EPI) 50 ml/min (=/>90) L 10/02/21 20:21 Glucose 185 mg/dL (74-106) H 10/02/21 20:21 Lactic Acid 5.2 mmol/L (0.4-2.0) H* 10/02/21 22:21 Calcium 9.0 mg/dL (8.5-10.1) 10/02/21 20:21 Total Bilirubin 2.4 mg/dL (0.2-1.0) H 10/02/21 20:21 AST 24 U/L (15-37) 10/02/21 20:21 ALT 25 U/L (12-78) 10/02/21 20:21 Alkaline Phosphatase 63 U/L (45-117) 10/02/21 20:21 Serum Total Protein 7.7 g/dL (6.4-8.2) 10/02/21 20:21 Albumin 3.4 g/dL (3.4-5.0) 10/02/21 20:21 Globulin 4.3 g/dL (2.3-3.5) H 10/02/21 20:21 Albumin/Globulin Ratio 0.8 (1.1-1.8) L 10/02/21 20:21 Lipase 108 U/L (73-393) 10/02/21 20:21 Urine pH 5.5 (5.0-7.0) 10/02/21 20:16 Ur Specific [place] >=1.030 (1.005-1.030) 10/02/21 20:16 Glucose (UA)(Auto) Negative (Negative) 10/02/21 20:16 Urine Ketones Negative (Negative) 10/02/21 20:16 Urine Blood 3+ (Negative) H 10/02/21 20:16 Urine Nitrite Positive (Negative) H 10/02/21 20:16 Ur Leukocyte Esterase Negative (Negative) 10/02/21 20:16 Urine RBC 5-10 /HPF (NONE SEEN) H 10/02/21 20:15 Urine WBC <5 /HPF (<5) 10/02/21 20:15 Ur Squamous Epith Cells <5 /HPF (NONE SEEN) 10/02/21 20:15 Urine Bacteria <20 /HPF (NONE SEEN) 10/02/21 20:15 Urine Mucus 2+ /HPF (NONE SEEN) 10/02/21 20:15 Urine Culture Reflexed Not needed 10/02/21 20:15 Urine Total Protein 3+ (Negative) H 10/02/21 20:16 SARS-CoV-2 Rap RNA(RT-PCR) Negative (NEGATIVE) 10/02/21 19:48 Assessment And Plan - Plan Physical exam: General: Alert, Obese HEENT: Atraumatic, Normocephalic Neck: Supple, 2+ carotid pulse no bruit Respiratory: Clear to auscultation bilaterally, Normal air movement Cardiovascular: Normal pulses, Regular rate/rhythm Capillary refill: <2 Seconds Gastrointestinal: Normal bowel sounds, Distended Musculoskeletal: No clubbing Integumentary: Other (Right foot/ankle cellulitis: 4+ pedal edema, purple/red discoloration centered around ankle. No obvious signs of trauma such as open skin lesions/cuts.) Conclusions/Impression: Antibiotics: Rocephin: urrent Vancomycin: Levaquin: 10/04-10/07 Assessment/plan Bilateral pyelonephritis CT abdomen pelvis showed bilateral paranephritic stranding concerning for pyelonephritis Urine analysis nitrite, urine culture showed mixed temo. Recommend continuing with Rocephin to complete a 14-day course CoNs bacteremia -Blood cultures obtained on 10/02 grew staph capitis in 2 out of 2 bottles and staph epi in 2 out of 2 bottles Repeat blood cultures obtained on 10/04 showed no growth Recommend continuing with Rocephin at this time Right foot/ankle cellulitis Recommend continuing Rocephin, venous Doppler negative for DVT. -CT findings consistent with cellulitis. Diabetes Continue sliding scale insulin Pancytopenia -Dr. Latif following -Patient states that he has never been diagnosed with neutropenia in the past. Does suffer from thrombocytopenia/anemia. States he gets infusions every 3 to 6 months. -Absolute neutrophil count 1.1, minimal infectious risk. Patient is on isolation precautions. -continue to monitor closely Liver cirrhosis -Medical management per primary team Diarrhea -C. difficile test pending -Isolation contact in place Plan of care discussed Dr. Harris Thank you for consultation
--- NOTE | 2021-10-09 17:12 | P.PN ---
Date of Service: 10/09/21 Subjective: overall feeling better swelling and pain of r foot better continues with diarrhea, watery / more yesterday, sent for c dif ROS: 10 point ROS as noted above, otherwise negative Physical exam GEN: Alert, oriented, NAD HEENT: Normal conjunctiva, sclera anicteric CV: Regular rate and rhythm, RLE: trace-1+ edema Pulm: Nonlabored respirations on room air ABD: Soft, nontender, nondistended Integumentary: R dorsum of foot / ankle: erythema, mild tenderness Neuro: Normal speech, normal affect Problem List Sepsis secondary to pyelonephritis R foot Cellulitis GPC bacteremia leukopenia, thrombocytopenia, chronic watery diarrhea NIDDM2 h/o liver cirrhosis SAM staph capitis and epidermidis on blood cultures; possible skin contaminant, possible true infection; pt with neutropenia /immunosuppressed R foot cellulitis/swelling improved Continue vancomycin, Rocephin (switched from levaquin) ID consulted PICC line - will need plt > 50k Plt: 50k this morning, tentatively will have PICC placed this evening, will transfuse more platelets tolerated transfusion well, premedicated continue diuresis, edema improving; nephro consulted; may need to decrease diuretics h/o gastric varices and melena, improved, hgb stable continue BB for portal hypertension IV protonix Pain meds PRN Premedicate with 25 mg IV Benadryl and 50 mg IV Solu-Cortef 30 minutes prior to platelet Code: full Dispo: SNF, IV antibiotics Time Spent Managing Pts Care (In Minutes): 35
[2021-10-09] MEDS ORDERED: NA CHLORIDE 0.9% 250 ML ONE (18:31)
[2021-10-09] MEDS ORDERED: MAGNESIUM SULFATE 1 gm IVPB 1 GM/100 ML BAG IV ONE (20:30)
[2021-10-09 22:39] LABS: MPV 8.2 fL (7.6-11.3)
--- NOTE | 2021-10-10 05:01 | P.CNS ---
Date of Consult: 10/09/21 Reason for Consult: renal failure Requesting Physician: Michael Parra Chief Complaint: Pyelo, Sepsis, Cellulitus RLE History of Present Illness: 71M with past medical history of JORDAN liver cirrhosis, DM2, & pancytopenia who p/w abdominal pain, nausea, & vomiting, found to have bilat pyelonephritis & CoNS bacteremia, referred to Nephrology for SAM. SCr at baseline is 0.9-1.1 as of 10/07/2021, increased to 1.5 today. He is receiving abx. Urine chem pending. Ramipril on hold. Allergies Sulfa (Sulfonamide Antibiotics) Allergy (Verified 07/23/21 07:42) Nausea/Vomiting Home Medications: Glipizide [Glipizide ER] 10 mg PO DAILY 03/13/14 Metformin HCl [Glucophage] 1,000 mg PO BID 03/13/14 Terazosin HCl [Hytrin] 10 mg PO BID 03/13/14 ramipriL [Altace*] 5 mg PO DAILY WITH BREAKFAST 03/13/14 Levothyroxine [Synthroid*] 50 mcg PO [id number] 08/23/19 Albuterol Sulfate [Proair Respiclick] 1 inh PO DAILY 07/23/21 Fluticasone/Vilanterol [Breo Ellipta 200-25 Mcg INH] 1 inh PO DAILY 07/23/21 Omeprazole [Prilosec] 40 mg PO DAILY 07/23/21 - Past Medical/Surgical History Diabetic: Yes -: Diabetes mellitus type 2 [id number] -: Obstructive sleep apnea -: GERD with gastric varices -: Liver cirrhosis -: BPH -: Hypertension -: Pancytopenia -: Ankle surgery -: Appendectomy -: Tonsillectomy -: TURP Psychosocial/ Personal History: Patient lives at home. He has a girlfriend. - Family History Sister Medical History: Diabetes - Social History Smoking Status: Former smoker Alcohol use: No CD- Drugs: No Caffeine use: No Place of Residence: Home Physical Examination Temp Pulse Resp BP Pulse Ox 97.6 F 74 18 118/56 L 93 10/10/21 00:00 10/10/21 00:00 10/10/21 00:00 10/10/21 00:00 10/10/21 00:00 Conclusions/Impression: # SAM 2/2 ATN + bilateral pyelonephritis + ramipril use SCr at baseline is 0.9-1.1 as of 10/07/2021, increased to 1.5 today Urinalysis +bld, + hematuria, no pyuria, S.G. elevated Urine chem non-prerenal +Mild proteinuria, 0.5g on random UPCR Abx F/u cultures Ramipril on hold, avoid ACEI or ARB [place] po fluid intake Monitor renal panel # Bilateral pyelonephritis CT abdomen pelvis showed bilateral paranephritic stranding concerning for pyelonephritis +CoNS bacteremia Abx F/u repeat BCx # R foot/ankle cellulitis Abx as above # BPH Switch Terazosin to qHS Start Finasteride qHS # Diarrhea F/u c diff testing # Pseudohyponatremia D/t hyperglycemia Glycemic control [place] po fluid intake # HypoMg Monitor/replete prn # JORDAN liver cirrhosis Decompensated, +portal Htn Cont lasix + mitesh Low Na diet < 2g/d [place] po fluid intake as above # DM2 Mngt per primary team # Pancytopenia On regular every 6 months PRBC and platelet transfusion)
--- NOTE | 2021-10-10 06:19 | P.PN ---
Date of Service: 10/10/21 Subjective: improving picc placed last night diarrhea slowing down ROS: 10 point ROS as noted above, otherwise negative Physical exam GEN: Alert, oriented, NAD HEENT: Normal conjunctiva, sclera anicteric CV: Regular rate and rhythm, RLE: trace-1+ edema Pulm: Nonlabored respirations on room air ABD: Soft, nontender, nondistended Integumentary: R dorsum of foot / ankle: erythema, mild tenderness, no purulent drainage, no palpable abscess Neuro: Normal speech, normal affect Problem List Sepsis secondary to pyelonephritis R foot Cellulitis GPC bacteremia leukopenia, thrombocytopenia, chronic watery diarrhea NIDDM2 h/o liver cirrhosis SAM staph capitis and epidermidis on blood cultures; possible skin contaminant, possible true infection; pt with neutropenia /immunosuppressed R foot cellulitis/swelling improved slightly ID consulted - continue rocephin, added doxy 10/10 for added coverage for R foot cellulitis - slow improvement PICC line placed last night tolerated transfusion well, premedicated - steroids caused hyperglycemia continue diuresis, edema improving; nephro consulted h/o gastric varices and melena, improved, hgb stable continue BB for portal hypertension IV protonix Pain meds PRN PT consult Code: full Dispo: SNF, IV antibiotics, dc 1-2 days Time Spent Managing Pts Care (In Minutes): 35
[2021-10-10] MEDS: LEVOTHYROXINE SOD 0.05 MG TABLET PO SCH (06:25)
[2021-10-10 06:54] LABS: Hematocrit 29.8 % (39.6-49.0); MPV 7.6 fL (7.6-11.3); RBC Red Blood Cell Count 3.48 M/uL (4.33-5.43)
[2021-10-10 07:07] LABS: Magnesium 1.8 mg/dL (1.8-2.4); Potassium 3.4 mmol/L (3.5-5.1)
[2021-10-10 07:08] LABS: Creatine Phosphokinase 23 U/L (39-308); NT PRO-BNP 395 pg/mL (<125)
[2021-10-10] MEDS ORDERED: MAGNESIUM SULFATE 1 gm IVPB 1 GM/100 ML BAG IV ONE (08:00)
[2021-10-10] MEDS: INSULIN -REGULAR HUMAN 50 UNIT/0.5 ML ML SQ SCH ×4 (08:30→21:31)
[2021-10-10] MEDS: PANTOPRAZOLE 40 MG INJ IVP SCH ×2 (08:31→21:24)
[2021-10-10] MEDS: CEFTRIAXONE 2,000 MG in NA CHLORIDE 0.9% 100 ML IV SCH (08:31)
[2021-10-10] MEDS: nadoloL 40 MG TAB PO SCH (08:31)
[2021-10-10] MEDS: LACTOBACILLUS/ACIDOPHILUS TAB PO SCH ×2 (08:31→21:25)
[2021-10-10] MEDS: SPIRONOLACTONE 25 MG TABLET PO SCH (08:31)
[2021-10-10] MEDS: INSULIN GLARGINE 100 UNIT/ML SQ SCH (08:32)
[2021-10-10] MEDS: FUROSEMIDE 40 MG/4 ML VIAL IV SCH ×2 (09:51→17:15)
--- NOTE | 2021-10-10 11:17 | RAD REPORT ---
EXAM DESCRIPTION: RAD - Chest Single View - 10/10/2021 4:59 am CLINICAL HISTORY: 71 years Male, picc insertion COMPARISON: 10/02/2021 TECHNIQUE: Single portable x-ray view of the chest performed on 10/10/2021 at 4:53 AM FINDINGS: The lungs are well expanded and are grossly clear. Again demonstrated is very mild promine nce of the interstitial markings. There is no evidence of a pneumothorax. The cardiac silhouette is normal in size and configuration. The mediastinal contours are normal. No acute osseous abnormality is identified. No acute soft tissue abnormalities are seen. Lines and tubes: A right upper extremity PICC line catheter is present. The tip overlies the region of the superior vena cava. Free air: None IMPRESSION: 1. The tip of the right upper extremity PICC line catheter overlies the region of the nam perior vena cava. 2. No evidence of acute intrathoracic disease. There is stable mild, nonspecific prominence of the in terstitial markings. Electronically signed by: Georgia Alonso DO 10/10/2021 5:54 AM CDT Due to temporary technical issues with the PACS/Fluency reporting system, reports are being signed by the in house radiologists without review as a courtesy to insure prompt reporting. The interpreting radiologist is fully responsible for the content of the report.
--- NOTE | 2021-10-10 12:34 | P.PN ---
Subjective Date of Service: 10/10/21 Chief Complaint: Pyelo, Sepsis, Cellulitus RLE Subjective: No new changes Physical Examination - Vital Signs Temperature: 97.9 F Blood Pressure: 133/65 Pulse: 71 Respirations: 16 Pulse Ox (%): 98 - Physical Exam General: In no apparent distress HEENT: Atraumatic, Normocephalic Neck: Supple, JVD not distended Respiratory: Other (symmetric chest expansion) Cardiovascular: No rubs, No murmurs Gastrointestinal: No rebound Musculoskeletal: No clubbing Integumentary: No warmth Neurological: Normal speech, Normal tone Urinary: Other (no bladder distention) External genitalia: Deferred Rectal: Deferred Assessment And Plan - Plan # SAM 2/2 ATN + bilateral pyelonephritis + ramipril use SCr at baseline is 0.9-1.1 as of 10/07/2021, increased to 1.5, improved to 1.3 Urinalysis +bld, + hematuria, no pyuria, S.G. elevated Urine chem non-prerenal +Mild proteinuria, 0.5g on random UPCR Abx F/u cultures Ramipril on hold, avoid ACEI or ARB [place] po fluid intake Monitor renal panel # Bilateral pyelonephritis CT abdomen pelvis showed bilateral paranephritic stranding concerning for pyelonephritis +CoNS bacteremia Abx F/u repeat BCx # R foot/ankle cellulitis Abx as above # BPH Switch Terazosin to qHS Start Finasteride qHS # Diarrhea F/u c diff testing # Pseudohyponatremia D/t hyperglycemia Glycemic control [place] po fluid intake # HypoMg Monitor/replete prn # JORDAN liver cirrhosis Decompensated, +portal Htn Cont lasix + mitesh Low Na diet < 2g/d [place] po fluid intake as above # DM2 Mngt per primary team # Pancytopenia On regular every 6 months PRBC and platelet transfusion
--- NOTE | 2021-10-10 16:26 | P.PN ---
Subjective Date of Service: 10/10/21 Chief Complaint: Pyelo, Sepsis, Cellulitus RLE Patient seen and examined at bedside, states diarrhea has worsened. C. difficile still pending. Stool lactoferrin also pending. Patient remains afebrile, leukopenia is stable. Review of Systems 10-point ROS is otherwise unremarkable Physical Examination - Vital Signs Temperature: 97.9 F Blood Pressure: 133/65 Pulse: 71 Respirations: 16 Pulse Ox (%): 98 - Studies Laboratory Last Values WBC 3.0 K/uL (4.3-10.9) L 10/02/21 20:21 RBC 4.31 M/uL (4.33-5.43) L 10/02/21 20:21 Hgb 12.6 g/dL (13.6-17.9) L 10/02/21 20:21 Hct 38.6 % (39.6-49.0) L 10/02/21 20:21 MCV 89.5 fL (80-100) 10/02/21 20:21 MCH 29.2 pg (27.0-35.0) 10/02/21 20:21 MCHC 32.6 g/dL (32.0-36.0) 10/02/21 20:21 RDW 17.9 % (12.1-15.2) H 10/02/21 20:21 Plt Count 24 K/uL (152-406) L* 10/02/21 20:21 MPV 8.2 fL (7.6-11.3) 10/02/21 20:21 Neutrophils % 82.7 % (41.7-73.7) H 10/02/21 20:21 Lymphocytes % 11.1 % (15.3-44.8) L 10/02/21 20:21 Monocytes % 5.9 % (3.3-12.3) 10/02/21 20:21 Eosinophils % 0.1 % (0-4.4) 10/02/21 20:21 Basophils % 0.2 % (0-1.3) 10/02/21 20:21 Absolute Neutrophils 2.5 K/uL (1.8-8.0) 10/02/21 20:21 Absolute Lymphocytes 0.3 K/uL (0.7-4.9) L 10/02/21 20:21 Absolute Monocytes 0.2 K/uL (0.1-1.3) 10/02/21 20:21 Absolute Eosinophils 0.0 K/uL (0-0.5) 10/02/21 20:21 Absolute Basophils 0.0 K/uL (0-0.5) 10/02/21 20:21 Sodium 132 mmol/L (136-145) L 10/02/21 20:21 Potassium 4.0 mmol/L (3.5-5.1) 10/02/21 20:21 Chloride 99 mmol/L (98-107) 10/02/21 20:21 Carbon Dioxide 24 mmol/L (21-32) 10/02/21 20:21 Anion Gap 13.0 mEq/L (5.0-15.0) 10/02/21 20:21 BUN 21 mg/dL (7-18) H 10/02/21 20:21 Creatinine 1.48 mg/dL (0.55-1.3) H 10/02/21 20:21 Est GFR (CKD-EPI) 50 ml/min (=/>90) L 10/02/21 20:21 Glucose 185 mg/dL (74-106) H 10/02/21 20:21 Lactic Acid 5.2 mmol/L (0.4-2.0) H* 10/02/21 22:21 Calcium 9.0 mg/dL (8.5-10.1) 10/02/21 20:21 Total Bilirubin 2.4 mg/dL (0.2-1.0) H 10/02/21 20:21 AST 24 U/L (15-37) 10/02/21 20:21 ALT 25 U/L (12-78) 10/02/21 20:21 Alkaline Phosphatase 63 U/L (45-117) 10/02/21 20:21 Serum Total Protein 7.7 g/dL (6.4-8.2) 10/02/21 20:21 Albumin 3.4 g/dL (3.4-5.0) 10/02/21 20:21 Globulin 4.3 g/dL (2.3-3.5) H 10/02/21 20:21 Albumin/Globulin Ratio 0.8 (1.1-1.8) L 10/02/21 20:21 Lipase 108 U/L (73-393) 10/02/21 20:21 Urine pH 5.5 (5.0-7.0) 10/02/21 20:16 Ur Specific [place] >=1.030 (1.005-1.030) 10/02/21 20:16 Glucose (UA)(Auto) Negative (Negative) 10/02/21 20:16 Urine Ketones Negative (Negative) 10/02/21 20:16 Urine Blood 3+ (Negative) H 10/02/21 20:16 Urine Nitrite Positive (Negative) H 10/02/21 20:16 Ur Leukocyte Esterase Negative (Negative) 10/02/21 20:16 Urine RBC 5-10 /HPF (NONE SEEN) H 10/02/21 20:15 Urine WBC <5 /HPF (<5) 10/02/21 20:15 Ur Squamous Epith Cells <5 /HPF (NONE SEEN) 10/02/21 20:15 Urine Bacteria <20 /HPF (NONE SEEN) 10/02/21 20:15 Urine Mucus 2+ /HPF (NONE SEEN) 10/02/21 20:15 Urine Culture Reflexed Not needed 10/02/21 20:15 Urine Total Protein 3+ (Negative) H 10/02/21 20:16 SARS-CoV-2 Rap RNA(RT-PCR) Negative (NEGATIVE) 10/02/21 19:48 Assessment And Plan - Plan Physical exam: General: Alert, Obese HEENT: Atraumatic, Normocephalic Neck: Supple, 2+ carotid pulse no bruit Respiratory: Clear to auscultation bilaterally, Normal air movement Cardiovascular: Normal pulses, Regular rate/rhythm Capillary refill: <2 Seconds Gastrointestinal: Normal bowel sounds, Distended Musculoskeletal: No clubbing Integumentary: Other (Right foot/ankle cellulitis: 4+ pedal edema, purple/red discoloration centered around ankle. No obvious signs of trauma such as open skin lesions/cuts.) Conclusions/Impression: Antibiotics: Rocephin: urrent Doxycycline:10/10-current Vancomycin: Levaquin: 10/04-10/07 Assessment/plan Bilateral pyelonephritis CT abdomen pelvis showed bilateral paranephritic stranding concerning for pyelonephritis Urine analysis nitrite, urine culture showed mixed temo. Recommend continuing with Rocephin to complete a 14-day course CoNs bacteremia -Blood cultures obtained on 10/02 grew staph capitis in 2 out of 2 bottles and staph epi in 2 out of 2 bottles Repeat blood cultures obtained on 10/04 showed no growth Recommend continuing with Rocephin at this time Right foot/ankle cellulitis Recommend continuing Rocephin, venous Doppler negative for DVT. -CT findings consistent with cellulitis. Doxycycline added to antibiotic regimen on 10/10 as skin color change and's have shown little improvement Diabetes Continue sliding scale insulin Pancytopenia -Dr. Latif following -Patient states that he has never been diagnosed with neutropenia in the past. Does suffer from thrombocytopenia/anemia. States he gets infusions every 3 to 6 months. -Absolute neutrophil count 1.1, minimal infectious risk. Patient is on isolation precautions. -continue to monitor closely Liver cirrhosis -Medical management per primary team Diarrhea -C. difficile test pending -Isolation contact in place Plan of care discussed Dr. Harris Thank you for consultation
[2021-10-10] MEDS: ACETAMINOPHEN 500 MG TAB PO PRN (21:24)
[2021-10-10] MEDS: DOXYCYCLINE 100 MG in NA CHLORIDE 0.9% 100 ML IVPB SCH (21:26)
[2021-10-10] MEDS: TERAZOSIN HCL 5 MG CAP PO SCH (21:27)
[2021-10-10] MEDS: FINASTERIDE 5 MG TAB PO SCH (21:32)
--- NOTE | 2021-10-11 06:09 | P.PN ---
Date of Service: 10/11/21 Subjective: no acute events overnight continues with a few loose stool R foot pain, but improving no new issues/concerns ROS: 10 point ROS as noted above, otherwise negative Physical exam GEN: Alert, oriented, NAD HEENT: Normal conjunctiva, sclera anicteric CV: Regular rate and rhythm, RLE: trace edema Pulm: Nonlabored respirations on room air ABD: Soft, nontender, nondistended Integumentary: R dorsum of foot / ankle: erythema, mild tenderness, no purulent drainage, no palpable abscess Neuro: Normal speech, normal affect Problem List Sepsis secondary to pyelonephritis R foot Cellulitis GPC bacteremia leukopenia, thrombocytopenia, chronic watery diarrhea NIDDM2 h/o liver cirrhosis SAM staph capitis and epidermidis on blood cultures; possible skin contaminant, possible true infection; pt with neutropenia /immunosuppressed R foot cellulitis improving ID consulted, recommended changed rocephin to vanc/cefepime on 10/11, felt R foot minimall improving PICC line placed 10/10 tolerated transfusion well, premedicated - steroids caused hyperglycemia edema improved, cut back on diuresis; nephro consulted h/o gastric varices and melena, improved, hgb stable continue BB for portal hypertension Pain meds PRN PT consult Code: full Dispo: SNF, IV antibiotics, dc 1-2 days Time Spent Managing Pts Care (In Minutes): 35
[2021-10-11] MEDS: LEVOTHYROXINE SOD 0.05 MG TABLET PO SCH (06:30)
[2021-10-11 06:51] LABS: Absolute Lymphocytes (CBC) 0.5 K/uL (0.7-4.9); Hematocrit 31.1 % (39.6-49.0); Lymphocytes % 25.6 % (15.3-44.8); MPV 7.8 fL (7.6-11.3); RBC Red Blood Cell Count 3.64 M/uL (4.33-5.43)
--- NOTE | 2021-10-11 06:59 | P.PN ---
Subjective Date of Service: 10/11/21 Chief Complaint: Pyelo, Sepsis, Cellulitus RLE Subjective: No new changes Physical Examination - Vital Signs Temperature: 97.2 F Blood Pressure: 135/64 Pulse: 80 Respirations: 17 Pulse Ox (%): 95 - Physical Exam General: In no apparent distress HEENT: Atraumatic, Normocephalic Neck: Supple, JVD not distended Respiratory: Other (symmetric chest expansion) Cardiovascular: No rubs, No murmurs Gastrointestinal: No rebound, Distended Musculoskeletal: No clubbing Integumentary: No warmth Neurological: Normal speech, Normal tone Lymphatics: No axilla or inguinal lymphadenopathy Urinary: Other (no bladder distention) External genitalia: Deferred Rectal: Deferred Assessment And Plan - Plan # SAM 2/2 ATN + bilateral pyelonephritis + ramipril use SCr at baseline is 0.9-1.1 as of 10/07/2021, increased to 1.5, improved to 1.3 Urinalysis +bld, + hematuria, no pyuria, S.G. elevated Urine chem non-prerenal +Mild proteinuria, 0.5g on random UPCR Abx F/u cultures Ramipril on hold, avoid ACEI or ARB [place] po fluid intake Monitor renal panel # Bilateral pyelonephritis CT abdomen pelvis showed bilateral paranephritic stranding concerning for pyelonephritis +CoNS bacteremia Abx F/u repeat BCx # R foot/ankle cellulitis Abx as above # BPH Switch Terazosin to qHS Start Finasteride qHS # Diarrhea F/u c diff testing # Pseudohyponatremia D/t hyperglycemia Glycemic control [place] po fluid intake # HypoMg Monitor/replete prn # JORDAN liver cirrhosis Decompensated, +portal Htn Cont lasix + mitesh Low Na diet < 2g/d [place] po fluid intake as above # DM2 Mngt per primary team # Pancytopenia On regular every 6 months PRBC and platelet transfusion)
[2021-10-11 07:02] LABS: Magnesium 1.6 mg/dL (1.8-2.4); Potassium 3.2 mmol/L (3.5-5.1)
[2021-10-11] MEDS: INSULIN -REGULAR HUMAN 50 UNIT/0.5 ML ML SQ SCH ×4 (07:30→21:00)
[2021-10-11] MEDS: nadoloL 40 MG TAB PO SCH (08:35)
[2021-10-11] MEDS: SPIRONOLACTONE 25 MG TABLET PO SCH ×3 (08:36→21:55)
[2021-10-11] MEDS: glipiZIDE 5 MG TAB PO SCH (08:36)
[2021-10-11] MEDS: FUROSEMIDE 40 MG/4 ML VIAL IV SCH (08:37)
[2021-10-11] MEDS: PANTOPRAZOLE 40 MG INJ IVP SCH (08:37)
[2021-10-11] MEDS: LACTOBACILLUS/ACIDOPHILUS TAB PO SCH ×2 (08:37→21:55)
[2021-10-11] MEDS: INSULIN GLARGINE 100 UNIT/ML SQ SCH (08:37)
[2021-10-11] MEDS: CEFTRIAXONE 2,000 MG in NA CHLORIDE 0.9% 100 ML IV SCH (08:38)
[2021-10-11] MEDS: DOXYCYCLINE 100 MG in NA CHLORIDE 0.9% 100 ML IVPB SCH (09:42)
[2021-10-11] MEDS: VANCOMYCIN 1.75 GM in NA CHLORIDE 0.9% 500 ML IVPB SCH (13:00)
[2021-10-11 13:09] LABS: C.diff Antigen/Toxin Ag neg : Tox neg (NEG : NEG)
[2021-10-11] MEDS: FUROSEMIDE 40 MG TABLET PO SCH (16:27)
--- NOTE | 2021-10-11 16:40 | PN ---
Subjective: The patient is lying in bed, continue to have diarrhea. The patient also has pancytopen ic. Denies any headache, nausea, vomiting, chest pain, abdominal pain, constipation. Objective: Vital Signs: Temperature 98, pulse 76, respirations 14, blood pressure 143/67. Lungs: Basal crackles. Heart: S1, S2. Regular. Abdomen: Soft, nontender. Bowel sounds present. Extremity: Trace edema. Right leg swelling and redness noted around ankle region. Laboratory Data: WBC 1.9, hemoglobin 10.9, platelets are 54. Chemistry shows sodium 137, potassium 3.2, chloride 99, bicarb 31, BUN is 24, creatinine 1.3, glucose is 200. Micro data shows Staph epi a nd Staph capitis from 10/02. Repeat blood culture on 10/04 and 10/05, negative. 10/04 is negative. C diff is pending. Currently, the patient on doxycycline and Rocephin. Assessment And Plan: Right ankle foot cellulitis in a patient with pancytopenia and diarrhea, possib le secondary to Clostridium difficile versus malabsorption syndrome. The patient will recommend to h old off on Protonix and also discontinue Rocephin and doxycycline. Start the patient on v ancomycin. Bilateral pyelonephritis. CT scan showing bilateral perinephric stranding. Urine culture with mixed temo. Continue current medications. Start vancomycin. We will follow the patient closely. We wi ll discuss patient's case with hospitalist team. NF/MODL Voice ID: [id number] Report ID: [id number]
[2021-10-11] MEDS: CEFEPIME 1 GM in NA CHLORIDE 0.9% 100 ML IV SCH (21:53)
[2021-10-11] MEDS: TERAZOSIN HCL 5 MG CAP PO SCH (21:54)
[2021-10-11] MEDS: FINASTERIDE 5 MG TAB PO SCH (21:55)
--- NOTE | 2021-10-12 06:30 | P.PN ---
Date of Service: 10/12/21 Subjective: improving leg less swollen, less red ROS: 10 point ROS as noted above, otherwise negative Physical exam GEN: Alert, oriented, NAD HEENT: Normal conjunctiva, sclera anicteric CV: Regular rate and rhythm, RLE: trace 1+ pedal edema Pulm: Nonlabored respirations on room air Integumentary: R dorsum of foot / ankle: erythema, mild tenderness, induration Neuro: Normal speech, normal affect Problem List Sepsis secondary to pyelonephritis R foot Cellulitis GPC bacteremia leukopenia, thrombocytopenia, chronic watery diarrhea NIDDM2 h/o liver cirrhosis SAM staph capitis and epidermidis on blood cultures; possible skin contaminant, possible true infection; pt with neutropenia /immunosuppressed; will cover R foot cellulitis improving ID consulted, recommended changed rocephin to vanc/cefepime on 10/11, felt R foot minimally improving PICC line placed 10/10 s/p platelets x 2; tolerated transfusion well, premedicated - steroids caused hyperglycemia nephro consulted; renal function stable; diuresis scaled back as continues to improve h/o gastric varices and melena, occult +, no melena, hgb stable continue BB for portal hypertension Pain meds PRN PT consult Code: full Dispo: SNF, IV antibiotics, dc Thursday, pending auth as continues to improve, may be able to discharge home Time Spent Managing Pts Care (In Minutes): 35
[2021-10-12] MEDS: LEVOTHYROXINE SOD 0.05 MG TABLET PO SCH (06:42)
[2021-10-12 07:02] LABS: Absolute Lymphocytes (CBC) 0.5 K/uL (0.7-4.9); Hematocrit 32.2 % (39.6-49.0); Lymphocytes % 22.7 % (15.3-44.8); MPV 7.8 fL (7.6-11.3); RBC Red Blood Cell Count 3.72 M/uL (4.33-5.43)
[2021-10-12 07:20] LABS: Albumin 2.8 g/dL (3.4-5.0); Bilirubin Total 0.7 mg/dL (0.2-1.0); Potassium 3.3 mmol/L (3.5-5.1); Protein, Total 6.8 g/dL (6.4-8.2)
[2021-10-12] MEDS: INSULIN -REGULAR HUMAN 50 UNIT/0.5 ML ML SQ SCH ×4 (07:30→21:08)
[2021-10-12 07:33] LABS: Magnesium 1.6 mg/dL (1.8-2.4)
[2021-10-12] MEDS: LACTOBACILLUS/ACIDOPHILUS TAB PO SCH ×2 (08:28→21:07)
[2021-10-12] MEDS: FUROSEMIDE 40 MG TABLET PO SCH ×2 (08:28→16:53)
[2021-10-12] MEDS: glipiZIDE 5 MG TAB PO SCH (08:29)
[2021-10-12] MEDS: nadoloL 40 MG TAB PO SCH (08:29)
[2021-10-12] MEDS: SPIRONOLACTONE 25 MG TABLET PO SCH ×2 (08:29→21:07)
[2021-10-12] MEDS: CEFEPIME 1 GM in NA CHLORIDE 0.9% 100 ML IV SCH ×2 (08:30→21:06)
[2021-10-12] MEDS: INSULIN GLARGINE 100 UNIT/ML SQ SCH (08:30)
--- NOTE | 2021-10-12 09:12 | P.PN ---
Subjective Date of Service: 10/12/21 Chief Complaint: Pyelo, Sepsis, Cellulitus RLE Subjective: No new changes Physical Examination - Vital Signs Temperature: 98.6 F Blood Pressure: 142/65 Pulse: 78 Respirations: 16 Pulse Ox (%): 95 - Physical Exam General: In no apparent distress HEENT: Atraumatic, Normocephalic Neck: Supple, JVD not distended Respiratory: Other (symmetric chest expansion) Cardiovascular: No rubs, No murmurs Gastrointestinal: Soft and benign, No rebound Musculoskeletal: No clubbing Integumentary: No warmth Neurological: Normal speech, Normal tone Urinary: Other (no bladder distention) External genitalia: Deferred Rectal: Deferred Assessment And Plan - Plan # SAM 2/2 ATN + bilateral pyelonephritis + ramipril use SCr at baseline is 0.9-1.1 as of 10/07/2021, increased to 1.5, improved to 1.3-1.4 Urinalysis +bld, + hematuria, no pyuria, S.G. elevated Urine chem non-prerenal +Mild proteinuria, 0.5g on random UPCR Abx F/u cultures Ramipril on hold, avoid ACEI or ARB [place] po fluid intake Monitor renal panel # Bilateral pyelonephritis CT abdomen pelvis showed bilateral paranephritic stranding concerning for pyelonephritis +CoNS bacteremia Abx F/u repeat BCx # R foot/ankle cellulitis Abx as above # BPH Switch Terazosin to qHS Start Finasteride qHS # Diarrhea F/u c diff testing # Pseudohyponatremia D/t hyperglycemia Glycemic control [place] po fluid intake # HypoMg Mg IV repletion today # HypoK KCl IV repletion today # JORDAN liver cirrhosis Decompensated, +portal Htn Cont lasix + mitesh Low Na diet < 2g/d [place] po fluid intake as above # DM2 Mngt per primary team # Pancytopenia On regular every 6 months PRBC and platelet transfusion)
[2021-10-12] MEDS ORDERED: MAGNESIUM SULFATE 1 gm IVPB 1 GM/100 ML BAG IV ONE (09:19)
[2021-10-12 09:20] LABS: Blood Morphology Comment NOT SEEN (NOT SEEN); Platelet Estimate DECR; White Blood Cell Scan OK (OK)
[2021-10-12] MEDS ORDERED: POTASSIUM CL 40 MEQ in NA CHLORIDE 0.9% 500 ML IV SCH (10:00)
[2021-10-12] MEDS: VANCOMYCIN 1.75 GM in NA CHLORIDE 0.9% 500 ML IVPB SCH (13:34)
[2021-10-12] MEDS: TERAZOSIN HCL 5 MG CAP PO SCH (21:06)
[2021-10-12] MEDS: LOPERAMIDE HCL 2 MG CAPSULE PO PRN (21:07)
[2021-10-12] MEDS: FINASTERIDE 5 MG TAB PO SCH (21:08)
[2021-10-13 04:44] LABS: Absolute Lymphocytes (CBC) 0.4 K/uL (0.7-4.9); Hematocrit 29.3 % (39.6-49.0); Lymphocytes % 20.8 % (15.3-44.8); MPV 7.8 fL (7.6-11.3); RBC Red Blood Cell Count 3.42 M/uL (4.33-5.43)
[2021-10-13 04:59] LABS: Albumin 2.6 g/dL (3.4-5.0); Bilirubin Total 0.7 mg/dL (0.2-1.0); Magnesium 1.6 mg/dL (1.8-2.4); Potassium 3.4 mmol/L (3.5-5.1); Protein, Total 6.7 g/dL (6.4-8.2)
[2021-10-13] MEDS ORDERED: MAGNESIUM SULFATE 1 gm IVPB 1 GM/100 ML BAG IV ONE (06:00)
--- NOTE | 2021-10-13 06:14 | P.PN ---
Date of Service: 10/13/21 Subjective: improving R foot less erythematous R foot continues with pain ambulating to bathroom ROS: 10 point ROS as noted above, otherwise negative Physical exam GEN: Alert, oriented, NAD HEENT: Normal conjunctiva, sclera anicteric CV: Regular rate and rhythm, RLE: trace 1+ pedal edema to ankle Pulm: Nonlabored respirations on room air Integumentary: R dorsum of foot / ankle: erythema, mild tenderness, induration Neuro: Normal speech, normal affect Problem List Sepsis secondary to pyelonephritis, R foot Cellulitis GPC bacteremia leukopenia, thrombocytopenia, chronic watery diarrhea NIDDM2 h/o liver cirrhosis SAM staph capitis and epidermidis in blood cultures; possible skin contaminant, possible true infection; pt with neutropenia /immunosuppressed R foot cellulitis improving; CT (10/08): cellulitis noted; no abscess ID consulted, recommended changed rocephin to vanc/cefepime on 10/11, felt R foot minimally improving PICC line placed 10/10 s/p platelets x 2; tolerated transfusion well, premedicated - steroids caused hyperglycemia nephro consulted; renal function stable; diuresis scaled back as continues to improve h/o gastric varices and melena, occult +, no melena, hgb stable continue BB for portal hypertension; Pain meds PRN diarrhea since hospitalization. waxes/wanes; c.diff negative, started imodium 10/12, stool culture pending Code: full Dispo: SNF, IV antibiotics, dc Thursday, pending auth as continues to improve, may be able to discharge home Time Spent Managing Pts Care (In Minutes): 35
[2021-10-13] MEDS: LEVOTHYROXINE SOD 0.05 MG TABLET PO SCH (06:20)
--- NOTE | 2021-10-13 07:35 | P.PN ---
Subjective Date of Service: 10/13/21 Chief Complaint: Pyelo, Sepsis, Cellulitus RLE Subjective: Other (No urinary complaints. C/o pain & redness on R ankle.) Physical Examination - Vital Signs Temperature: 98.6 F Blood Pressure: 142/65 Pulse: 78 Respirations: 16 Pulse Ox (%): 95 - Physical Exam General: In no apparent distress HEENT: Atraumatic, Normocephalic Neck: Supple, JVD not distended Respiratory: Other (symmetric chest expansion) Cardiovascular: No rubs, No murmurs Gastrointestinal: Soft and benign, No rebound, Distended Musculoskeletal: No clubbing Integumentary: No warmth Neurological: Normal speech, Normal tone Urinary: Other (No bladder distention) External genitalia: Deferred Rectal: Deferred Assessment And Plan - Plan # SAM 2/2 ATN + bilateral pyelonephritis + ramipril use SCr at baseline is 0.9-1.1 as of 10/07/2021, increased to 1.5, improved to 1.3-1.4 Urinalysis +bld, + hematuria, no pyuria, S.G. elevated Urine chem non-prerenal +Mild proteinuria, 0.5g on random UPCR Abx as below Ramipril on hold, avoid ACEI or ARB [place] po fluid intake Monitor renal panel # Sepsis secondary to acute bilateral pyelonephritis, R foot Cellulitis CT abdomen pelvis showed bilateral paranephritic stranding concerning for pyelonephritis Abx per ID # BPH Switched Terazosin to qHS Started on Finasteride qHS # Diarrhea F/u c diff testing # Pseudohyponatremia D/t hyperglycemia Glycemic control [place] po fluid intake # HypoMg Mg IV repletion today # HypoK KCl IV repletion today # JORDAN liver cirrhosis Decompensated, +portal Htn Cont lasix + mitesh Low Na diet < 2g/d [place] po fluid intake as above # DM2 Mngt per primary team # Pancytopenia On regular every 6 months PRBC and platelet transfusion
[2021-10-13] MEDS: glipiZIDE 5 MG TAB PO SCH (08:21)
[2021-10-13] MEDS: nadoloL 40 MG TAB PO SCH (08:21)
[2021-10-13] MEDS: FUROSEMIDE 40 MG TABLET PO SCH ×2 (08:22→16:32)
[2021-10-13] MEDS: SPIRONOLACTONE 25 MG TABLET PO SCH ×2 (08:22→21:17)
[2021-10-13] MEDS: INSULIN GLARGINE 100 UNIT/ML SQ SCH (08:23)
[2021-10-13] MEDS: CEFEPIME 1 GM in NA CHLORIDE 0.9% 100 ML IV SCH ×2 (08:23→21:16)
[2021-10-13] MEDS: INSULIN -REGULAR HUMAN 50 UNIT/0.5 ML ML SQ SCH ×4 (08:23→21:16)
[2021-10-13] MEDS: LACTOBACILLUS/ACIDOPHILUS TAB PO SCH ×2 (08:24→21:17)
[2021-10-13] MEDS: LOPERAMIDE HCL 2 MG CAPSULE PO PRN ×2 (08:25→21:59)
[2021-10-13] MEDS ORDERED: POTASSIUM CL 40 MEQ in NA CHLORIDE 0.9% 500 ML IV SCH (10:00)
[2021-10-13] MEDS: VANCOMYCIN 1.75 GM in NA CHLORIDE 0.9% 500 ML IVPB SCH (13:24)
[2021-10-13] MEDS: TERAZOSIN HCL 5 MG CAP PO SCH (21:17)
[2021-10-13] MEDS: FINASTERIDE 5 MG TAB PO SCH (21:17)
[2021-10-14 05:02] LABS: Absolute Lymphocytes (CBC) 0.6 K/uL (0.7-4.9); Lymphocytes % 20.6 % (15.3-44.8); MPV 7.6 fL (7.6-11.3); RBC Red Blood Cell Count 3.48 M/uL (4.33-5.43)
[2021-10-14 05:18] LABS: Albumin 2.7 g/dL (3.4-5.0); Bilirubin Total 0.7 mg/dL (0.2-1.0); Magnesium 1.5 mg/dL (1.8-2.4); Potassium 3.5 mmol/L (3.5-5.1); Protein, Total 6.6 g/dL (6.4-8.2)
[2021-10-14] MEDS: LEVOTHYROXINE SOD 0.05 MG TABLET PO SCH (05:59)
--- NOTE | 2021-10-14 06:17 | P.PN ---
Date of Service: 10/14/21 Subjective: improving 5 episodes of diarrhea ROS: 10 point ROS as noted above, otherwise negative Physical exam GEN: Alert, oriented, NAD HEENT: Normal conjunctiva, sclera anicteric CV: Regular rate and rhythm, RLE: trace 1+ pedal edema to ankle Pulm: Nonlabored respirations on room air Integumentary: R dorsum of foot / ankle: erythema, mild tenderness, induration Neuro: Normal speech, normal affect Problem List Sepsis secondary to pyelonephritis, R foot Cellulitis GPC bacteremia leukopenia, thrombocytopenia, chronic watery diarrhea NIDDM2 h/o liver cirrhosis SAM staph capitis and epidermidis in blood cultures; possible skin contaminant, possible true infection; pt with neutropenia /immunosuppressed R foot cellulitis improving; CT (10/08): cellulitis noted; no abscess ID consulted, recommended changed rocephin to vanc/cefepime on 10/11, felt R foot minimally improving - dc cefepime 10/14 - may be contributing to diarrhea PICC line placed 10/10 s/p platelets x 2; tolerated transfusion well, premedicated - steroids caused hyperglycemia nephro consulted; renal function stable; diuresis scaled back as continues to improve h/o gastric varices and melena, occult +, no melena, hgb stable continue BB for portal hypertension; Pain meds PRN diarrhea since hospitalization. waxes/wanes; c.diff negative, started imodium 10/12, stool culture pending continue on vanc Code: full Dispo: home, IV Vancomycin Time Spent Managing Pts Care (In Minutes): 35
[2021-10-14] MEDS: INSULIN -REGULAR HUMAN 50 UNIT/0.5 ML ML SQ SCH ×4 (07:30→21:01)
[2021-10-14] MEDS ORDERED: Magnesium Sulfate 2gm IVPB 2 G/50 ML BAG IV ONE (09:00)
[2021-10-14] MEDS ORDERED: CEFEPIME 1 GM/VIAL ONE (09:27)
[2021-10-14] MEDS: CEFEPIME 1 GM in NA CHLORIDE 0.9% 100 ML IV SCH (09:33)
[2021-10-14] MEDS: LOPERAMIDE HCL 2 MG CAPSULE PO PRN ×2 (09:34→21:00)
[2021-10-14] MEDS: FUROSEMIDE 40 MG TABLET PO SCH ×2 (09:34→17:01)
[2021-10-14] MEDS: LACTOBACILLUS/ACIDOPHILUS TAB PO SCH ×2 (09:34→21:00)
[2021-10-14] MEDS: glipiZIDE 5 MG TAB PO SCH (09:34)
[2021-10-14] MEDS: SPIRONOLACTONE 25 MG TABLET PO SCH ×2 (09:34→21:01)
[2021-10-14] MEDS: nadoloL 40 MG TAB PO SCH (09:35)
[2021-10-14] MEDS: INSULIN GLARGINE 100 UNIT/ML SQ SCH (09:35)
[2021-10-14] MEDS ORDERED: NA CHLORIDE 0.9% 100 ML ONE (09:36)
[2021-10-14] MEDS: VANCOMYCIN 1.75 GM in NA CHLORIDE 0.9% 500 ML IVPB SCH (13:43)
--- NOTE | 2021-10-14 16:20 | P.PN ---
Subjective Date of Service: 10/14/21 Chief Complaint: Pyelo, Sepsis, Cellulitus RLE Patient seen and examined at bedside, still having bad diarrhea. C. difficile negative. leukopenia improving. Review of Systems 10-point ROS is otherwise unremarkable Physical Examination - Vital Signs Temperature: 97.7 F Blood Pressure: 114/55 Pulse: 68 Respirations: 18 Pulse Ox (%): 96 - Studies Laboratory Last Values WBC 3.0 K/uL (4.3-10.9) L 10/02/21 20:21 RBC 4.31 M/uL (4.33-5.43) L 10/02/21 20:21 Hgb 12.6 g/dL (13.6-17.9) L 10/02/21 20:21 Hct 38.6 % (39.6-49.0) L 10/02/21 20:21 MCV 89.5 fL (80-100) 10/02/21 20:21 MCH 29.2 pg (27.0-35.0) 10/02/21 20:21 MCHC 32.6 g/dL (32.0-36.0) 10/02/21 20:21 RDW 17.9 % (12.1-15.2) H 10/02/21 20:21 Plt Count 24 K/uL (152-406) L* 10/02/21 20:21 MPV 8.2 fL (7.6-11.3) 10/02/21 20:21 Neutrophils % 82.7 % (41.7-73.7) H 10/02/21 20:21 Lymphocytes % 11.1 % (15.3-44.8) L 10/02/21 20:21 Monocytes % 5.9 % (3.3-12.3) 10/02/21 20:21 Eosinophils % 0.1 % (0-4.4) 10/02/21 20:21 Basophils % 0.2 % (0-1.3) 10/02/21 20:21 Absolute Neutrophils 2.5 K/uL (1.8-8.0) 10/02/21 20:21 Absolute Lymphocytes 0.3 K/uL (0.7-4.9) L 10/02/21 20:21 Absolute Monocytes 0.2 K/uL (0.1-1.3) 10/02/21 20:21 Absolute Eosinophils 0.0 K/uL (0-0.5) 10/02/21 20:21 Absolute Basophils 0.0 K/uL (0-0.5) 10/02/21 20:21 Sodium 132 mmol/L (136-145) L 10/02/21 20:21 Potassium 4.0 mmol/L (3.5-5.1) 10/02/21 20:21 Chloride 99 mmol/L (98-107) 10/02/21 20:21 Carbon Dioxide 24 mmol/L (21-32) 10/02/21 20:21 Anion Gap 13.0 mEq/L (5.0-15.0) 10/02/21 20:21 BUN 21 mg/dL (7-18) H 10/02/21 20:21 Creatinine 1.48 mg/dL (0.55-1.3) H 10/02/21 20:21 Est GFR (CKD-EPI) 50 ml/min (=/>90) L 10/02/21 20:21 Glucose 185 mg/dL (74-106) H 10/02/21 20:21 Lactic Acid 5.2 mmol/L (0.4-2.0) H* 10/02/21 22:21 Calcium 9.0 mg/dL (8.5-10.1) 10/02/21 20:21 Total Bilirubin 2.4 mg/dL (0.2-1.0) H 10/02/21 20:21 AST 24 U/L (15-37) 10/02/21 20:21 ALT 25 U/L (12-78) 10/02/21 20:21 Alkaline Phosphatase 63 U/L (45-117) 10/02/21 20:21 Serum Total Protein 7.7 g/dL (6.4-8.2) 10/02/21 20:21 Albumin 3.4 g/dL (3.4-5.0) 10/02/21 20:21 Globulin 4.3 g/dL (2.3-3.5) H 10/02/21 20:21 Albumin/Globulin Ratio 0.8 (1.1-1.8) L 10/02/21 20:21 Lipase 108 U/L (73-393) 10/02/21 20:21 Urine pH 5.5 (5.0-7.0) 10/02/21 20:16 Ur Specific Wheeler >=1.030 (1.005-1.030) 10/02/21 20:16 Glucose (UA)(Auto) Negative (Negative) 10/02/21 20:16 Urine Ketones Negative (Negative) 10/02/21 20:16 Urine Blood 3+ (Negative) H 10/02/21 20:16 Urine Nitrite Positive (Negative) H 10/02/21 20:16 Ur Leukocyte Esterase Negative (Negative) 10/02/21 20:16 Urine RBC 5-10 /HPF (NONE SEEN) H 10/02/21 20:15 Urine WBC <5 /HPF (<5) 10/02/21 20:15 Ur Squamous Epith Cells <5 /HPF (NONE SEEN) 10/02/21 20:15 Urine Bacteria <20 /HPF (NONE SEEN) 10/02/21 20:15 Urine Mucus 2+ /HPF (NONE SEEN) 10/02/21 20:15 Urine Culture Reflexed Not needed 10/02/21 20:15 Urine Total Protein 3+ (Negative) H 10/02/21 20:16 SARS-CoV-2 Rap RNA(RT-PCR) Negative (NEGATIVE) 10/02/21 19:48 Assessment And Plan - Plan Physical exam: General: Alert, Obese HEENT: Atraumatic, Normocephalic Neck: Supple, 2+ carotid pulse no bruit Respiratory: Clear to auscultation bilaterally, Normal air movement Cardiovascular: Normal pulses, Regular rate/rhythm Capillary refill: <2 Seconds Gastrointestinal: Normal bowel sounds, Distended Musculoskeletal: No clubbing Integumentary: Other (Right foot/ankle cellulitis: 4+ pedal edema, purple/red discoloration centered around ankle. No obvious signs of trauma such as open skin lesions/cuts.) Conclusions/Impression: Antibiotics: vancomycin: 10/11current Cefepime: 10/11-10/14 Rocephin: Doxycycline:10/10-current Vancomycin: Levaquin: 10/04-10/07 Assessment/plan Bilateral pyelonephritis CT abdomen pelvis showed bilateral paranephritic stranding concerning for pyel onephritis Urine analysis nitrite, urine culture showed mixed temo. Recommend continuing with Rocephin to complete a 14-day course CoNs bacteremia -Blood cultures obtained on 10/02 grew staph capitis in 2 out of 2 bottles and staph epi in 2 out of 2 bottles Repeat blood cultures obtained on 10/04 showed no growth. Tentative antibiotic completion date of 10/18. Right arm PICC line placed. -Continue vancomycin Right foot/ankle cellulitis -venous Doppler negative for DVT. -CT findings consistent with cellulitis. Continue vancomycin at this time. Diabetes Continue sliding scale insulin Pancytopenia -Dr. Latif following -Patient states that he has never been diagnosed with neutropenia in the past. Does suffer from thrombocytopenia/anemia. States he gets infusions every 3 to 6 months. -Absolute neutrophil count 1.1, minimal infectious risk. Patient is on isolation precautions. -continue to monitor closely Liver cirrhosis -Medical management per primary team Diarrhea -C. difficile test pending -Isolation contact in place Plan of care discussed Dr. Harris Thank you for consultation
--- NOTE | 2021-10-14 19:19 | RAD REPORT ---
EXAM DESCRIPTION: MRI - Ankle Right Wo Cont - 10/14/2021 6:53 pm CLINICAL HISTORY: cellulitis Ankle pain and swelling COMPARISON: No comparisons FINDINGS: Large posterior and small plantar calcaneal spur is present. There is mild thickening line ar elevated signal the distal Achilles tendon suggesting Achilles tendinitis. Moderate skin thickening, subcutaneous edema and fluid is present adjacent to the lateral malleolus. No underlying osteomyelitis. No abscess is seen. The skin subcutaneous tissues are thickened and edematous throughout the dorsum of the forefoot as we ll. Anterior ankle tendons are thickened with mild fluid suggesting tenosynovitis. IMPRESSION: No osteomyelitis or localized abscess seen. Significant edematous soft tissue noted particularly adjacent to the lateral malleolus and extending along the dorsum of the mid and forefoot. This most likely is related to cellulitis/infection. Anterior ankle tenosynovitis. Distal Achilles tendinitis with large calcaneal spurs.
[2021-10-14] MEDS ORDERED: MAGNESIUM SULFATE 1 gm IVPB 1 GM/100 ML BAG IV ONE (20:49)
[2021-10-14] MEDS: FINASTERIDE 5 MG TAB PO SCH (21:00)
[2021-10-14] MEDS: TERAZOSIN HCL 5 MG CAP PO SCH (21:01)
--- NOTE | 2021-10-15 03:08 | PN ---
Date of Progress Note: 10/14/2021 Chief Complaint: Cellulitis of right lower extremity, sepsis, and pyelonephritis. Review of Systems: The patient denies complaints today. Denies PND or orthopnea. Physical Examination: Lungs: Clear to auscultation bilaterally. Heart: S1, S2. Abdomen: Soft, benign. Extremities: No edema. Assessment And Plan: 1.Acute kidney injury secondary to acute tubular necrosis, complicated by an CHEMO inhibitor effect. The patient was found to have bilateral pyelonephritis. He is on antibiotic. Workup showed mild pro teinuria. Protein creatinine ratio was 0.5 on random test. Ramipril is on hold. Plan is to avoid A CE inhibitor and angiotensin-receptor stephanie due to the fact that the patient has acute kidney injur y. 2.Sepsis due to bilateral pyelonephritis and right foot cellulitis. CT scan of the abdomen and pelv is showed perinephric stranding concerning for pyelonephritis. The patient is on antibiotics and fol lowed by Infectious Disease. 3.Pseudohyponatremia due to suboptimal glycemic control. The patient needs workup to screen for hyp erlipidemia. 4.Liver cirrhosis decompensated with portal hypertension. The patient will continue Lasix and mitesh nolactone. Avoid CHEMO inhibitor and angiotensin-receptor stephanie in this particular patient. 5.Diabetes mellitus, per Primary Team. Monitor hemoglobin A1c and proteinuria. AYO/BARBER Voice ID: [id number] Report ID: [id number]
[2021-10-15 04:27] LABS: Absolute Lymphocytes (CBC) 0.5 K/uL (0.7-4.9); Hematocrit 30.3 % (39.6-49.0); Lymphocytes % 19.7 % (15.3-44.8)
[2021-10-15] MEDS: LEVOTHYROXINE SOD 0.05 MG TABLET PO SCH (06:06)
[2021-10-15 06:16] LABS: Albumin 2.7 g/dL (3.4-5.0); Bilirubin Total 0.8 mg/dL (0.2-1.0); Magnesium 1.9 mg/dL (1.8-2.4); Potassium 3.3 mmol/L (3.5-5.1); Protein, Total 6.7 g/dL (6.4-8.2)
[2021-10-15] MEDS: INSULIN -REGULAR HUMAN 50 UNIT/0.5 ML ML SQ SCH ×2 (07:30→11:30)
[2021-10-15] MEDS: INSULIN GLARGINE 100 UNIT/ML SQ SCH (09:28)
[2021-10-15] MEDS: nadoloL 40 MG TAB PO SCH (09:28)
[2021-10-15] MEDS: LACTOBACILLUS/ACIDOPHILUS TAB PO SCH (09:28)
[2021-10-15] MEDS: FUROSEMIDE 40 MG TABLET PO SCH (09:28)
[2021-10-15] MEDS: glipiZIDE 5 MG TAB PO SCH (09:29)
[2021-10-15] MEDS: SPIRONOLACTONE 25 MG TABLET PO SCH (09:29)
[2021-10-15] MEDS: LOPERAMIDE HCL 2 MG CAPSULE PO PRN (09:29)
[2021-10-15 11:32] VITALS: O2SAT 95
[2021-10-15] MEDS: VANCOMYCIN 1.75 GM in NA CHLORIDE 0.9% 500 ML IVPB SCH (13:00)
--- NOTE | 2021-10-15 14:00 | P.DS ---
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: 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: without 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 He also reported swelling and pain to his right foot. Work-up in the ED revealed WBC 3, hemoglobin 12.6, RBC 4, platelets 24, sodium 132, creatinine 1.48, BUN 21, lactic acid 5.2, urine positive for UTI. CT abdomen pelvis showed moderate perinephric stranding bilaterally suggesting pyelonephritis. Foot x-ray and venous ultrasound negative. Chest x-ray showed mildly prominent interstitial markings without consolidation. He was given Rocephin, clindamycin, and 2 L of fluid in the ED. He reports that his baseline platelet count is around 30-50. Per chart review, last transfusion was 2 months prior and patient reported a reaction requiring hospitalization. Patient admitted for further management. Hospital Course: Diagnosis Sepsis secondary to pyelonephritis, R foot Cellulitis GPC bacteremia leukopenia, thrombocytopenia, chronic watery diarrhea NIDDM2 h/o liver cirrhosis SAM Hospital course Patient admitted to the medical floor and treated with Lasix for pedal edema and started on antibiotics for cellulitis. He developed diarrhea. Stool for C. difficile was negative. Patient treated with antidiarrhea medications staph capitis and epidermidis in blood cultures; possible skin contaminant, possible true infection; pt with neutropenia /immunosuppressed. Infectious disease consulted to assist with management R foot cellulitis improving; CT (10/08): cellulitis noted; no abscess ID recommended changed rocephin to vanc/cefepime on 10/11, antibiotics later scaled down to IV vancomycin. PICC line placed 10/10 after platelet transfusion He was briefly on steroids which caused steroid-induced hyperglycemia. nephro consulted; renal function was stable; Lasix transition to oral 60 mg twice daily h/o gastric varices and melena, occult +, had 1 episode of bloody bowel movement, hgb was stable Placed on nadolol for portal hypertension. Infectious disease recommend at least 2 weeks of IV vancomycin. MRI of the right ankle showed no osteomyelitis but reported tendinitis. Patient already on antibiotics. His leg edema, erythema and and pain have improved significantly. Patient deemed stable for discharge to continue outpatient IV antibiotics. Vital Signs/Physical Exam: Temp Pulse Resp BP Pulse Ox 98 F 72 16 141/63 H 96 10/15/21 12:00 10/15/21 12:00 10/15/21 12:00 10/15/21 12:00 10/15/21 12:00 General: Alert, In no apparent distress, Oriented x3 HEENT: Mucous membr. moist/pink Neck: JVD not distended Respiratory: Clear to auscultation bilaterally, Normal air movement Cardiovascular: No edema, Regular rate/rhythm, Normal S1 S2 Gastrointestinal: Normal bowel sounds, Soft and benign, Non-distended Musculoskeletal: No swelling, Erythema (Mild erythema under anterior portion of the right ankle) Neurological: Normal strength at 5/5 x4 extr Laboratory Data at Discharge: WBC 2.5 K/uL (4.3-10.9) L 10/15/21 03:54 Hgb 10.7 g/dL (13.6-17.9) L 10/15/21 03:54 Hct 30.3 % (39.6-49.0) L 10/15/21 03:54 Plt Count 38 K/uL (152-406) L* 10/15/21 03:54 Sodium 136 mmol/L (136-145) 10/15/21 03:54 Potassium 3.3 mmol/L (3.5-5.1) L 10/15/21 03:54 BUN 21 mg/dL (7-18) H 10/15/21 03:54 Creatinine 1.50 mg/dL (0.55-1.3) H 10/15/21 03:54 Glucose 158 mg/dL (74-106) H 10/15/21 03:54 Phosphorus 2.1 mg/dL (2.5-4.9) L 10/04/21 03:45 Magnesium 1.9 mg/dL (1.8-2.4) 10/15/21 03:54 Total Bilirubin 0.8 mg/dL (0.2-1.0) 10/15/21 03:54 AST 23 U/L (15-37) 10/15/21 03:54 ALT 25 U/L (12-78) 10/15/21 03:54 Alkaline Phosphatase 98 U/L (45-117) 10/15/21 03:54 Lipase 108 U/L (73-393) 10/02/21 20:21 Home Medications: Glipizide [Glipizide ER] 10 mg PO DAILY 03/13/14 Metformin HCl [Glucophage] 1,000 mg PO BID 03/13/14 Terazosin HCl [Hytrin] 10 mg PO BID 03/13/14 ramipriL [Altace*] 5 mg PO DAILY WITH BREAKFAST 03/13/14 Levothyroxine [Synthroid*] 50 mcg PO [id number] 08/23/19 Albuterol Sulfate [Proair Respiclick] 1 inh PO DAILY 07/23/21 Fluticasone/Vilanterol [Breo Ellipta 200-25 Mcg INH] 1 inh PO DAILY 07/23/21 Omeprazole [Prilosec] 40 mg PO DAILY 07/23/21 Finasteride [Proscar*] 5 mg PO BEDTIME #30 tab 10/15/21 Furosemide [Lasix] 60 mg PO BID #180 tablet 10/15/21 Loperamide [Imodium*] 2 mg PO Q4H PRN #30 cap 10/15/21 Spironolactone [Aldactone] 50 mg PO DAILY #30 tablet 10/15/21 nadoloL [Nadolol] 20 mg PO DAILY #30 tablet 10/15/21 New Medications: Spironolactone [Aldactone] 50 mg PO DAILY #30 tablet Loperamide [Imodium*] 2 mg PO Q4H PRN #30 cap PRN Reason: Diarrhea Furosemide [Lasix] 60 mg PO BID #180 tablet nadoloL [Nadolol] 20 mg PO DAILY #30 tablet Finasteride [Proscar*] 5 mg PO BEDTIME #30 tab Diet: ADA Activity: Ad robby Followup: Diaz Martinez DO [Primary Care Provider] - 1 Week Time spent managing pt's care (in minutes): 38
--- NOTE | 2021-10-15 15:02 | P.PN ---
Subjective Date of Service: 10/15/21 Chief Complaint: Pyelo, Sepsis, Cellulitus RLE Patient seen and examined at bedside, MRI imaging of right ankle showed anterior tenosynovitis with edematous soft tissue. Continue vancomycin until 10/18. Review of Systems 10-point ROS is otherwise unremarkable Physical Examination - Vital Signs Temperature: 98 F Blood Pressure: 141/63 Pulse: 72 Respirations: 16 Pulse Ox (%): 96 - Studies Laboratory Tests 10/02/21 10/02/21 10/02/21 19:48 20:15 20:16 WBC RBC Hgb Hct MCV MCH MCHC RDW Plt Count MPV Neutrophils % Lymphocytes % Monocytes % Eosinophils % Basophils % Absolute Neutrophils Absolute Lymphocytes Absolute Monocytes Absolute Eosinophils Absolute Basophils Sodium Potassium Chloride Carbon Dioxide Anion Gap BUN Creatinine Est GFR (CKD-EPI) Glucose Lactic Acid Calcium Total Bilirubin AST ALT Alkaline Phosphatase Serum Total Protein Albumin Globulin Albumin/Globulin Ratio Lipase Urine pH 5.5 Ur Specific [place] >=1.030 Glucose (UA)(Auto) Negative Urine Ketones Negative Urine Blood 3+ H Urine Nitrite Positive H Ur Leukocyte Esterase Negative Urine RBC 5-10 H Urine WBC <5 Ur Squamous Epith Cells <5 Urine Bacteria <20 Urine Mucus 2+ Urine Culture Reflexed Not needed Urine Total Protein 3+ H SARS-CoV-2 Rap RNA(RT-PCR) Negative 10/02/21 10/02/21 10/02/21 20:21 20:21 22:21 WBC 3.0 L RBC 4.31 L Hgb 12.6 L Hct 38.6 L MCV 89.5 MCH 29.2 MCHC 32.6 RDW 17.9 H Plt Count 24 L* MPV 8.2 Neutrophils % 82.7 H Lymphocytes % 11.1 L Monocytes % 5.9 Eosinophils % 0.1 Basophils % 0.2 Absolute Neutrophils 2.5 Absolute Lymphocytes 0.3 L Absolute Monocytes 0.2 Absolute Eosinophils 0.0 Absolute Basophils 0.0 Sodium 132 L Potassium 4.0 Chloride 99 Carbon Dioxide 24 Anion Gap 13.0 BUN 21 H Creatinine 1.48 H Est GFR (CKD-EPI) 50 L Glucose 185 H Lactic Acid 5.2 H* Calcium 9.0 Total Bilirubin 2.4 H AST 24 ALT 25 Alkaline Phosphatase 63 Serum Total Protein 7.7 Albumin 3.4 Globulin 4.3 H Albumin/Globulin Ratio 0.8 L Lipase 108 Urine pH Ur Specific [place] Glucose (UA)(Auto) Urine Ketones Urine Blood Urine Nitrite Ur Leukocyte Esterase Urine RBC Urine WBC Ur Squamous Epith Cells Urine Bacteria Urine Mucus Urine Culture Reflexed Urine Total Protein SARS-CoV-2 Rap RNA(RT-PCR) Assessment And Plan - Plan Physical exam: General: Alert, Obese HEENT: Atraumatic, Normocephalic Neck: Supple, 2+ carotid pulse no bruit Respiratory: Clear to auscultation bilaterally, Normal air movement Cardiovascular: Normal pulses, Regular rate/rhythm Capillary refill: <2 Seconds Gastrointestinal: Normal bowel sounds, Distended Musculoskeletal: No clubbing Integumentary: Other (Right foot/ankle cellulitis: 4+ pedal edema, purple/red discoloration centered around ankle. No obvious signs of trauma such as open skin lesions/cuts.) Conclusions/Impression: Antibiotics: vancomycin: 10/11current Cefepime: 10/11-10/14 Rocephin: Doxycycline:10/10-10/11 Vancomycin: Levaquin: 10/04-10/07 Assessment/plan Bilateral pyelonephritis CT abdomen pelvis showed bilateral paranephritic stranding concerning for pyelonephritis Urine analysis positive for nitrites, urine culture showed mixed temo. -Completed course of antibiotic therapy CoNS bacteremia -Blood cultures obtained on 10/02 grew staph capitis in 2/2 bottles and staph epi in 2/2 bottles Repeat blood cultures obtained on 10/04 showed no growth. Tentative antibiotic completion date of 10/18. Right arm PICC line placed. -Continue vancomycin Right foot/ankle cellulitis -venous Doppler negative for DVT. -CT findings consistent with cellulitis. MRI showed anterior ankle tenosynovitis with edematous soft tissue, continue vancomycin at this time. Diabetes Continue sliding scale insulin Pancytopenia -Dr. Latif following -Patient states that he has never been diagnosed with neutropenia in the past. Does suffer from thrombocytopenia/anemia. States he gets infusions every 3 to 6 months. -Absolute neutrophil count 1.1, minimal infectious risk. Patient is on isolation precautions. -continue to monitor closely Liver cirrhosis -Medical management per primary team Diarrhea -C. difficile test negative -Continue probiotic Plan of care discussed Dr. Harris Thank you for consultation
--- NOTE | 2021-10-15 15:59 | PN ---
Date of Progress Note: 10/15/2021 Subjective: The patient was admitted with acute kidney injury, pyelonephritis, urosepsis. The patient was treated. Kidney function plateaued. The patient is feeling better. Physical Examination: Vital Signs: Blood pressure 141/63, pulse of 72, afebrile. The patient had good urine output of 2800. Chest: Clear to auscultation. Heart: S1, S2 regular. Abdomen: Soft, nontender. Extremities: No edema. Neurologic: Alert. No focality. Laboratory Data: Sodium 136, potassium 3.3, bicarb 25, BUN 21, creatinine 1.5, GFR 49, calcium 8.2, magnesium 1.9, albumin 2.7. Corrected calcium is 9. WBC 2.5, H and H 10.7/30.3. Current Medications: The patient on include; 1. Vancomycin. 2. Nadolol. 3. Spironolactone. 4. Tylenol. 5. Furosemide. 6. Glipizide. 7. Levothyroxine. 8. Magnesium oxide. Assessment And Plan: 1. Acute kidney injury secondary to poor perfusion, ATN, superimposed with CHEMO inhibitor, superimposed with obstructive uropathy, proteinuric, nonnephrotic. Superimposed with toxic ATN secondary to urinary tract infection. The patient plateaued, nonoliguric. No hyperkalemia or acidosis. I am going to continue current management. The patient looked to me euvolemic. The patient cleared from the Renal standpoint for discharge planning to follow up in the office in 2-3 weeks. 2. Bilateral pyelonephritis with right foot cellulitis. The patient was started on antibiotic. Planned to be discharged on the vancomycin. We will follow up vanc trough. 3. Pseudohyponatremia, recovered, resolved. 4. Liver cirrhosis, decompensated, back to baseline. 5. Diabetes, stable. Continue current treatment. 6. Pyelonephritis. Continue current antibiotic. 7. Cellulitis. Continue vancomycin. We will follow up vanc trough. The patient cleared from the Renal standpoint for discharge planning to follow up in the office in 2-3 weeks. Time spent examining the patient [id number], reviewing the data of lab and radiology discussing the case with the patient reviewing the case with the steam presser including nursing discussing the case with the hospitalist 35-minute CHARLOTTE/BARBER Voice ID: [id number] Report ID: [id number] MTDD
[2021-10-15 16:04] VITALS: BP 151/63; TEMP 97.5
[2021-10-15] MEDS: ONDANSETRON 4 MG/2 ML VIAL IV PRN (16:20)
== END 2021-10-15 17:24 | disposition home or self-care (01) | DRG 871 ==
LOC: ER 19:16 → ERHOLD 10-03 02:17 → 2ND 10-03 13:34
PROVIDERS: ADMIT Internal Medicine; ATTEND Internal Medicine
PROC: 30243R1 Transfusion of Nonautologous Platelets into Central Vein, Percutaneous Approach (ICD-10-PCS; principal; 2021-10-10)
PROC: 02HV33Z Insertion of Infusion Device into Superior Vena Cava, Percutaneous Approach (ICD-10-PCS; 2021-10-10)
PROC: 3E04329 Introduction of Other Anti-infective into Central Vein, Percutaneous Approach (ICD-10-PCS; 2021-10-10)
DX: A41.1 Sepsis due to other specified staphylococcus (principal); N17.0 Acute kidney failure with tubular necrosis; N10 Acute pyelonephritis; L03.115 Cellulitis of right lower limb; R18.8 Other ascites; K92.1 Melena; D61.818 Other pancytopenia; K76.6 Portal hypertension; I85.10 Secondary esophageal varices without bleeding; R65.20 Severe sepsis without septic shock; E11.22 Type 2 diabetes mellitus with diabetic chronic kidney disease; E11.65 Type 2 diabetes mellitus with hyperglycemia; I12.9 Hypertensive chronic kidney disease with stage 1 through stage 4 chronic kidney disease, or unspecified chronic kidney disease; N18.31 Chronic kidney disease, stage 3a; Z79.4 Long term (current) use of insulin; J45.909 Unspecified asthma, uncomplicated; K75.81 Nonalcoholic steatohepatitis (NASH); K21.9 Gastro-esophageal reflux disease without esophagitis; E66.9 Obesity, unspecified; Z68.30 Body mass index [BMI] 30.0-30.9, adult; E83.42 Hypomagnesemia; N40.0 Benign prostatic hyperplasia without lower urinary tract symptoms; E87.6 Hypokalemia; R19.7 Diarrhea, unspecified; D69.6 Thrombocytopenia, unspecified; D72.819 Decreased white blood cell count, unspecified
CPT/HCPCS: 36415; 36569; 71045; 73700; 74176; 80048; 80053; 80202; 81003; 81015; 82274; 82550; 82570; 82947; 83605; 83631; 83690; 83735; 83880; 83935; 84100; 84132; 84145; 84156; 84300; 85014; 85018; 85025; 85027; 85049; 86900; 86901; 87040; 87045; 87046; 87077; 87086; 87088; 87186; 87205; 87324; 87449; 87804; 89055; 93005; 93971; 96365; 96366; 96367; 96375; 97116; 97161; 97165; 97530; 99285; C9113; J0692; J0696; J1200; J1720; J1815; J1940; J2270; J2405; J3370; J3475; J3480; J7030; J7040; J7050; P9035; P9073; U0003

== ENCOUNTER 2021-10-17 12:33 | Emergency (ER) | payer OTHER ==
--- OUTSIDE RECORDS SUMMARY | 2021-10-17 12:40 | XMS REPORT | Continuity of Care Document ---
:1950 Author Organization [facility] t Address [address] Patel [address] [place] [id number] Care Team Providers Name Role Phone Guanaco [...] Pearlan s 00:00: d 00 [facility] Sulfa Adverse Active Info Not Common Reaction Available Spiri t [facility] Medications Ordered Filled Start Stop Current Ordering Indication Dosage Frequency Signature Comments Components Source Medication Medication Date Date Medication? Clinician (SIG) Name Name Albuterol Albuterol 2019- Yes Diaz 2 puffs as Common Sulfate HFA Sulfate HFA 2-16 Martinez needed [facility] 00:00: - [facility] 00 [facility] Terazosin Terazosin Yes Diaz 1 capsule Common HCl HCl Martinez at bedtime [facility] Levothyroxi Levothyroxi Yes Diaz 1 tablet Common ne Sodium ne Sodium Martinez on an Spi rit empty - [facility] stomach in [facility] Tamsulosin Tamsulosin Yes Diaz 1 capsule Common HCl HCl Martinez [facility] Ramipril Ramipril Yes Diaz 1 capsule Common Martinez [facility] Pantoprazol Pantoprazol Yes Diaz 1 tablet Common e Sodium e Sodium Martinez [facility] Tab-A-Albert/ Tab-A-Albert/ Yes Diaz 1 tablet Common Iron Iron Martinez [facility] Omeprazole Omeprazole Yes Diaz 1 capsule Common Martinez [facility] Metformin Metformin Yes Diaz 1 tablet Common HCl HCl Martinez with a Spirit meal [facility] GlipiZIDE GlipiZIDE Yes Diaz 1 tablet Common XL XL Martinez with food [facility] Ramipril Ramipril Yes Diaz 1 capsule Common Martinez [facility] GlipiZIDE GlipiZIDE Yes Diaz 1 tablet Common XL XL Martinez with food [facility] Metformin Metformin Yes Diaz 1 tablet Common HCl HCl Martinez with a [facility] Omeprazole Omeprazole Yes Diaz TAKE 1 Common Martinez CAPSULE BY Spirit MOUTH - [facility] EVERY DAY [facility] Terazosin Terazosin Yes Diaz TAKE 1 C ommon HCl HCl Martinez CAPSULE BY [facility] MOUTH - [facility] TW[facility] BED[facility] Center Procedures This patient has no known procedures. Encounters Start End Encounter Admission Attending Care Care Encounter Source Date/Time Date/Time Type Type Clinicians Facility Department ID 2021-08-02 Outpatient Martinez [facility] [id number] Common 14:09:01 Diaz [facility] 2021-07-24 Inpatient Inocencio Garcia [facility] [id number] [facility] 08:45:00 [id number] [facility] 2021-07-19 Inpatient Inocencio Garcia [facility] [id number] [facility] 15:00:00 [id number] [facility] 2021-07-02 [facility] [id number] Common 11:29:00 Diaz [facility] 2021-05-31 Outpatient Martinez, [facility] [id number] Common 09:24:01 Diaz [id number] [facility] 2021-05-29 Outpatient Martinez, [facility] [id number] Common 14:27:43 Diaz [facility] 2021-05-29 Outpatient Martinez, [facility]MLC [facility] [id number] Common 14:16:37 Diaz [id number] [facility] 2021-05-29 Outpatient Martinez, [facility]MLC [facility] [id number] Common 14:14:16 Diaz [id number] [facility] 2021-05-29 Outpatient Martinez, [facility] [id number] Common 13:55:59 Diaz [facility] 2021-05-29 Outpatient Martinez, [facility]C [facility] [id number] Common 13:17:39 Diaz [id number] [facility] 2021-05-29 Outpatient Martinez, [facility]MLC [facility] [id number] Common 13:17:10 Diaz [id number] [facility] 2021-05-29 Outpatient Martinez, [facility]MLC [facility] [id number] Common 12:42:19 Diaz [id number] [facility] 2021-05-29 Outpatient Martinez, [facility] [id number] Common 12:40:06 Diaz [id number] [facility] 2021-05-29 Outpatient Martinez, [facility]C [facility] [id number] Common 12:16:45 Diaz 24484 [facility] 2021-05-29 Outpatient Martinez, [facility] [id number] Common 12:04:48 Diaz 36114 [facility] 2021-05-29 Outpatient Martinez, [facility] [id number] Common 11:16:20 Diaz [id number] [facility] 2021-05-29 Outpatient Martinez, [facility] [id number] Common 11:07:13 Diaz 45705 [facility] 2021-05-29 Outpatient Martinez, [facility] [id number] Common 11:02:23 [facility] [id number] [facility] 2021-10-16 2021-10-16 ambulatory [facility]C [facility] [id number] Common 00:00:00 00:00:00 [facility] 2021-10-16 2021-10-16 ambulatory [facility]C [facility] [id number] Common 00:00:00 00:00:00 [facility] 2021-08-22 2021-08-22 ambulatory [facility]MLC [facility] [id number] Common 00:00:00 00:00:00 [facility] 2021-08-19 2021-08-19 ambulatory [facility]C [facility] [id number] Common 00:00:00 00:00:00 [facility] 2021-08-02 2021-08-02 ambulatory [facility]MLC [facility] [id number] Common 00:00:00 00:00:00 [facility] 2021-08-02 2021-08-02 ambulatory [facility]MLC [facility] [id number] Common 00:00:00 00:00:00 [facility] 2021-08-02 2021-08-02 ambulatory [facility]C [facility] [id number] Common 00:00:00 00:00:00 [facility] 2021-07-02 2021-07-02 ambulatory [facility]C [facility] [id number] Common 00:00:00 00:00:00 [facility] 2021-06-12 2021-06-12 ambulatory [facility]C [facility] [id number] Common 00:00:00 00:00:00 [facility] 2021-06-11 2021-06-11 ambulatory [facility]C ST[facility] [id number] Common 00:00:00 00:00:00 [facility] 2021-06-03 2021-06-03 ambulatory [facility]MLC [facility] [id number] Common 00:00:00 00:00:00 [facility] 2021-05-30 2021-05-30 ambulatory [facility]MLC [facility] [id number] Common 00:00:00 00:00:00 [facility] 2021-05-30 2021-05-30 ambulatory [facility]MLC [facility] [id number] Common 00:00:00 00:00:00 [facility] 2021-03-25 2021-03-25 ambulatory [facility]C [facility] [id number] Common 00:00:00 00:00:00 [facility] 2021-03-22 2021-03-22 ambulatory [facility]MLC ST[facility] [id number] Common 00:00:00 00:00:00 [facility] 2021-03-08 2021-03-08 ambulatory [facility]MLC [facility] [id number] Common 00:00:00 00:00:00 [facility] 2021-02-04 2021-02-04 Outpatient [facility]C [facility] [id number] Common 00:00:00 00:00:00 [facility] 2021-02-04 2021-02-04 Outpatient [facility]C [facility] [id number] Common 00:00:00 00:00:00 [facility] 2021-01-23 2021-01-23 Outpatient [facility]C [facility] [id number] Common 00:00:00 00:00:00 [facility] 2021-01-18 2021-01-18 Outpatient [facility]C [facility] [id number] Common 00:00:00 00:00:00 [facility] 2020-12-06 2020-12-06 Outpatient [facility]C [facility] [id number] Common 00:00:00 00:00:00 [facility] 2020-11-13 2020-11-13 Outpatient [facility]C [facility] [id number] Common 00:00:00 00:00:00 [facility] 2020-10-29 2020-10-29 Outpatient [facility]C [facility] [id number] Common 00:00:00 00:00:00 [facility] 2020-10-29 2020-10-29 Outpatient [facility]C [facility] [id number] Common 00:00:00 00:00:00 [facility] 2020-10-23 2020-10-23 Outpatient [facility]C [facility] [id number] Common 00:00:00 00:00:00 [facility] 2020-10-22 2020-10-22 Outpatient [facility]C [facility] [id number] Common 00:00:00 00:00:00 [facility] 2020-10-16 2020-10-16 Outpatient [facility]C [facility] [id number] Common 00:00:00 00:00:00 [facility] 2020-10-15 2020-10-15 Outpatient [facility]C [facility] [id number] Common 00:00:00 00:00:00 [facility] 2020-09-13 2020-09-13 Outpatient [facility]C [facility] [id number] Common 00:00:00 00:00:00 [facility] 2020-08-07 2020-08-07 Outpatient [facility] [id number] Common 00:00:00 00:00:00 [facility] 2020-07-23 2020-07-23 Outpatient [facility] [id number] Common 00:00:00 00:00:00 [facility] 2020-07-17 2020-07-17 Outpatient [facility]C ST[facility] [id number] Common 00:00:00 00:00:00 [facility] 2020-05-28 2020-05-28 Outpatient [facility]C [facility] [id number] Common 00:00:00 00:00:00 [facility] 2020-05-16 2020-05-16 Outpatient [facility]C [facility] [id number] Common 00:00:00 00:00:00 [facility] 2020-05-15 2020-05-15 Outpatient [facility]C ST[facility] [id number] Common 00:00:00 00:00:00 [facility] 2020-05-09 2020-05-09 Outpatient [facility]C ST[facility] [id number] Common 00:00:00 00:00:00 [facility] 2020-04-18 2020-04-18 Outpatient [facility] [id number] Common 00:00:00 00:00:00 [facility] 2020-04-12 2020-04-12 Outpatient [facility]C ST[facility] [id number] Common 00:00:00 00:00:00 [facility] 2020-03-20 2020-03-20 Outpatient [facility]C [facility] [id number] Common 00:00:00 00:00:00 [facility] 2020-03-15 2020-03-15 Outpatient [facility]C ST[facility] [id number] Common 00:00:00 00:00:00 [facility] 2020-03-14 2020-03-14 Outpatient [facility] [id number] Common 00:00:00 00:00:00 [facility] 2020-02-27 2020-02-27 Outpatient [facility] [id number] Common 00:00:00 00:00:00 [facility] 2020-01-18 2020-01-18 [facility] [id number] Common 14:40:00 14:40:[address] [facility] 2020-01-11 2020-01-11 [facility] [id number] Common 15:38:00 15:38:[address] [facility] 2019-10-18 2019-10-18 [facility] [id number] Common 15:00:00 15:00:[address] [facility] 2019-09-29 2019-09-29 [facility] [id number] Common 08:15:00 08:15:[address] [facility] [address] [facility] 2019-08-26 2019-08-26 [facility] [id number] Common 10:43:00 10:43:[address] [facility] 2019-07-06 2019-07-06 [facility] [id number] Common 14:45:00 14:45:[address] [facility] 2019-07-06 2019-07-06 [facility] [id number] Common 14:00:00 14:00:[address] [facility] 2019-04-18 2019-04-18 [facility] [id number] Common 11:56:00 11:56:[address] [facility] 2019-03-24 2019-03-24 [facility] [id number] Common 15:21:00 15:21:[address] [facility] 2019-03-24 2019-03-24 [facility] [id number] Common 15:11:00 15:11:[address] [facility] 2019-03-23 2019-03-23 [facility] [id number] Common 14:29:00 14:29:[address] [facility] 2019-03-22 2019-03-22 [facility] [id number] Common 16:20:00 16:20:[address] [facility] 2019-03-22 2019-03-22 [facility] [id number] Common 14:45:00 14:45:[address] [facility] 2019-03-17 2019-03-17 [facility] [id number] Common 14:00:00 14:00:00 t Specialty/U Sp silvia Specialty rology - [facility] 2019-03-17 2019-03-17 [facility] [id number] Common 08:44:00 08:44:[address] [facility] 2019-03-04 2019-03-04 [facility] [id number] Common 09:01:00 09:01:[address] [facility] 2019-02-21 2019-02-21 Outpatient Benitasoni Alber [id number] Common 14:30:00 14:30:00 t [email or web address] [facility] [employer] [facility] Results This patient has no known results.
[2021-10-17 13:26] LABS: Absolute Lymphocytes (CBC) 0.4 K/uL (0.7-4.9); Hematocrit 29.3 % (39.6-49.0); Lymphocytes % 19.6 % (15.3-44.8); MPV 8.2 fL (7.6-11.3); RBC Red Blood Cell Count 3.37 M/uL (4.33-5.43)
[2021-10-17 13:43] LABS: Albumin 2.7 g/dL (3.4-5.0); Bilirubin Total 0.9 mg/dL (0.2-1.0); Potassium 4.9 mmol/L (3.5-5.1); Protein, Total 6.6 g/dL (6.4-8.2)
[2021-10-17 14:17] LABS: Blood Morphology Comment NOT SEEN (NOT SEEN); Platelet Estimate DECR; White Blood Cell Scan OK (OK)
--- NOTE | 2021-10-17 15:39 | EDPHYS ---
Physician Documentation [facility] Name: Vasu Balderas Age: 71 yrs Sex: Male : 1950 Arrival Date: 10/17/2021 Time: 12:36 Bed 15 Private MD: ED Physician Freddie Jaramillo HPI: 10/17 15:38 This 71 yrs old Male presents to ER via Wheelchair with complaints of Bloody Stools. ms3 15:38 The patient presents to the emergency department with rectal bleeding, melena, 8 times ms3 since symptom onset. Onset: The symptoms/episode began/occurred today. 15:38 Abdominal pain: none is appreciated. Modifying factors: The symptoms are alleviated by ms3 nothing, the symptoms are aggravated by nothing. Associated signs and symptoms: The patient has no apparent associated signs or symptoms. Severity of symptoms: At their worst the symptoms were. It is unknown whether or not the patient has had similar symptoms in the past. Historical: - Allergies: 12:40 Sulfa (Sulfonamide Antibiotics); tw2 - Home Meds: 17:41 spironolactone 50 mg Oral tab 1 tab once daily [Active]; loperamide 2 mg Oral cap 2 tw2 caps [Active]; furosemide 60 mg oral Oral tab 1 tab once daily [Active]; finasteride 5 mg oral tab 1 tab once daily [Active]; - PMHx: 12:40 Asthma; Cirrhosis; Diabetes - NIDDM; Diverticulitis; GERD; prostate problems; tw2 Sinusitis; Sleep Apnea; 12:41 polyps; Ulcer; tw2 - PSHx: 12:40 Appendectomy; Tonsillectomy; tw2 - Immunization history:: Adult Immunizations. - Social history:: Smoking status: . ROS: 15:38 Constitutional: Negative for fever, and chills. Neck: Negative for injury, pain, and ms3 swelling, Cardiovascular: Negative for chest pain, and palpitations. Respiratory: Negative for shortness of breath, cough, wheezing, and pleuritic chest pain, Abdomen/GI: Black/Bloody bowel movements MS/Extremity: Negative for injury and deformity, Skin: Negative for injury, rash, and discoloration, Allergy/Immunology: Negative for hives, rash, and allergies. 15:38 All other systems are negative. Exam: 15:38 Constitutional: This is a well developed, well nourished patient who is awake, alert, ms3 and in no acute distress. Head/Face: Normocephalic, atraumatic. Neck: Trachea midline, no cervical lymphadenopathy. Supple, full range of motion without nuchal rigidity, or vertebral point tenderness. No Meningismus. Chest/axilla: Normal chest wall appearance and motion. Nontender with no deformity. Cardiovascular: Regular rate and rhythm with a normal S1 and S2. No gallops, murmurs, or rubs. Normal PMI, no JVD. No pulse deficits. Respiratory: Lungs have equal breath sounds bilaterally, clear to auscultation and percussion. No rales, rhonchi or wheezes noted. No increased work of breathing, no retractions or nasal flaring. Abdomen/GI: Soft, non-tender, with normal bowel sounds. No distension or tympany. No guarding or rebound. No evidence of tenderness throughout. Skin: Warm, dry with normal turgor. Normal color with no rashes, no lesions, and no evidence of cellulitis. Psych: Awake, alert, with orientation to person, place and time. Behavior, mood, and affect are within normal limits. Vital Signs: 12:36 BP 125 / 58; Pulse 69; Resp 17; Temp 97.9(TE); Pulse Ox 99% on R/A; Weight 103.42 kg tw2 (R); Height 6 ft. 0 in. (182.88 cm); 13:18 BP 112 / 55; Pulse 73; Resp 18 S; Pulse Ox 98% on R/A; aa5 14:37 BP 110 / 63; Pulse 71; Resp 17; Pulse Ox 95% on R/A; tw2 15:30 BP 103 / 47; Pulse 72; Resp 15; Pulse Ox 99% on R/A; tw2 16:15 BP 122 / 63; Pulse 76; Resp 17; Pulse Ox 100% on R/A; tw2 17:00 BP 124 / 72; Pulse 78; Resp 14; Pulse Ox 98% on R/A; tw2 17:54 BP 118 / 62; Pulse 83; Resp 19; Pulse Ox 95% on R/A; tw2 12:36 Body Mass Index 30.92 (103.42 kg, 182.88 cm) tw2 MDM: 13:09 Patient medically screened. ms3 15:38 Differential diagnosis: gastritis, varices. Data reviewed: vital signs, nurses notes, ms3 lab test result(s), and as a result, I will transfer for GI. 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 Counseling: I had a detailed discussion with the patient and/or guardian regarding: the historical points, exam findings, and any diagnostic results supporting the discharge/admit diagnosis, lab results, the need to transfer to another facility. ED course: Discussed with patient necessity of transfer and he understands/ agrees with plan. All questions answered. Patient remains in stable condition with 1 melanotic stool in ED.. 10/17 12:48 Order name: CBC with Diff; Complete Time: 15:37 ms3 10/17 12:48 Order name: CMP; Complete Time: 15:37 ms3 10/17 12:48 Order name: Lipase; Complete Time: 15:37 ms3 10/17 12:48 Order name: Type And Screen ms3 10/17 13:26 Order name: Guiac em1 10/17 13:31 Order name: CBC Smear Scan; Complete Time: 15:37 EDMS 10/17 12:48 Order name: IV Saline Lock; Complete Time: 13:31 ms3 10/17 12:48 Order name: Labs collected and sent; Complete Time: 13:31 ms3 10/17 13:35 Order name: COVID-19 SARS RT PCR (Document "Date of Onset" if Symptomatic); Complete tw2 Time: 15:37 10/17 14:55 Order name: Antibody Identification EDMS Administered Medications: 16:24 Drug: ProTONIX (pantoprazole) 40 mg Route: IVP; Site: PICC; tw2 17:53 Follow up: Response: No adverse reaction tw2 17:50 Drug: Octreotide Infusion (50 mcg/hr) - (Octreotide 500 mcg, NS 0.9% 500 ml) Route: IV; tw2 Rate: 50 ml/hr; Site: PICC; 17:52 Follow up: IV Status: Infusion continued upon transfer tw2 Disposition Summary: 10/17/21 15:38 Transfer Ordered Transfer Location: [facility] ms3 Reason: Higher level of care ms3 Condition: Stable ms3 Problem: new ms3 Symptoms: are unchanged ms3 Accepting Physician: Jazlyn(10/17/21 17:56) tw2 Diagnosis - GI Bleed/ Gastrointestinal hemorrhage, unspecified ms3 - Anemia, unspecified ms3 - Thrombocytopenia, unspecified ms3 - Unspecified cirrhosis of liver ms3 Forms: - Medication Reconciliation Form ms3 - SBAR form ms3 Signatures: Dispatcher [employer] EDOsiris Celestin RN RN tw2 Freddie Jaramillo DO DO ms3 Corrections: (The following items were deleted from the chart) 16:21 15:38 . ms3 ms3 17:56 16:21 Jazlyn ms3 tw2 20:19 20:17 The patient presents to the emergency department with rectal bleeding, melena, 8 ms3 times since symptom onset, ms3 20:19 20:17 Onset: The symptoms/episode began/occurred today, ms3 ms3 20:19 20:17 This 71 yrs old Male presents to ER via Wheelchair with complaints of Bloody ms3 Stools. ms3
--- NOTE | 2021-10-17 15:39 | ER ---
Nurse's Notes [facility] Name: Vasu Balderas Age: 71 yrs Sex: Male : 1950 Arrival Date: 10/17/2021 Time: 12:36 Bed 15 Private MD: Diagnosis: GI Bleed/ Gastrointestinal hemorrhage, unspecified;Anemia, unspecified;Thrombocytopenia, unspecified;Unspecified cirrhosis of liver Presentation: 10/17 12:36 Chief complaint: ZI Dodson from day surgery reports he was there getting his Vancomycin tw2 for cellulitis in , had a BM with dark tarry blood noted in stool. also had a reaction to platelets in preparation for GI procedure 1 mth ago. Coronavirus screen: At this time, the client does not indicate any symptoms associated with coronavirus-19. Ebola Screen: Patient denies travel to an Ebola-affected area in the 21 days before illness onset. Initial Sepsis Screen: Does the patient meet any 2 criteria? No. Patient's initial sepsis screen is negative. Does the patient have a suspected source of infection? No. Patient's initial sepsis screen is negative. Risk Assessment: Do you want to hurt yourself or someone else? Patient reports no desire to harm self or others. Onset of symptoms was October 17, 2021. 12:36 Method Of Arrival: Wheelchair tw2 12:36 Acuity: MABEL 3 tw2 Triage Assessment: 12:41 General: Appears uncomfortable, ill, Behavior is calm, cooperative, appropriate for tw2 age. Pain: Denies pain. Neuro: Level of Consciousness is awake, alert, obeys commands, Oriented to person, place, time, situation. Respiratory: Airway is patent Respiratory effort is even, unlabored, Respiratory pattern is regular, symmetrical. GI: Abdomen is round distended, Reports bloody stool, nausea, "normally its black tar stools that been going on for months, but today it is bright red". : No signs and/or symptoms were reported regarding the genitourinary system. Derm: Skin is jaundiced, pale, Skin temperature is warm. Musculoskeletal: Historical: - Allergies: 12:40 Sulfa (Sulfonamide Antibiotics); tw2 - Home Meds: 17:41 spironolactone 50 mg Oral tab 1 tab once daily [Active]; loperamide 2 mg Oral cap 2 tw2 caps [Active]; furosemide 60 mg oral Oral tab 1 tab once daily [Active]; finasteride 5 mg oral tab 1 tab once daily [Active]; - PMHx: 12:40 Asthma; Cirrhosis; Diabetes - NIDDM; Diverticulitis; GERD; prostate problems; tw2 Sinusitis; Sleep Apnea; 12:41 polyps; Ulcer; tw2 - PSHx: 12:40 Appendectomy; Tonsillectomy; tw2 - Immunization history:: Adult Immunizations. - Social history:: Smoking status: . Screenin:43 Abuse screen: Denies threats or abuse. Nutritional screening: No deficits noted. tw2 Tuberculosis screening: No symptoms or risk factors identified. Fall Risk Secondary diagnosis (15 points) impaired mobility. Assessment: 12:43 Reassessment: see triage assessment. tw2 13:30 Reassessment: pt left a bm sample in a specimen collection contain. Melana stool noted. tw2 GUIAC +, provider notified. 13:32 Reassessment: Patient appears in no apparent distress at this time. No changes from tw2 previously documented assessment. Patient and/or family updated on plan of care and expected duration. Pain level reassessed. 15:03 Reassessment: Esdras Blue in Blood bank notified pt had received transfusion here tw2 several months ago and did have a reaction to platelets 1 month ago with severe SOB, chills, and chest pain, provider notified of platelet reaction. 16:15 Reassessment: Patient appears in no apparent distress at this time. No changes from tw2 previously documented assessment. Patient and/or family updated on plan of care and expected duration. Pain level reassessed. pt asked if provider can come give him an update on results and poc, provider notfiied. 17:55 Reassessment: Patient appears in no apparent distress at this time. No changes from tw2 previously documented assessment. Patient and/or family updated on plan of care and expected duration. Pain level reassessed. Vital Signs: 12:36 BP 125 / 58; Pulse 69; Resp 17; Temp 97.9(TE); Pulse Ox 99% on R/A; Weight 103.42 kg tw2 (R); Height 6 ft. 0 in. (182.88 cm); 13:18 BP 112 / 55; Pulse 73; Resp 18 S; Pulse Ox 98% on R/A; aa5 14:37 BP 110 / 63; Pulse 71; Resp 17; Pulse Ox 95% on R/A; tw2 15:30 BP 103 / 47; Pulse 72; Resp 15; Pulse Ox 99% on R/A; tw2 16:15 BP 122 / 63; Pulse 76; Resp 17; Pulse Ox 100% on R/A; tw2 17:00 BP 124 / 72; Pulse 78; Resp 14; Pulse Ox 98% on R/A; tw2 17:54 BP 118 / 62; Pulse 83; Resp 19; Pulse Ox 95% on R/A; tw2 12:36 Body Mass Index 30.92 (103.42 kg, 182.88 cm) tw2 ED Course: 12:36 Patient arrived in ED. tw2 12:39 Freddie Jaramillo DO is Attending Physician. ms3 12:39 Bed in low position. Call light in reach. oil lease buyer on. Pulse ox on. NIBP on. tw2 12:40 Triage completed. tw2 12:43 Arm band placed on. tw2 12:44 Warm blanket given. tw2 12:51 Osiris Chamberlain, ZI is Primary Nurse. tw2 13:31 Accessed PICC line. authorize use for blood collection from RIGHT upper arm picc per tw2 Dr. Jaramillo. 13:39 COVID-19 SARS RT PCR (Document "Date of Onset" if Symptomatic) Sent. kendall 16:21 Awaiting: Octreotide from pharmacy. tw2 16:36 Report given to ZI David with [facility]. tw2 17:37 Awaiting: Octreotide from pharmacy, spoke with Monico Rucker and he will deliver courtney.tw2 17:55 No provider procedures requiring assistance completed. PICC remains inplace upon tw2 transfer. Administered Medications: 16:24 Drug: ProTONIX (pantoprazole) 40 mg Route: IVP; Site: PICC; tw2 17:53 Follow up: Response: No adverse reaction tw2 17:50 Drug: Octreotide Infusion (50 mcg/hr) - (Octreotide 500 mcg, NS 0.9% 500 ml) Route: IV; tw2 Rate: 50 ml/hr; Site: PICC; 17:52 Follow up: IV Status: Infusion continued upon transfer tw2 Medication: 12:43 VIS not applicable for this client. tw2 Outcome: 15:38 ER care complete, transfer ordered by . ms3 17:56 Transferred by ground EMS to [facility]. tw2 17:56 Condition: stable 17:56 Instructed on the need for transfer. 17:56 Patient left the ED. tw2 Signatures: Linsey Christian, RN RN aa5 Osiris Chamberlain RN RN tw2 Freddie Jaramillo, DO DO ms3 Au-StagerPia RN RN kendall Corrections: (The following items were deleted from the chart) 12:44 12:39 Bed in low position. Call light in reach. tw2 tw2 13:30 13:30 Reassessment: pt left a bm sample in a specimen collection contain. GUIAC + tw2 tw2 13:40 13:31 BP 164 / 89; Pulse 54bpm; Resp 16bpm; Pulse Ox 98% RA; tw2 aa5 15:19 13:30 Reassessment: pt left a bm sample in a specimen collection contain. GUIAC +, tw2 provider notified. tw2 16:32 12:36 Chief complaint: ZI Dodson from day surgery reports he was there getting his tw2 Vancomycin for cellulitis in [place], had a BM with bright red blood in stool. also had a reaction to platelets in preparation for GI procedure 1 mth ago. tw2 16:35 12:36 Chief complaint: ZI Dodson from day surgery reports he was there getting his tw2 Vancomycin for cellulitis in [place], had a BM with bright red blood in stool. also had a reaction to platelets in preparation for GI procedure 1 mth ago. tw2
[2021-10-17] MEDS ORDERED: PANTOPRAZOLE 40 MG INJ ONE (16:27)
[2021-10-17] MEDS ORDERED: OCTREOTIDE 500 MCG in NA CHLORIDE 0.9% 500 ML IV ONE (18:00)
[2021-10-17 18:02] VITALS: TEMP 97.9
[2021-10-17 18:10] VITALS: BP 118/62; O2SAT 95
== END 2021-10-17 17:56 | disposition short-term general hospital (02) ==
LOC: ER 12:33
DX: D64.9 Anemia, unspecified (principal); D69.6 Thrombocytopenia, unspecified; K74.60 Unspecified cirrhosis of liver; E11.9 Type 2 diabetes mellitus without complications; J45.909 Unspecified asthma, uncomplicated; Z88.2 Allergy status to sulfonamides; Z20.822 Contact with and (suspected) exposure to COVID-19
CPT/HCPCS: 85025; 36415; 86900; 86850; 86870 ×2; 86901; 82272; 83690; 80053; 96375; 96374; 99285; U0003; J2354; C9113; J7040